=== PATIENT | female | born 1970 | race Caucasian/White ===

== ENCOUNTER 2016-09-11 20:07 | Inpatient (IN) | payer BC ==
[~2016-09-11] VITALS: Ht 162.6 cm; Wt 89.8 kg
[~2016-09-11 20:07] MED LIST: HYZAAR 100-251 EACH ORAL; JANUVIA100 MG ORAL; LANTUS SOL100 UNIT/1 SUBQ; SYNTHROID100 MCG ORAL
[2016-09-11 20:20] VITALS: BP 172/94
[2016-09-11] MEDS ORDERED: HYDROmorphone 1mg/ml Carpuject IVP ONE ×2 (20:30→22:45)
[2016-09-11] MEDS ORDERED: Enoxaparin 100mg Inj SUBQ ONE (20:30)
--- NOTE | 2016-09-11 20:33 | Emergency Room Report ---
History of Present Illness General Chief Complaint: Chest Pain Source: Patient (LORNA GARDNER D.O.) Present Illness HPI Patient presents with complaints of chest pain Chest tightness 11/05 patient reports that she had a filter put in to her lower extremity 3 months ago at [facility] [place] where she lives most of the time For the past several days she has not been able to take her Coumadin as she has been vomiting Denies any fevers or chills Denies any diarrhea However she has epigastric abdominal pain as well Denies any fall or trauma (LORNA GARDNER D.O.) Allergies: Coded Allergies: CODEINE (Verified Allergy, Unknown, SWELLING, ITCHING, 12/06/09) IBUPROFEN (Verified Allergy, Unknown, SWELLING, ITCHING, 12/06/09) METOCLOPRAMIDE (Verified Allergy, Unknown, SWELLING, ITCHING, 12/06/09) MORPHINE (Verified Allergy, Unknown, SWELLING, ITCHING, 12/06/09) Patient History Past Medical History: see triage record Pertinent Family History: none Last Menstrual Period: 09/02/16 Now: No Reviewed Nursing Documentation: PMH: Agreed, PSxH: Agreed (LORNA GARDNER D.O.) Nursing Documentation-PMH Hx Hypertension: Yes Hx Diabetes: Yes (LORNA GARDNER D.O.) Review of Systems All Other Systems: negative except mentioned in HPI (LORNA GARDNER D.O.) Physical Exam Vital Signs Date Time Temp Pulse Resp B/P Pulse Ox O2 Delivery O2 Flow Rate FiO2 09/11/16 20:11 98.1 58 17 172/94 99 Room Air Sp02 EP Interpretation: reviewed, normal General Appearance: no apparent distress Head: normocephalic, atraumatic Eyes: bilateral eye EOMI, bilateral eye PERRL ENT: hearing grossly normal, normal pharynx, TMs + canals normal, uvula midline Neck: full range of motion, supple, no meningismus, no bony tend Respiratory: lungs clear, normal breath sounds, no rhonchi, no respiratory distress, no retraction, no accessory muscle use Cardiovascular #1: normal peripheral pulses, regular rate, rhythm, no edema, no gallop, no JVD, no murmur Gastrointestinal: normal bowel sounds, non tender, soft, no mass, no organomegaly, non-distended, no guarding, no hernia, no pulsatile mass, no rebound Genitourinary: no CVA tenderness Musculoskeletal: normal inspection Neurologic: oriented x3, responsive, pruner III-XII nml as tested, motor strength/ tone normal, sensory intact Psychiatric: mood/affect normal Skin: normal color, no rash, warm/dry, palpation normal Lymphatic: normal inspection, no adenopathy (LORNA GARDNER D.O.) Medical Decision Making Diagnostic Impression: Primary Impression: Pulmonary embolism Qualified Codes: I26.99 - Other pulmonary embolism without acute cor pulmonale Additional Impressions: Post IVC filter placement Non compliance w medication regimen ER Course Patient is a fairly complex patient with multiple differential to consideration including but not limited to cardiac cardiopulmonary and vascular emergencies Patient's multiple comorbidities is also on Coumadin however Has not been able taken over the past several days secondary to her nausea and vomiting therefore patient was given Lovenox upon arrival given her symptomatology Patient will require further inpatient care (LORNA GARDNER D.O.) ER Course Signed out to me by Dr. Gardner. Please see his complete note. Radiologist called with + CTA at 0:37 - small burden RLL. Patient treated for pain. VS stable. Anticoagulation ordered by Dr. Gardner. Notified Dr. Alvarado. (Lion Blount M.D.) EKG Diagnostic Results Rate: bradycardiac Rhythm: other ST Segments: no acute changes (LORNA GARDNER D.O.) Rhythm Strip Diag. Results EP Interpretation: yes Rate: 55 Rhythm: no PVC's, no ectopy, other - Sinus bradycardia (LORNA GARDNER D.O.) Rhythm: NSR, no PVC's, no ectopy (Lion Blount M.D.) Last Vital Signs Date Time Temp Pulse Resp B/P Pulse Ox O2 Delivery O2 Flow Rate FiO2 09/11/16 20:11 98.1 58 17 172/94 99 Room Air Status: improved (LORNA GARDNER D.O.) Last Vital Signs Date Time Temp Pulse Resp B/P Pulse Ox O2 Delivery O2 Flow Rate FiO2 09/12/16 11:39 97.9 58 18 146/72 98 Room Air Status: improved (Lion Blount M.D.) Disposition: ADMITTED INPATIENT Condition: Serious LORNA GARDNER D.O. Sep 11, 2016 20:33 Lion Blount M.D. Sep 12, 2016 00:38
[2016-09-11 21:11] LABS: BASOPHILS % (AUTO) 1.4 % (0.0-2.0); EOSINOPHILS % (AUTO) 1.3 % (0.0-3.0); LYMPHOCYTES % (AUTO) 31.1 % (20.0-45.0); MEAN CORPUSCULAR HEMOGLOBIN 24.8 PG (27.0-31.0); MEAN CORPUSCULAR HGB CONC 30.5 G/DL (32.0-36.0); MEAN CORPUSCULAR VOLUME 82 FL (80-99); MEAN PLATELET VOLUME 6.4 FL (6.5-10.1); MONOCYTES % (AUTO) 8.9 % (1.0-10.0); NEUTROPHILS % (AUTO) 57.3 % (45.0-75.0); PLATELET COUNT 263 K/UL (150-450); RED BLOOD COUNT 3.93 M/UL (4.20-5.40); RED CELL DISTRIBUTION WIDTH 15.5 % (11.6-14.8); WHITE BLOOD COUNT 3.6 K/UL (4.8-10.8)
[2016-09-11 21:23] LABS: PROTHROMBIN TIME 10.5 SEC (9.30-11.50)
[2016-09-11 21:29] LABS: TROPONIN I < 0.30 ng/mL (<=0.30)
[2016-09-11 21:30] LABS: ALANINE AMINOTRANSFERASE 14 U/L (3-33); ALBUMIN/GLOBULIN RATIO 1.3 (1.0-2.7); ANION GAP 16 (5-15); ASPARTATE AMINO TRANSFERASE 11 U/L (5-40); CALCIUM 9.1 mg/dL (8.6-10.2); CARBON DIOXIDE 25 mEQ/L (20-30); CHLORIDE 105 mEQ/L (98-107); CREATININE 0.7 mg/dL (0.5-0.9); GLOMERULAR FILTRATION RATE > 60 mL/min (>60); HEMOLYSIS 1; LIPASE 22 U/L (< 60); POTASSIUM 3.3 mEQ/L (3.4-4.9); SODIUM 146 mEQ/L (135-145)
[2016-09-11 21:40] LABS: CKMB < 1.5 ng/mL (< 3.8)
[2016-09-11 22:20] VITALS: BP 151/65
[2016-09-12] VITALS (7 sets, daily range): BP systolic 136–152; BP diastolic 70–88
[2016-09-12] MEDS ORDERED: LORazepam 0.5mg tab ORAL ONE (01:00)
[2016-09-12] MEDS ORDERED: OXYCODONE HCL30 MG PO (01:32)
[2016-09-12] MEDS ORDERED: AMLODIPINE BESY10 MG PO (01:32)
[2016-09-12] MEDS ORDERED: WARFARIN SODIU7.5 MG PO (01:32)
[2016-09-12] MEDS ORDERED: OXYCONTIN40 MG ORAL (01:33)
[2016-09-12] MEDS: HYDROmorphone 1mg/ml Carpuject IVP PRN ×3 (02:09→10:14)
[2016-09-12 04:48] LABS: TROPONIN I < 0.30 ng/mL (<=0.30)
--- NOTE | 2016-09-12 09:02 | Diagnostic Imaging Report ---
ndication: Chest pain Technique: IV administration nonionic contrast. Spiral acquisitions obtained from the lung bases to the lung apices. Multiplanar and 3-D reconstructions were generated. Total dose length product 1007 mGycm. CTDIvol(s) 12, 12, 25, 32 mGy. Dose reduction achieved using automated exposure control Comparison: None Findings: Pulmonary arterial opacification is adequate. A small filling defect is seen in the distal right lower lobe pulmonary artery, extending into the posterior medial and posterior lateral basilar segmental branches. A tiny filling defect is also seen within the left lower lobe lateral basilar segmental branch. Neither these appear to be occlusive. There is no evidence of thoracic aortic aneurysm or dissection. No pulmonary arterial dilatation. No evidence of right ventricular dilatation. The heart size is normal. The lungs demonstrate posterior dependent atelectatic changes, otherwise unremarkable. No infiltrates, effusions, masses, or nodules. The upper abdomen demonstrates evidence of prior gastric bypass surgery and cholecystectomy. Opacities within the bilateral renal kyrie presumably represent contrast excretion into the collecting system. On the cost accounting manager image, an inferior vena cava filter is noted. No pericardial effusion. No mediastinal or hilar mass or adenopathy. No axillary or chest wall mass or adenopathy. Impression: Positive for small bilateral lower lobe segmental pulmonary emboli, as described Patient has an inferior vena cava filter, demonstrated on cost accounting manager image. Dr. Murphy was notified of this at the time of interpretation as it was not described on the preliminary report No acute pulmonary process. There are minimal posterior dependent atelectatic changes Incidental findings as noted, including prior cholecystectomy, prior gastric bypass surgery The CT scanner at [facility] is accredited by the [employer] and the scans are performed using protocols designed to limit radiation exposure to as low as reasonably achievable to attain images of sufficient resolution adequate for diagnostic evaluation.
--- NOTE | 2016-09-12 12:43 | History and Physical ---
History of Present Illness General Reason for Hospitalization: Chest Pain Present Illness HPI 46 yr old female presents with complaints of right sided chest pain and chest tightness 03/07 x 4days, also c/o N/V and diarrhea x 4days, patient reports that she had a filter put in to her lower extremity 3 months ago at [facility] [place] where she lives most of the time. For the past several days she has not been able to take her Coumadin as she has been vomiting. Denies any fevers or chills Denies any fall or trauma Allergies: Coded Allergies: CODEINE (Verified Allergy, Unknown, SWELLING, ITCHING, 12/06/09) IBUPROFEN (Verified Allergy, Unknown, SWELLING, ITCHING, 12/06/09) METOCLOPRAMIDE (Verified Allergy, Unknown, SWELLING, ITCHING, 12/06/09) MORPHINE (Verified Allergy, Unknown, SWELLING, ITCHING, 12/06/09) Medication History Scheduled Amlodipine Besylate* (Amlodipine Besylate*), 10 MG PO DAILY, (Reported) Insulin Glargine (Lantus), 15 UNITS SUBQ BEDTIME, (Reported) Levothyroxine Sodium* (Synthroid*), 100 MCG ORAL DAILY, (Reported) Losartan/Hydrochlorothiazide 100-25 Tablet (Hyzaar 100-25 Tablet), 1 TAB ORAL DAILY, (Reported) Oxycodone Hcl Er* (Oxycontin*), 60 MG ORAL THREE TIMES A DAY, (Reported) Scheduled PRN Oxycodone Hcl (Oxycodone Hcl), 30 MG PO EVERY 3 HOURS PRN for Breakthrough Pain, (Reported) Discontinued Medications Sitagliptin (Januvia), 100 MG ORAL DAILY, (Reported) Discontinued Reason: Pt stopped taking med Warfarin Sod* (Warfarin Sod*), 7.5 MG PO DAILY, (Reported) Discontinued Reason: Medication dose changed Patient History History Provided By: Patient Healthcare decision maker Resuscitation status Full Code Advanced Directive on File Past Medical/Surgical History Past Medical/Surgical History: (1) Hypotension (2) Chronic pain disorder (3) Pulmonary embolism Social History Social History: (1) Does not smoke (2) No illicit drug use (3) No history of alcohol use Review of Systems Constitutional: Reports: weakness Eye: Denies: acuity changes, blurred vision, discharge, double vision, eye pain , no symptoms, nose congestion, nose pain, other, see HPI, tearing ENT: Denies: ear discharge, ear pain, hearing loss, mouth pain, nasal discharge , no symptoms, nose congestion, nose pain, other, see HPI, throat pain, throat swelling Respiratory: Denies: HUERTA, cough, no symptoms, orthopnea, other, see HPI, shortness of breath, sputum, stridor, wheezing Cardiovascular: Reports: chest pain Gastrointestinal: Reports: abdominal pain Genitourinary: Denies: discharge, dysuria, frequency, hematuria, incontinence, no symptoms, other, pain, retention, see HPI, urgency, vag bleed/dc Musculoskeletal: Reports: back pain Skin: Denies: change in color, change in hair/nails, dryness, lesions, no symptoms, other, rash, see HPI Psychiatric: Denies: HI, SI, anxiety, depressed feelings, emotional problems, hallucinations, no symptoms, other, prior hx, see HPI Neurological: Denies: dizziness, focal weakness, headache, no symptoms, numbness, other, paresthesia, see HPI, seizure, syncope, tingling, tremors Endocrine: Denies: excessive sweating, flushing, increased thirst, increased urine, intolerance to temperature, no symptoms, other, see HPI, unexplained weight loss Hematologic/Lymphatic: Denies: anemia, blood clots, diathesis, easy bleeding, easy bruising, no symptoms, other, see HPI, swollen glands Physical Exam General Appearance: no apparent distress, alert Lines, tubes and drains: peripheral HEENT: normocephalic, atraumatic Neck: normal alignment Respiratory/Chest: normal breath sounds, no respiratory distress Cardiovascular/Chest: normal rate, regular rhythm, no JVD Abdomen: non tender, soft, no organomegaly Extremities: non-tender, normal inspection, no calf tenderness Neurologic: alert, oriented x 3, responsive Last 24 Hour Vital Signs Date Time Temp Pulse Resp B/P Pulse Ox O2 Delivery O2 Flow Rate FiO2 09/12/16 11:39 97.9 58 18 146/72 98 Room Air 09/12/16 08:00 50 09/12/16 07:51 97.0 48 18 152/78 97 Room Air 09/12/16 04:00 97.7 49 20 146/81 97 Room Air 09/12/16 04:00 54 09/12/16 01:38 98.1 52 20 152/88 97 Room Air 09/12/16 00:57 98.1 57 18 149/76 99 Room Air 09/12/16 00:20 98.1 57 17 149/76 99 Room Air 09/11/16 22:20 98.1 56 17 151/65 99 Room Air 09/11/16 21:31 98.1 09/11/16 21:31 98.1 09/11/16 20:20 58 17 Room Air 09/11/16 20:20 98.1 58 17 172/94 99 Room Air 09/11/16 20:11 98.1 58 17 172/94 99 Room Air Intake and Output 09/11/16 09/12/16 19:00 07:00 Intake Total 100 ml Balance 100 ml Intake Other 100 ml # Voids 1 Laboratory Tests Test 09/11/16 20:50 09/12/16 04:05 White Blood Count 3.6 K/UL (4.8-10.8) L Red Blood Count 3.93 M/UL (4.20-5.40) L Hemoglobin 9.8 G/DL (12.0-16.0) L Hematocrit 32.0 % (37.0-47.0) L Mean Corpuscular Volume 82 FL (80-99) Mean Corpuscular Hemoglobin 24.8 PG (27.0-31.0) L Mean Corpuscular Hemoglobin Concent 30.5 G/DL (32.0-36.0) L Red Cell Distribution Width 15.5 % (11.6-14.8) H Platelet Count 263 K/UL (150-450) Mean Platelet Volume 6.4 FL (6.5-10.1) L Neutrophils (%) (Auto) 57.3 % (45.0-75.0) Lymphocytes (%) (Auto) 31.1 % (20.0-45.0) Monocytes (%) (Auto) 8.9 % (1.0-10.0) Eosinophils (%) (Auto) 1.3 % (0.0-3.0) Basophils (%) (Auto) 1.4 % (0.0-2.0) Prothrombin Time 10.5 SEC (9.30-11.50) Prothromb Time International Ratio 1.0 (0.9-1.1) Activated Partial Thromboplast Time 23 SEC (23-33) Sodium Level 146 mEQ/L (135-145) H Potassium Level 3.3 mEQ/L (3.4-4.9) L Chloride Level 105 mEQ/L (98-107) Carbon Dioxide Level 25 mEQ/L (20-30) Anion Gap 16 (5-15) H Blood Urea Nitrogen 7 mg/dL (7-23) Creatinine 0.7 mg/dL (0.5-0.9) Estimat Glomerular Filtration Rate > 60 mL/min (>60) Glucose Level 159 mg/dL (74-106) H Calcium Level 9.1 mg/dL (8.6-10.2) Total Bilirubin 0.5 mg/dL (0.0-1.2) Aspartate Amino Transf (AST/SGOT) 11 U/L (5-40) Alanine Aminotransferase (ALT/SGPT) 14 U/L (3-33) Alkaline Phosphatase 108 U/L (35-104) H Total Creatine Kinase 72 U/L (26-140) Creatine Kinase MB < 1.5 ng/mL (< 3.8) Creatine Kinase MB Relative Index Troponin I < 0.30 ng/mL (<=0.30) < 0.30 ng/mL (<=0.30) Pro-B-Type Natriuretic Peptide 258 pg/mL (0-125) H Total Protein 7.0 g/dL (6.6-8.7) Albumin 4.0 g/dL (3.5-5.2) Globulin 3.0 g/dL Albumin/Globulin Ratio 1.3 (1.0-2.7) Lipase 22 U/L (< 60) Height (Feet): 5 Height (Inches): 4.00 Weight (Pounds): 198 Medications Current Medications Medications (Trade) Dose Ordered Sig/Joey Route PRN Reason Start Time Stop Time Status Last Admin Dose Admin Dextrose (Dextrose 50%) STAT PRN IV Hypoglycemia 09/12/16 00:45 10/12/16 00:44 Enoxaparin Sodium (Lovenox) 100 mg EVERY 12 HOURS SUBQ 09/12/16 12:30 10/12/16 12:29 UNV Hydromorphone HCl (Dilaudid) 1 mg Q4H PRN IVP For Pain 09/12/16 01:30 09/19/16 01:29 09/12/16 10:14 Warfarin Sodium (Coumadin per pharmacy) 1 ea DAILY PRN MISC Per rx protocol 09/12/16 12:30 10/12/16 12:29 UNV Objective Narrative Impression: Positive for small bilateral lower lobe segmental pulmonary emboli, as described Patient has an inferior vena cava filter, demonstrated on content engineer image. Dr. Murphy was notified of this at the time of interpretation as it was not described on the preliminary report No acute pulmonary process. There are minimal posterior dependent atelectatic changes Incidental findings as noted, including prior cholecystectomy, prior gastric bypass surgery Assessment/Plan Problem List: (1) Non compliance w medication regimen ICD Codes: Z91.14 - Patient's other noncompliance with medication regimen SNOMED: 804063258 (2) Pulmonary embolism ICD Codes: I26.99 - Other pulmonary embolism without acute cor pulmonale SNOMED: 67416453, [id number] Qualifiers: Qualified Codes: I26.99 - Other pulmonary embolism without acute cor pulmonale (3) Chest pain ICD Codes: R07.9 - Chest pain, unspecified SNOMED: 36564332 (4) Vomiting ICD Codes: R11.10 - Vomiting, unspecified SNOMED: 733757197 (5) Diarrhea ICD Codes: R19.7 - Diarrhea, unspecified SNOMED: 10458922 Assessment/Plan Start lovenox and coumadin, f/u with hematology Daily INR Cardio consult Pulmo consult Monitor lytes BP control Pain management Lillian Dexter N.P. Sep 12, 2016 12:43
[2016-09-12 13:09] LABS: PROTHROMBIN TIME 10.5 SEC (9.30-11.50)
[2016-09-12 13:13] LABS: TROPONIN I < 0.30 ng/mL (<=0.30)
[2016-09-12] MEDS: LORazepam Inj 2mg/ml 1ml IV PRN ×3 (13:18→21:46)
--- NOTE | 2016-09-12 13:42 | Cardiology Report ---
APPROVED REPORT EKG Measurement Heart [id number] Sinus bradycardia Otherwise normal ECG
--- NOTE | 2016-09-12 13:49 | Infectious Diseases Prog Note ---
Assessment/Plan Problems: (1) Diarrhea Assessment & Plan: rule out infectious etiology , will send stool for culture , and C diff toxin, and start ceftriaxon with flagyl (2) Pulmonary embolism Assessment & Plan: needs full anticoagulation, since she was not taking her Coumadin at home due to vomiting. (3) Chest pain Assessment & Plan: suspect due to pulmonary embolisms, recommend immediate full anticoagulation, and HEM/ONC consult, needs to rule out ACS, monitor troponin , consult cards (4) Vomiting Assessment & Plan: continue supportive care, check lipase (5) S/P IVC filter Assessment & Plan: due to previous DVT Subjective Allergies: Coded Allergies: CODEINE (Verified Allergy, Unknown, SWELLING, ITCHING, 12/06/09) IBUPROFEN (Verified Allergy, Unknown, SWELLING, ITCHING, 12/06/09) METOCLOPRAMIDE (Verified Allergy, Unknown, SWELLING, ITCHING, 12/06/09) MORPHINE (Verified Allergy, Unknown, SWELLING, ITCHING, 12/06/09) Objective Vital Signs Last 24 Hour Vital Signs Date Time Temp Pulse Resp B/P Pulse Ox O2 Delivery O2 Flow Rate FiO2 09/12/16 11:39 97.9 58 18 146/72 98 Room Air 09/12/16 08:00 50 09/12/16 07:51 97.0 48 18 152/78 97 Room Air 09/12/16 04:00 97.7 49 20 146/81 97 Room Air 09/12/16 04:00 54 09/12/16 01:38 98.1 52 20 152/88 97 Room Air 09/12/16 00:57 98.1 57 18 149/76 99 Room Air 09/12/16 00:20 98.1 57 17 149/76 99 Room Air 09/11/16 22:20 98.1 56 17 151/65 99 Room Air 09/11/16 21:31 98.1 09/11/16 21:31 98.1 09/11/16 20:20 58 17 Room Air 09/11/16 20:20 98.1 58 17 172/94 99 Room Air 09/11/16 20:11 98.1 58 17 172/94 99 Room Air Height (Feet): 5 Height (Inches): 4.00 Weight (Pounds): 198 Laboratory Tests Test 09/11/16 20:50 09/12/16 04:05 09/12/16 12:15 White Blood Count 3.6 K/UL (4.8-10.8) L Red Blood Count 3.93 M/UL (4.20-5.40) L Hemoglobin 9.8 G/DL (12.0-16.0) L Hematocrit 32.0 % (37.0-47.0) L Mean Corpuscular Volume 82 FL (80-99) Mean Corpuscular Hemoglobin 24.8 PG (27.0-31.0) L Mean Corpuscular Hemoglobin Concent 30.5 G/DL (32.0-36.0) L Red Cell Distribution Width 15.5 % (11.6-14.8) H Platelet Count 263 K/UL (150-450) Mean Platelet Volume 6.4 FL (6.5-10.1) L Neutrophils (%) (Auto) 57.3 % (45.0-75.0) Lymphocytes (%) (Auto) 31.1 % (20.0-45.0) Monocytes (%) (Auto) 8.9 % (1.0-10.0) Eosinophils (%) (Auto) 1.3 % (0.0-3.0) Basophils (%) (Auto) 1.4 % (0.0-2.0) Prothrombin Time 10.5 SEC (9.30-11.50) 10.5 SEC (9.30-11.50) Prothromb Time International Ratio 1.0 (0.9-1.1) 1.0 (0.9-1.1) Activated Partial Thromboplast Time 23 SEC (23-33) 25 SEC (23-33) Sodium Level 146 mEQ/L (135-145) H Potassium Level 3.3 mEQ/L (3.4-4.9) L Chloride Level 105 mEQ/L (98-107) Carbon Dioxide Level 25 mEQ/L (20-30) Anion Gap 16 (5-15) H Blood Urea Nitrogen 7 mg/dL (7-23) Creatinine 0.7 mg/dL (0.5-0.9) Estimat Glomerular Filtration Rate > 60 mL/min (>60) Glucose Level 159 mg/dL (74-106) H Calcium Level 9.1 mg/dL (8.6-10.2) Total Bilirubin 0.5 mg/dL (0.0-1.2) Aspartate Amino Transf (AST/SGOT) 11 U/L (5-40) Alanine Aminotransferase (ALT/SGPT) 14 U/L (3-33) Alkaline Phosphatase 108 U/L (35-104) H Total Creatine Kinase 72 U/L (26-140) Creatine Kinase MB < 1.5 ng/mL (< 3.8) Creatine Kinase MB Relative Index Troponin I < 0.30 ng/mL (<=0.30) < 0.30 ng/mL (<=0.30) < 0.30 ng/mL (<=0.30) Pro-B-Type Natriuretic Peptide 258 pg/mL (0-125) H Total Protein 7.0 g/dL (6.6-8.7) Albumin 4.0 g/dL (3.5-5.2) Globulin 3.0 g/dL Albumin/Globulin Ratio 1.3 (1.0-2.7) Lipase 22 U/L (< 60) Current Medications Medications (Trade) Dose Ordered Sig/Joey Route PRN Reason Start Time Stop Time Status Last Admin Dose Admin Dextrose (Dextrose 50%) STAT PRN IV Hypoglycemia 09/12/16 00:45 10/12/16 00:44 Enoxaparin Sodium (Lovenox) 90 mg Q12HR SUBQ 09/12/16 14:00 10/12/16 13:59 Hydromorphone HCl (Dilaudid) 1 mg Q4H PRN IVP For Pain 09/12/16 01:30 09/19/16 01:29 09/12/16 10:14 Lorazepam (Ativan 2mg/ml 1ml) 1 mg Q4H PRN IV For Anxiety 09/12/16 13:00 09/19/16 12:59 09/12/16 13:18 Warfarin Sodium (Coumadin per pharmacy) 1 ea DAILY PRN MISC Per rx protocol 09/12/16 12:30 10/12/16 12:29 Mateus Parra M.D. Sep 12, 2016 13:49
--- NOTE | 2016-09-12 14:48 | Diagnostic Imaging Report ---
Indication: Chest pain Technique: One view of the chest Comparison: 02/15/2010 Findings: Lungs and pleural spaces are clear. Heart size is normal. The top of an inferior vena cava filter is incidentally noted No significant change Impression: No acute process
[2016-09-12] MEDS: Enoxaparin Sodium 300mg/3ml vial SUBQ SCH ×2 (14:59→22:00)
[2016-09-12] MEDS: metroNIDAZOLE 500mg tab ORAL SCH ×2 (16:57→21:47)
[2016-09-12] MEDS: cefTRIAXone 1 GM in D5W 55 ML IVPB SCH (16:58)
[2016-09-12] MEDS ORDERED: Warfarin Sodium 7.5mg ORAL ONE (17:00)
--- NOTE | 2016-09-12 23:38 | Consultation ---
DATE OF CONSULTATION: INFECTIOUS DISEASES CONSULTATION CONSULTING PHYSICIAN: Mateus Betancourt M.D. REQUESTING PHYSICIAN: Francisco Gee M.D. REASON FOR CONSULTATION: Diarrhea, rule out infectious etiology. HISTORY OF PRESENT ILLNESS: The patient is a 46-year-old female with past medical history of hypertension, diabetes, and DVT, status post IVC filter placement, presented to [facility] with chest pain, abdominal pain, nausea, vomiting, and diarrhea. Her symptoms started a couple of days before presentation. The patient developed abdominal pain, mainly in the right side, was associated with vomiting and she vomited a couple of times. She also developed diarrhea, watery. She had five bowel movements since yesterday. No blood in the stool or mucus. Denied any recent hospitalization or antibiotics intake over the last couple of months. In ED, the patient had a CT angiogram of the chest that showed multiple small PEs, so she was admitted to the hospital and I was asked by the primary provider for antibiotics recommendation and workup of diarrhea to rule out infectious etiology. PAST MEDICAL HISTORY: Significant for hypertension, diabetes, and DVT, status post IVC filter placement. PAST SURGICAL HISTORY: Negative. MEDICATIONS: She is on warfarin, hydrochlorothiazide, Lovenox, lorazepam, and hydromorphone. ALLERGIES: She is allergic to codeine, ibuprofen, metoclopramide, and morphine. FAMILY HISTORY: Not contributory. REVIEW OF SYSTEMS: A 12-point of system reviewed were all negative apart from the one I mentioned above in my History and Physical. PHYSICAL EXAMINATION: VITAL SIGNS: Temperature 97.9 degrees, pulse 58, respirations 18, blood pressure 146/72, and saturation 98% on room air. GENERAL: This is an obese female, lying in bed, awake, alert, comfortable, not in distress. HEENT: Normocephalic and atraumatic. Pupils are reactive to light equally. Moist oral mucosa. No exudate. NECK: Supple. No lymphadenopathy. CARDIOVASCULAR: Regular rate and rhythm. No murmur or gallop. LUNGS: Clear bilaterally. No wheezing or rhonchi. ABDOMEN: Soft, obese, tender in the right lower aspect. No rebound. No organomegaly. EXTREMITIES: No edema or cyanosis. LABORATORY AND DIAGNOSTIC DATA: Labs showed white count of 3.6, hemoglobin of 9.8, and platelet count of 263,000. BUN 7 and creatinine 0.7. AST of 11, ALT of 14, and alkaline phosphatase of 108. INR of 1. Imaging, CT angiogram of the chest showed small bilateral lower lobe segmental pulmonary emboli. No acute pulmonary process. ASSESSMENT AND PLAN: 1. Diarrhea with nausea, vomiting, and abdominal pain, rule out infectious etiology. We will send stool for culture and Clostridium difficile toxin. We will start ceftriaxone and Flagyl empiric treatment. May need colonoscopy in the future if she had not done one soon. 2. Pulmonary embolism, needs full anticoagulation. The patient was not taking her Coumadin as supposed to. Recommend hematology consultation. 3. Chest pain. Suspect due to pulmonary embolus. Recommend continuous full anticoagulation and consultation. She may need cardiology consult to rule out acute coronary syndrome. Monitor troponin. Consult Cardiology. 4. Vomiting. Continue supportive care and check lipase level. 5. Status post inferior vena cava filter due to previous deep vein thrombosis, stable on CT scan. Mateus Betancourt M.D. DR: Dae JOB#: [id number] CC:
--- NOTE | 2016-09-12 23:38 | Consultation ---
DATE OF CONSULTATION: 09/12/2016 CARDIOLOGY CONSULTATION CONSULTING PHYSICIAN: Zack Ley M.D. REFERRING PHYSICIAN: Eamon Alvarado M.D. REASON FOR CONSULTATION: For management of bradycardia and chest pain. HISTORY OF PRESENT ILLNESS: The patient is a 46-year-old lady with history of hypertension and pulmonary embolus, who had undergone IVC filter placement about two months ago at [facility] where she lives most of the time. The patient has recurrent admissions to [facility] including last month. The patient is originally on a very high dose of Coumadin. The patient came to the emergency room complaining of chest pain and said that she has not been able to take care of her Coumadin as she has been vomiting for the last several days. The patient also complained of some epigastric pain and abdominal pain. Her EKG showed bradycardia at a rate of 54 and a Cardiology consultation was obtained for further evaluation. At the time of my evaluation, the patient denies any chest pain. No palpitations or shortness of breath. She underwent a chest CT in the emergency room that was positive for a small pulmonary embolism in the right lower lobe. PAST MEDICAL HISTORY: 1. History of deep venous thrombosis. 2. History of atypical chest pain. 3. History of pulmonary embolism. 4. Status post IVC filter. 5. Hypertension. 6. Anxiety disorder. FAMILY HISTORY: Noncontributory. SOCIAL HISTORY: She lives at home. She does not smoke or drink alcohol. REVIEW OF SYSTEMS: Review of systems was performed and was negative other than what was mentioned in the history of present illness. PHYSICAL EXAMINATION: VITAL SIGNS: Blood pressure is 146/72, pulse respirations 18, and she is afebrile. HEAD AND NECK: Showed no JVD or carotid bruits. LUNGS: Clear. CARDIOVASCULAR: Shows regular S1 and S2 with no gallop or murmur. ABDOMEN: Soft and nontender. EXTREMITIES: No pitting edema. LABORATORY AND DIAGNOSTIC DATA: EKG showed sinus bradycardia at a rate of 54. Her labs show white count of 3.6, hemoglobin 9.8, hematocrit of 37, and platelet count 263,000. Sodium 143, potassium 3.3, BUN of 7, creatinine 0.7, and glucose of 159. Troponin negative x3. BNP is 258. ASSESSMENT AND PLAN: 1. Chest pain. The pain is atypical. We will rule out for myocardial infarction. It could be secondary to a small right lower lobe pulmonary embolism. The patient's INR is only 1. The patient has a history of pulmonary embolism. We will resume on her Coumadin per pharmacy. In the meantime, we will start the patient on Lovenox 90 mg subcutaneous b.i.d. 2. Hypertension. We will start the patient on losartan hydrochlorothiazide 100/25 mg daily as well as an outpatient. 3. Hypothyroidism, on Synthroid. 4. Diabetes, on insulin. 5. Bradycardic. The patient is off beta-rush or Cardizem, . Case was discussed with the nurse at the bedside. Thank you very much, Dr. Alvarado, for allowing me to participate in the care of this patient. Please do not hesitate to contact me for any questions regarding my evaluation. Zack Ley M.D. DR: TREVOR JOB#: [id number] CC:
[2016-09-13] VITALS: BP 147/81
[2016-09-13] MEDS: LORazepam Inj 2mg/ml 1ml IV PRN ×5 (03:51→22:00)
[2016-09-13 04:00] VITALS: BP 155/87
[2016-09-13] MEDS: metroNIDAZOLE 500mg tab ORAL SCH ×3 (05:57→21:05)
[2016-09-13 07:58] VITALS: BP 163/90
[2016-09-13] MEDS: Hyzaar 12.5mg/50mg tab ORAL SCH (08:07)
[2016-09-13 08:10] LABS: MEAN CORPUSCULAR HGB CONC 30.4 G/DL (32.0-36.0); MEAN CORPUSCULAR VOLUME 79 FL (80-99); MEAN PLATELET VOLUME 7.5 FL (6.5-10.1); PLATELET COUNT 262 K/UL (150-450); RED BLOOD COUNT 3.92 M/UL (4.20-5.40); RED CELL DISTRIBUTION WIDTH 15.6 % (11.6-14.8); WHITE BLOOD COUNT 5.3 K/UL (4.8-10.8)
[2016-09-13 08:12] LABS: INR 1.1 (0.9-1.1); PROTHROMBIN TIME 10.7 SEC (9.30-11.50)
[2016-09-13 08:19] LABS: FERRITIN 8 ng/mL (13-150)
[2016-09-13] MEDS: Enoxaparin Sodium 300mg/3ml vial SUBQ SCH ×2 (08:40→21:04)
--- NOTE | 2016-09-13 09:18 | Consultation ---
DATE OF CONSULTATION: 09/12/2016 HEMATOLOGY/ONCOLOGY CONSULTATION CONSULTING PHYSICIAN: Matthew Mesa M.D. REQUESTING PHYSICIAN: Eamon Alvarado M.D. REASON FOR CONSULTATION: Evaluation of pulmonary emboli and DVT. IDENTIFYING DATA: Dear Dr. Eamon Alvarado, The patient is a pleasant 46-year-old female with a history of chronic DVT and pulmonary embolism sustained in December 2015, was placed on Coumadin, was refractory to Coumadin then had an IVC filter placed. Concurrently, she had pulmonary embolism, she contracted the same time and has otherwise had a reaction to Eliquis and Xarelto and now currently back on the Coumadin. IVC filter was placed approximately three months ago and she at this time presents with chest pain, chest tightness for the past four days. has been having nausea and vomiting, otherwise asymptomatic. PAST MEDICAL HISTORY: Pulmonary emboli as well as DVT . MEDICATIONS: Insulin, amlodipine, . ALLERGIES: . SOCIAL HISTORY: No alcohol, tobacco, or illicit drug use. CODE STATUS: Full Code. REVIEW OF SYSTEMS: Constitutional: No fever, chills, or night sweats. Skin: No rashes, lumps, or itching. HEENT: No headache, hearing, or vision changes. Breasts: No lumps, pain, or discharge. Pulmonary: No cough, sputum, or shortness of breath. Cardiovascular: No chest pain, tightness, or palpitations. Gastrointestinal: No nausea, vomiting, or diarrhea. Genitourinary: No dysuria, frequency, or urgency. Musculoskeletal:: No joint swelling, muscle pain, or trauma. Neurologic: No dizziness, fainting, or seizures. PHYSICAL EXAMINATION: GENERAL: The patient is in no acute distress. VITAL SIGNS: Temperature is 97.9 degrees Fahrenheit, pulse 58, respiratory rate 12, blood pressure , and pulse oximetry 98% on room air. PULMONARY: Clear to auscultation. CARDIOVASCULAR: Regular rhythm and rate. LABORATORY DATA: Labs have been reviewed. Calcium is 9.1. Platelet count is 263,000, hemoglobin 9.8, WBC 3.6, and . Pulmonary emboli, IVC filter. Continue Coumadin. DVT history, status post IVC filter placement. Currently pulmonary emboli. . Continue Coumadin. Continue Lovenox. . Blood pressure control. Per the patient, she has received hypocoagulable workup in the past. medications have been reviewed. We will obtain a peripheral smear. Imaging has been reviewed. From 09/11/2016, CTA reviewed, small bilateral lower lobes subsegmental emboli noted, status post IVC filter. Thank you, Dr. Eamon Alvarado for this kind referral. Please do not hesitate to contact me if you have any further questions. Matthew Mesa M.D. DR: Solomon JOB#: [id number] CC:
[2016-09-13 09:28] LABS: TROPONIN I < 0.30 ng/mL (<=0.30)
[2016-09-13 10:09] LABS: ANISOCYTOSIS 1+; BAND NEUTROPHILS % (MANUAL) 0 % (0-8); BASOPHILS % (MANUAL) 0 % (0-2); EOSINOPHILS % (MANUAL) 5 % (0-3); HYPOCHROMASIA 1+; LYMPHOCYTES % (MANUAL) 40 % (20-45); NEUTROPHILS % (MANUAL) 49 % (45-75); PLATELET ESTIMATE ADEQUATE; PLATELET MORPHOLOGY NORMAL; TOTAL CELLS COUNTED 100
[2016-09-13] MEDS ORDERED: D5W 275ml ONE (10:22)
[2016-09-13 10:26] LABS: PATH BLOOD SMEAR/OMC SENT TO PATHOLOGIST
[2016-09-13 12:14] VITALS: BP 157/78
--- NOTE | 2016-09-13 14:56 | Infectious Diseases Prog Note ---
Assessment/Plan Problems: (1) Diarrhea Assessment & Plan: rule out infectious etiology , await stool for culture , and C diff toxin, continue ceftriaxon with flagyl (2) Pulmonary embolism Assessment & Plan: on full anticoagulation, since she was not taking her Coumadin at home due to vomiting.continue coumadin, monitor INR Hematology is following (3) Chest pain Assessment & Plan: suspect due to pulmonary embolisms, on full anticoagulation , HEM/ONC is following , needs to rule out ACS, monitor troponin , cards is following (4) Vomiting Assessment & Plan: continue supportive care, check lipase (5) S/P IVC filter Assessment & Plan: due to previous DVT Subjective Constitutional: Reports: no symptoms HEENT: Reports: no symptoms Respiratory: Reports: no symptoms Cardiovascular: Reports: chest pain Gastrointestinal/Abdominal: Reports: bloating, diarrhea Genitourinary: Reports: no symptoms Neurologic: Reports: no symptoms Psychiatric: Reports: no symptoms Skin: Reports: no symptoms Endocrine: Reports: no symptoms Allergies: Coded Allergies: CODEINE (Verified Allergy, Unknown, SWELLING, ITCHING, 12/06/09) IBUPROFEN (Verified Allergy, Unknown, SWELLING, ITCHING, 12/06/09) METOCLOPRAMIDE (Verified Allergy, Unknown, SWELLING, ITCHING, 12/06/09) MORPHINE (Verified Allergy, Unknown, SWELLING, ITCHING, 12/06/09) Objective Vital Signs Last 24 Hour Vital Signs Date Time Temp Pulse Resp B/P Pulse Ox O2 Delivery O2 Flow Rate FiO2 09/13/16 12:14 98.1 63 14 157/78 99 Room Air 09/13/16 08:07 163/90 09/13/16 07:58 98.1 62 14 163/90 98 Room Air 09/13/16 04:00 54 09/13/16 04:00 97.7 55 21 155/87 99 Room Air 09/13/16 00:00 63 09/13/16 00:00 97.9 78 21 147/81 99 Room Air 09/12/16 20:00 98.6 66 20 136/70 96 Room Air 09/12/16 20:00 69 09/12/16 16:00 83 09/12/16 15:37 98.1 57 18 148/88 97 Room Air Height (Feet): 5 Height (Inches): 4.00 Weight (Pounds): 198 General Appearance: WD/WN, no acute distress HEENT: normocephalic, atraumatic, anicteric, mucous membranes moist Respiratory/Chest: chest wall non-tender, lungs clear, normal breath sounds, no respiratory distress, no accessory muscle use Cardiovascular: normal peripheral pulses, normal rate, regular rhythm, no gallop/murmur, no JVD Abdomen: normal bowel sounds, soft, non tender, no organomegaly, non distended , no mass, no scars Extremities: no cyanosis, no clubbing Skin: no rash, no lesions, no ulcers Laboratory Tests Test 09/13/16 07:20 White Blood Count 5.3 K/UL (4.8-10.8) Red Blood Count 3.92 M/UL (4.20-5.40) L Hemoglobin 9.4 G/DL (12.0-16.0) L Hematocrit 31.0 % (37.0-47.0) L Mean Corpuscular Volume 79 FL (80-99) L Mean Corpuscular Hemoglobin 24.0 PG (27.0-31.0) L Mean Corpuscular Hemoglobin Concent 30.4 G/DL (32.0-36.0) L Red Cell Distribution Width 15.6 % (11.6-14.8) H Platelet Count 262 K/UL (150-450) Mean Platelet Volume 7.5 FL (6.5-10.1) Neutrophils (%) (Auto) % (45.0-75.0) Lymphocytes (%) (Auto) % (20.0-45.0) Monocytes (%) (Auto) % (1.0-10.0) Eosinophils (%) (Auto) % (0.0-3.0) Basophils (%) (Auto) % (0.0-2.0) Differential Total Cells Counted 100 Neutrophils % (Manual) 49 % (45-75) Lymphocytes % (Manual) 40 % (20-45) Monocytes % (Manual) 6 % (1-10) Eosinophils % (Manual) 5 % (0-3) H Basophils % (Manual) 0 % (0-2) Band Neutrophils 0 % (0-8) Platelet Estimate Adequate Platelet Morphology Normal Hypochromasia 1+ Anisocytosis 1+ Hemoglobin A Pending Hemoglobin A2 Pending Hemoglobin C Pending Hemoglobin F () Pending Hemoglobin S Pending Variant Hemoglobin Pending Hemoglobin Electrophoresis Interp Pending Hemoglobin Interpretation Pending Hemoglobin Solubility Pending Haptoglobin 146 mg/dL (30-200) Prothrombin Time 10.7 SEC (9.30-11.50) Prothromb Time International Ratio 1.1 (0.9-1.1) D-Dimer 1184 ng/mL (<500) H Ferritin 8 ng/mL (13-150) L Troponin I < 0.30 ng/mL (<=0.30) Pro-B-Type Natriuretic Peptide 141 pg/mL (0-125) H Vitamin B12 Level 558 pg/mL (211-946) HIV (1&2) Antibody Rapid Negative (NEGATIVE) Current Medications Medications (Trade) Dose Ordered Sig/Joey Route PRN Reason Start Time Stop Time Status Last Admin Dose Admin Ceftriaxone Sodium/Dextrose (Rocephin/D5W) 55 ml @ 110 mls/hr Q24H IVPB 09/12/16 16:00 09/19/16 15:59 09/12/16 16:58 Dextrose (Dextrose 50%) STAT PRN IV Hypoglycemia 09/12/16 00:45 10/12/16 00:44 Enoxaparin Sodium (Lovenox) 90 mg Q12HR SUBQ 09/12/16 14:00 10/12/16 13:59 09/13/16 08:40 HCTZ/Losartan Potassium 1 tab 1 tab DAILY ORAL 09/13/16 09:00 10/13/16 08:59 09/13/16 08:07 Hydromorphone HCl (Dilaudid) 2 mg Q4H PRN IVP Abdominal cramps/Sev Pain 09/12/16 14:30 09/19/16 14:29 09/13/16 12:36 Lorazepam (Ativan 2mg/ml 1ml) 1 mg Q4H PRN IV For Anxiety 09/12/16 13:00 09/19/16 12:59 09/13/16 12:36 Metronidazole (Flagyl) 500 mg Q8HR ORAL 09/12/16 14:30 09/19/16 14:29 09/13/16 05:57 Warfarin Sodium (Coumadin per pharmacy) 1 ea DAILY PRN MISC Per rx protocol 09/12/16 12:30 10/12/16 12:29 Warfarin Sodium (Coumadin) 7.5 mg COUMADIN ONCE ORAL 09/13/16 17:00 09/13/16 17:01 Mateus Betancourt M.D. Sep 13, 2016 14:56
[2016-09-13 15:49] VITALS: BP 140/84
--- NOTE | 2016-09-13 16:20 | Cardiac Electrophysiology PN ---
Assessment/Plan Assessment/Plan 1. Chest pain. The pain is atypical. Ruled out for myocardial infarction. It could be secondary to a small right lower lobe pulmonary embolism.Continue Coumadin per pharmacy and Lovenox 90 mg subcutaneous b.i.d. 2. Hypertension. Continue losartan hydrochlorothiazide 500/25 mg daily 3. Hypothyroidism, on Synthroid. 4. Diabetes, on insulin. 5. Bradycardia.Better. Keep off beta-rush or Cardizem 6. Diarrhea. On Flagyl DW RN Subjective Subjective No chest pain or SOB. No arrhythmias on tele.Complains of generalized body ache. Got Dilaudid. Objective Last 24 Hour Vital Signs Date Time Temp Pulse Resp B/P Pulse Ox O2 Delivery O2 Flow Rate FiO2 09/13/16 15:49 98.1 104 20 140/84 97 Room Air 09/13/16 12:14 98.1 63 14 157/78 99 Room Air 09/13/16 08:07 163/90 09/13/16 07:58 98.1 62 14 163/90 98 Room Air 09/13/16 04:00 54 09/13/16 04:00 97.7 55 21 155/87 99 Room Air 09/13/16 00:00 63 09/13/16 00:00 97.9 78 21 147/81 99 Room Air 09/12/16 20:00 98.6 66 20 136/70 96 Room Air 09/12/16 20:00 69 Intake and Output 09/12/16 09/13/16 19:00 07:00 Intake Total 360 ml 300 ml Balance 360 ml 300 ml Intake Oral 360 ml 300 ml # Voids 1 # Bowel Movements 1 Laboratory Tests Test 09/13/16 07:20 White Blood Count 5.3 K/UL (4.8-10.8) Red Blood Count 3.92 M/UL (4.20-5.40) L Hemoglobin 9.4 G/DL (12.0-16.0) L Hematocrit 31.0 % (37.0-47.0) L Mean Corpuscular Volume 79 FL (80-99) L Mean Corpuscular Hemoglobin 24.0 PG (27.0-31.0) L Mean Corpuscular Hemoglobin Concent 30.4 G/DL (32.0-36.0) L Red Cell Distribution Width 15.6 % (11.6-14.8) H Platelet Count 262 K/UL (150-450) Mean Platelet Volume 7.5 FL (6.5-10.1) Neutrophils (%) (Auto) % (45.0-75.0) Lymphocytes (%) (Auto) % (20.0-45.0) Monocytes (%) (Auto) % (1.0-10.0) Eosinophils (%) (Auto) % (0.0-3.0) Basophils (%) (Auto) % (0.0-2.0) Differential Total Cells Counted 100 Neutrophils % (Manual) 49 % (45-75) Lymphocytes % (Manual) 40 % (20-45) Monocytes % (Manual) 6 % (1-10) Eosinophils % (Manual) 5 % (0-3) H Basophils % (Manual) 0 % (0-2) Band Neutrophils 0 % (0-8) Platelet Estimate Adequate Platelet Morphology Normal Hypochromasia 1+ Anisocytosis 1+ Hemoglobin A Pending Hemoglobin A2 Pending Hemoglobin C Pending Hemoglobin F () Pending Hemoglobin S Pending Variant Hemoglobin Pending Hemoglobin Electrophoresis Interp Pending Hemoglobin Interpretation Pending Hemoglobin Solubility Pending Haptoglobin 146 mg/dL (30-200) Prothrombin Time 10.7 SEC (9.30-11.50) Prothromb Time International Ratio 1.1 (0.9-1.1) D-Dimer 1184 ng/mL (<500) H Ferritin 8 ng/mL (13-150) L Troponin I < 0.30 ng/mL (<=0.30) Pro-B-Type Natriuretic Peptide 141 pg/mL (0-125) H Vitamin B12 Level 558 pg/mL (211-946) HIV (1&2) Antibody Rapid Negative (NEGATIVE) Objective HEAD AND NECK: Showed no JVD or carotid bruits. LUNGS: Clear. CARDIOVASCULAR: Carlos S1 and S2 with no gallop or murmur. ABDOMEN: Soft and nontender. EXTREMITIES: No pitting edema. ERIN MARTE Sep 13, 2016 16:20
[2016-09-13] MEDS: cefTRIAXone 1 GM in D5W 55 ML IVPB SCH ×2 (16:56→18:19)
[2016-09-13] MEDS ORDERED: Warfarin Sodium 7.5mg ORAL ONE (17:00)
--- NOTE | 2016-09-13 17:07 | Consultation ---
DATE OF CONSULTATION: PULMONARY CONSULTATION HISTORY OF PRESENT ILLNESS: This is a 46-year-old female with a previous history of obesity status post gastric bypass. She also has a history of hypertension, diabetes mellitus, and history of DVT and PE with apparent intolerance to normal oral anticoagulating agents and other medications. She has been on Coumadin, however, typically is admitted with noncompliance and has a subtherapeutic INR. She was again admitted to this hospital with a low PT/INR. She underwent a repeat CT angio, which again showed that she has a small pulmonary embolism. The patient recently undergone a IVC filter placed as well. PAST MEDICAL HISTORY: The patient's past history is notable for DVT, atypical chest pain, pulmonary embolism, IVC filter, hypertension, anxiety, medical noncompliance, previous gastric bypass, chronic abdominal pain, anemia, and depression. MEDICATIONS: Her list of home medications is summarized in the chart. ALLERGIES: None reported. REVIEW OF SYSTEMS: Denies any headaches, hematemesis, melena, or hematochezia. PHYSICAL EXAMINATION: GENERAL: Reveals a 46-year-old female. HEENT: Unremarkable. CHEST: Clear breath sounds bilaterally. ABDOMEN: Soft. EXTREMITIES: There is no edema. NEUROLOGIC: Nonfocal. IMPRESSION: 1. Recurrent pulmonary embolism. 2. Atypical chest pain. 3. Inferior vena cava filter. 4. History of chronic anticoagulation with medical compliance. 5. Hypertension. 6. Diabetes, in suppression. 7. Anemia. DISCUSSION: At this point, the patient has been seen by multiple specialties including Hematology and Cardiology. Concur with assessment that the patient needs to be on anticoagulation. She has been resumed back on the Coumadin per pharmacy. We will continue to follow and no further recommendations. Keyshawn Lantigua M.D. DR: LA JOB#: [id number] CC:
--- NOTE | 2016-09-13 17:56 | General Progress Note ---
Assessment/Plan Assessment/Plan Assessment/Recs: # Pulmonary emboli, is s/p IVC filter. Continue Coumadin for now, INR 2-3. Per the patient, she has received hypocoagulable workup in the past. # DVT history, status post IVC filter placement. On coumadin, tolerating high doses # Coagulopathy - continue Coumadin. Continue Lovenox. # Hypertension -is on blood pressure control. # S/P IVC filter # Requires outpatient followup for management of anticoagulation, has not tolerating eliquis or xarelto in the past # Appreciate consultation!! Subjective Constitutional: Reports: no symptoms HEENT: Reports: no symptoms Cardiovascular: Reports: no symptoms Respiratory: Reports: no symptoms Gastrointestinal/Abdominal: Reports: no symptoms Genitourinary: Reports: no symptoms Neurologic/Psychiatric: Reports: no symptoms Endocrine: Reports: no symptoms Hematologic/Lymphatic: Reports: anemia Allergies: Coded Allergies: CODEINE (Verified Allergy, Unknown, SWELLING, ITCHING, 12/06/09) IBUPROFEN (Verified Allergy, Unknown, SWELLING, ITCHING, 12/06/09) METOCLOPRAMIDE (Verified Allergy, Unknown, SWELLING, ITCHING, 12/06/09) MORPHINE (Verified Allergy, Unknown, SWELLING, ITCHING, 12/06/09) Subjective stable, no fevers or chills or night sweats are noted Objective Last 24 Hour Vital Signs Date Time Temp Pulse Resp B/P Pulse Ox O2 Delivery O2 Flow Rate FiO2 09/13/16 15:49 98.1 104 20 140/84 97 Room Air 09/13/16 12:14 98.1 63 14 157/78 99 Room Air 09/13/16 08:07 163/90 09/13/16 07:58 98.1 62 14 163/90 98 Room Air 09/13/16 04:00 54 09/13/16 04:00 97.7 55 21 155/87 99 Room Air 09/13/16 00:00 63 09/13/16 00:00 97.9 78 21 147/81 99 Room Air 09/12/16 20:00 98.6 66 20 136/70 96 Room Air 09/12/16 20:00 69 Intake and Output 09/12/16 09/13/16 19:00 07:00 Intake Total 360 ml 300 ml Balance 360 ml 300 ml Intake Oral 360 ml 300 ml # Voids 1 # Bowel Movements 1 Laboratory Tests 09/13/16 07:20: White Blood Count 5.3, Red Blood Count 3.92L, Hemoglobin 9.4L, Hematocrit 31.0L , Mean Corpuscular Volume 79L, Mean Corpuscular Hemoglobin 24.0L, Mean Corpuscular Hemoglobin Concent 30.4L, Red Cell Distribution Width 15.6H, Platelet Count 262, Mean Platelet Volume 7.5, Neutrophils (%) (Auto) , Lymphocytes (%) (Auto) , Monocytes (%) (Auto) , Eosinophils (%) (Auto) , Basophils (%) (Auto) , Differential Total Cells Counted 100, Neutrophils % ( Manual) 49, Lymphocytes % (Manual) 40, Monocytes % (Manual) 6, Eosinophils % ( Manual) 5H, Basophils % (Manual) 0, Band Neutrophils 0, Platelet Estimate Adequate, Platelet Morphology Normal, Hypochromasia 1+, Anisocytosis 1+, Hemoglobin A [Pending], Hemoglobin A2 [Pending], Hemoglobin C [Pending], Hemoglobin F () [Pending], Hemoglobin S [Pending], Variant Hemoglobin [ Pending], Hemoglobin Electrophoresis Interp [Pending], Hemoglobin Interpretation [Pending], Hemoglobin Solubility [Pending], Haptoglobin 146, Prothrombin Time 10.7, Prothromb Time International Ratio 1.1, D-Dimer 1184H, Ferritin 8L, Troponin I < 0.30, Pro-B-Type Natriuretic Peptide 141H, Vitamin B12 Level 558, HIV (1&2) Antibody Rapid Negative Height (Feet): 5 Height (Inches): 4.00 Weight (Pounds): 198 General Appearance: alert EENT: TMs normal Neck: supple Cardiovascular: regular rhythm Respiratory/Chest: normal breath sounds Abdomen: soft Extremities: non-tender Edema: 1+ Leg (L), 1+ Leg (R) Edema: mild edema Neurologic: alert Skin: warm/dry Matthew Mesa Sep 13, 2016 17:56
--- NOTE | 2016-09-13 19:01 | Nephrology Progress Note ---
Objective Objective Last 24 Hour Vital Signs Date Time Temp Pulse Resp B/P Pulse Ox O2 Delivery O2 Flow Rate FiO2 09/13/16 16:00 86 09/13/16 15:49 98.1 104 20 140/84 97 Room Air 09/13/16 12:14 98.1 63 14 157/78 99 Room Air 09/13/16 12:00 55 09/13/16 08:07 163/90 09/13/16 08:00 69 09/13/16 07:58 98.1 62 14 163/90 98 Room Air 09/13/16 04:00 54 09/13/16 04:00 97.7 55 21 155/87 99 Room Air 09/13/16 00:00 63 09/13/16 00:00 97.9 78 21 147/81 99 Room Air 09/12/16 20:00 98.6 66 20 136/70 96 Room Air 09/12/16 20:00 69 Intake and Output 09/12/16 09/13/16 19:00 07:00 Intake Total 360 ml 300 ml Balance 360 ml 300 ml Intake Oral 360 ml 300 ml # Voids 1 # Bowel Movements 1 Laboratory Tests 09/13/16 07:20: White Blood Count 5.3, Red Blood Count 3.92L, Hemoglobin 9.4L, Hematocrit 31.0L , Mean Corpuscular Volume 79L, Mean Corpuscular Hemoglobin 24.0L, Mean Corpuscular Hemoglobin Concent 30.4L, Red Cell Distribution Width 15.6H, Platelet Count 262, Mean Platelet Volume 7.5, Neutrophils (%) (Auto) , Lymphocytes (%) (Auto) , Monocytes (%) (Auto) , Eosinophils (%) (Auto) , Basophils (%) (Auto) , Differential Total Cells Counted 100, Neutrophils % ( Manual) 49, Lymphocytes % (Manual) 40, Monocytes % (Manual) 6, Eosinophils % ( Manual) 5H, Basophils % (Manual) 0, Band Neutrophils 0, Platelet Estimate Adequate, Platelet Morphology Normal, Hypochromasia 1+, Anisocytosis 1+, Hemoglobin A [Pending], Hemoglobin A2 [Pending], Hemoglobin C [Pending], Hemoglobin F () [Pending], Hemoglobin S [Pending], Variant Hemoglobin [ Pending], Hemoglobin Electrophoresis Interp [Pending], Hemoglobin Interpretation [Pending], Hemoglobin Solubility [Pending], Haptoglobin 146, Prothrombin Time 10.7, Prothromb Time International Ratio 1.1, D-Dimer 1184H, Ferritin 8L, Troponin I < 0.30, Pro-B-Type Natriuretic Peptide 141H, Vitamin B12 Level 558, HIV (1&2) Antibody Rapid Negative Height (Feet): 5 Height (Inches): 4.00 Weight (Pounds): 198 LAUREN FELIX Sep 13, 2016 19:01
[2016-09-13 20:00] VITALS: BP 157/91
[2016-09-13] MEDS ORDERED: oxyCODONE 15mg IR tab ORAL PRN (23:15)
[2016-09-14] VITALS: BP 123/67
[2016-09-14] MEDS: LORazepam Inj 2mg/ml 1ml IV PRN ×3 (02:54→11:41)
[2016-09-14 04:00] VITALS: BP 146/104
[2016-09-14] MEDS: cefTRIAXone 1 GM in D5W 55 ML IVPB SCH ×2 (05:23→17:05)
[2016-09-14] MEDS: metroNIDAZOLE 500mg tab ORAL SCH ×3 (06:00→22:04)
[2016-09-14 07:02] LABS: PROTHROMBIN TIME 10.4 SEC (9.30-11.50)
[2016-09-14 07:48] VITALS: BP 139/80
[2016-09-14] MEDS: Hyzaar 12.5mg/50mg tab ORAL SCH (08:40)
[2016-09-14] MEDS: oxyCODONE 15mg IR tab ORAL PRN ×4 (08:42→22:30)
[2016-09-14] MEDS: Enoxaparin Sodium 300mg/3ml vial SUBQ SCH ×2 (09:00→21:36)
--- NOTE | 2016-09-14 11:01 | Nephrology Progress Note ---
Assessment/Plan Problem List: (1) Non compliance w medication regimen (2) Pulmonary embolism (3) Chest pain (4) Vomiting (5) Diarrhea Plan Continue pain management Monitor lytes Monitor counts Monitor PT/INR- goal of 2 Pain management as tolerated Subjective Subjective Continue coumadin Continue lovenox Pain management Monitor H&H Monitor INR Objective Objective Last 24 Hour Vital Signs Date Time Temp Pulse Resp B/P Pulse Ox O2 Delivery O2 Flow Rate FiO2 09/14/16 08:40 139/80 09/14/16 07:48 98.1 76 18 139/80 99 Room Air 09/14/16 04:00 97.7 64 19 146/104 98 Room Air 09/14/16 04:00 77 09/14/16 00:00 96 09/14/16 00:00 97.8 71 21 123/67 96 Room Air 09/13/16 20:00 73 09/13/16 20:00 97.4 70 19 157/91 98 Room Air 09/13/16 16:00 86 09/13/16 15:49 98.1 104 20 140/84 97 Room Air 09/13/16 12:14 98.1 63 14 157/78 99 Room Air 09/13/16 12:00 55 Intake and Output 09/13/16 09/14/16 19:00 07:00 Intake Total 2500 ml 300 ml Balance 2500 ml 300 ml Intake Oral 2500 ml 300 ml # Voids 2 # Bowel Movements 2 Laboratory Tests 09/14/16 05:05: Prothrombin Time 10.4, Prothromb Time International Ratio 1.0 Height (Feet): 5 Height (Inches): 4.00 Weight (Pounds): 198 General Appearance: no apparent distress, alert EENT: normal ENT inspection Neck: normal alignment, supple Cardiovascular: normal rate, regular rhythm Respiratory/Chest: normal breath sounds, no respiratory distress Abdomen: non tender, soft, no organomegaly Extremities: non-tender, normal inspection Neurologic: alert, oriented x 3, responsive, normal mood/affect Lillian Dexter N.P. Sep 14, 2016 11:01
[2016-09-14 11:38] VITALS: BP 129/82
--- NOTE | 2016-09-14 12:26 | Infectious Diseases Prog Note ---
Assessment/Plan Problems: (1) Diarrhea Assessment & Plan: rule out infectious etiology , await stool for culture , and C diff toxin, continue ceftriaxon with flagyl (2) Pulmonary embolism Assessment & Plan: on full anticoagulation, since she was not taking her Coumadin at home due to vomiting.continue coumadin, monitor INR Hematology is following (3) Chest pain Assessment & Plan: suspect due to pulmonary embolisms, on full anticoagulation , HEM/ONC is following , needs to rule out ACS, monitor troponin , cards is following (4) Vomiting Assessment & Plan: continue supportive care, check lipase (5) S/P IVC filter Assessment & Plan: due to previous DVT Subjective Constitutional: Reports: no symptoms HEENT: Reports: no symptoms Respiratory: Reports: no symptoms Cardiovascular: Reports: no symptoms Gastrointestinal/Abdominal: Reports: bloating, diarrhea Genitourinary: Reports: no symptoms Neurologic: Reports: no symptoms Psychiatric: Reports: no symptoms Skin: Reports: no symptoms Allergies: Coded Allergies: CODEINE (Verified Allergy, Unknown, SWELLING, ITCHING, 12/06/09) IBUPROFEN (Verified Allergy, Unknown, SWELLING, ITCHING, 12/06/09) METOCLOPRAMIDE (Verified Allergy, Unknown, SWELLING, ITCHING, 12/06/09) MORPHINE (Verified Allergy, Unknown, SWELLING, ITCHING, 12/06/09) Objective Vital Signs Last 24 Hour Vital Signs Date Time Temp Pulse Resp B/P Pulse Ox O2 Delivery O2 Flow Rate FiO2 09/14/16 11:38 98.2 62 18 129/82 96 Room Air 09/14/16 08:40 139/80 09/14/16 07:48 98.1 76 18 139/80 99 Room Air 09/14/16 04:00 97.7 64 19 146/104 98 Room Air 09/14/16 04:00 77 09/14/16 00:00 96 09/14/16 00:00 97.8 71 21 123/67 96 Room Air 09/13/16 20:00 73 09/13/16 20:00 97.4 70 19 157/91 98 Room Air 09/13/16 16:00 86 09/13/16 15:49 98.1 104 20 140/84 97 Room Air Height (Feet): 5 Height (Inches): 4.00 Weight (Pounds): 198 General Appearance: WD/WN, no acute distress HEENT: normocephalic, atraumatic, anicteric, mucous membranes moist Respiratory/Chest: chest wall non-tender, lungs clear, normal breath sounds, no respiratory distress, no accessory muscle use Cardiovascular: normal peripheral pulses, normal rate, regular rhythm, no gallop/murmur, no JVD Abdomen: normal bowel sounds, soft, non tender, no organomegaly, non distended , no mass Extremities: no cyanosis Skin: no rash, no lesions Laboratory Tests Test 09/14/16 05:05 Prothrombin Time 10.4 SEC (9.30-11.50) Prothromb Time International Ratio 1.0 (0.9-1.1) Current Medications Medications (Trade) Dose Ordered Sig/Joey Route PRN Reason Start Time Stop Time Status Last Admin Dose Admin Ceftriaxone Sodium/Dextrose (Rocephin/D5W) 55 ml @ 110 mls/hr Q24H IVPB 09/12/16 16:00 09/19/16 15:59 09/13/16 18:19 Dextrose (Dextrose 50%) STAT PRN IV Hypoglycemia 09/12/16 00:45 10/12/16 00:44 Enoxaparin Sodium (Lovenox) 90 mg Q12HR SUBQ 09/12/16 14:00 10/12/16 13:59 09/13/16 21:04 HCTZ/Losartan Potassium 1 tab 1 tab DAILY ORAL 09/13/16 09:00 10/13/16 08:59 09/14/16 08:40 Hydromorphone HCl (Dilaudid) 2 mg Q4H PRN IVP Abdominal cramps/Sev Pain 09/12/16 14:30 09/19/16 14:29 09/14/16 10:44 Lorazepam (Ativan 2mg/ml 1ml) 1 mg Q4H PRN IV For Anxiety 09/12/16 13:00 09/19/16 12:59 09/14/16 11:41 Metronidazole (Flagyl) 500 mg Q8HR ORAL 09/12/16 14:30 09/19/16 14:29 09/14/16 06:00 Oxycodone HCl (Roxicodone) 30 mg Q4H PRN ORAL Moderate Pain (Pain Scale 4-6) 09/14/16 07:15 09/21/16 07:14 09/14/16 08:42 Warfarin Sodium (Coumadin per pharmacy) 1 ea DAILY PRN MISC Per rx protocol 09/12/16 12:30 10/12/16 12:29 Warfarin Sodium (Coumadin) 10 mg COUMADIN ONCE ORAL 09/14/16 17:00 09/14/16 17:01 Mateus Betancourt M.D. Sep 14, 2016 12:26
--- NOTE | 2016-09-14 12:40 | Pulmonology Progress Note ---
Assessment/Plan Assessment/Plan # Pulmonary emboli, is s/p IVC filter. Continue Coumadin for now, INR 2-3. Per the patient, she has received hypocoagulable workup in the past. # DVT history, status post IVC filter placement. On coumadin, tolerating high doses # Coagulopathy - continue Coumadin. Continue Lovenox. # Hypertension # S/P IVC filter Subjective Interval Events: Feeling better Constitutional: Reports: no symptoms HEENT: Repors: no symptoms Respiratory: Reports: no symptoms Cardiovascular: Reports: no symptoms Allergies: Coded Allergies: CODEINE (Verified Allergy, Unknown, SWELLING, ITCHING, 12/06/09) IBUPROFEN (Verified Allergy, Unknown, SWELLING, ITCHING, 12/06/09) METOCLOPRAMIDE (Verified Allergy, Unknown, SWELLING, ITCHING, 12/06/09) MORPHINE (Verified Allergy, Unknown, SWELLING, ITCHING, 12/06/09) Objective Last 24 Hour Vital Signs Date Time Temp Pulse Resp B/P Pulse Ox O2 Delivery O2 Flow Rate FiO2 09/14/16 11:38 98.2 62 18 129/82 96 Room Air 09/14/16 08:40 139/80 09/14/16 07:48 98.1 76 18 139/80 99 Room Air 09/14/16 04:00 97.7 64 19 146/104 98 Room Air 09/14/16 04:00 77 09/14/16 00:00 96 09/14/16 00:00 97.8 71 21 123/67 96 Room Air 09/13/16 20:00 73 09/13/16 20:00 97.4 70 19 157/91 98 Room Air 09/13/16 16:00 86 09/13/16 15:49 98.1 104 20 140/84 97 Room Air Intake and Output 09/13/16 09/14/16 19:00 07:00 Intake Total 2500 ml 300 ml Balance 2500 ml 300 ml Intake Oral 2500 ml 300 ml # Voids 2 # Bowel Movements 2 General Appearance: WD/WN HEENT: normocephalic Respiratory/Chest: chest wall non-tender Cardiovascular: normal peripheral pulses Laboratory Tests 09/14/16 05:05: Prothrombin Time 10.4, Prothromb Time International Ratio 1.0 Current Medications Medications (Trade) Dose Ordered Sig/Joey Route PRN Reason Start Time Stop Time Status Last Admin Dose Admin Ceftriaxone Sodium/Dextrose (Rocephin/D5W) 55 ml @ 110 mls/hr Q24H IVPB 09/12/16 16:00 09/19/16 15:59 09/13/16 18:19 Dextrose (Dextrose 50%) STAT PRN IV Hypoglycemia 09/12/16 00:45 10/12/16 00:44 Enoxaparin Sodium (Lovenox) 90 mg Q12HR SUBQ 09/12/16 14:00 10/12/16 13:59 09/13/16 21:04 HCTZ/Losartan Potassium 1 tab 1 tab DAILY ORAL 09/13/16 09:00 10/13/16 08:59 09/14/16 08:40 Hydromorphone HCl (Dilaudid) 2 mg Q4H PRN IVP Abdominal cramps/Sev Pain 09/12/16 14:30 09/19/16 14:29 09/14/16 10:44 Lorazepam (Ativan 2mg/ml 1ml) 1 mg Q4H PRN IV For Anxiety 09/12/16 13:00 09/19/16 12:59 09/14/16 11:41 Metronidazole (Flagyl) 500 mg Q8HR ORAL 09/12/16 14:30 09/19/16 14:29 09/14/16 06:00 Oxycodone HCl (Roxicodone) 30 mg Q4H PRN ORAL Moderate Pain (Pain Scale 4-6) 09/14/16 07:15 09/21/16 07:14 09/14/16 08:42 Warfarin Sodium (Coumadin per pharmacy) 1 ea DAILY PRN MISC Per rx protocol 09/12/16 12:30 10/12/16 12:29 Warfarin Sodium (Coumadin) 10 mg COUMADIN ONCE ORAL 09/14/16 17:00 09/14/16 17:01 Keyshawn Lantigua MD Sep 14, 2016 12:40
--- NOTE | 2016-09-14 15:07 | Cardiac Electrophysiology PN ---
Assessment/Plan Assessment/Plan 1. Chest pain. Atypical. Ruled out for myocardial infarction.Could be secondary to a small right lower lobe pulmonary embolism.Continue Coumadin per pharmacy and Lovenox 90 mg subcutaneous b.i.d. 2. Hypertension. Continue losartan/ hydrochlorothiazide 50/12.5 mg daily 3. Hypothyroidism, on Synthroid. 4. Diabetes, on insulin. 5. Bradycardia. Off any TAYLOR or AVN rush. ? etiology 6. Diarrhea. On Flagyl DW RN Subjective Subjective Carlos down to 45 at 9 am while awake on tele. Objective Last 24 Hour Vital Signs Date Time Temp Pulse Resp B/P Pulse Ox O2 Delivery O2 Flow Rate FiO2 09/14/16 11:38 98.2 62 18 129/82 96 Room Air 09/14/16 08:40 139/80 09/14/16 07:48 98.1 76 18 139/80 99 Room Air 09/14/16 04:00 97.7 64 19 146/104 98 Room Air 09/14/16 04:00 77 09/14/16 00:00 96 09/14/16 00:00 97.8 71 21 123/67 96 Room Air 09/13/16 20:00 73 09/13/16 20:00 97.4 70 19 157/91 98 Room Air 09/13/16 16:00 86 09/13/16 15:49 98.1 104 20 140/84 97 Room Air Intake and Output 09/13/16 09/14/16 19:00 07:00 Intake Total 2500 ml 300 ml Balance 2500 ml 300 ml Intake Oral 2500 ml 300 ml # Voids 2 # Bowel Movements 2 Laboratory Tests Test 09/14/16 05:05 Prothrombin Time 10.4 SEC (9.30-11.50) Prothromb Time International Ratio 1.0 (0.9-1.1) Objective HEAD AND NECK: No JVD or carotid bruits. LUNGS: Clear. CARDIOVASCULAR: Nl S1 and S2 with no gallop or murmur. ABDOMEN: Soft and nontender. EXTREMITIES: No pitting edema. ERIN MARTE Sep 14, 2016 15:07
[2016-09-14 16:19] VITALS: BP 142/92
[2016-09-14] MEDS ORDERED: Warfarin Sodium 10mg ORAL ONE (17:00)
[2016-09-14 20:00] VITALS: BP 135/83
--- NOTE | 2016-09-14 20:00 | Consultation ---
History of Present Illness General Date patient seen: Sep 14, 2016 Chief Complaint: Chest Pain Present Illness Allergies: Coded Allergies: CODEINE (Verified Allergy, Unknown, SWELLING, ITCHING, 12/06/09) IBUPROFEN (Verified Allergy, Unknown, SWELLING, ITCHING, 12/06/09) METOCLOPRAMIDE (Verified Allergy, Unknown, SWELLING, ITCHING, 12/06/09) MORPHINE (Verified Allergy, Unknown, SWELLING, ITCHING, 12/06/09) Medication History Scheduled Amlodipine Besylate* (Amlodipine Besylate*), 10 MG PO DAILY, (Reported) Insulin Glargine (Lantus), 15 UNITS SUBQ BEDTIME, (Reported) Levothyroxine Sodium* (Synthroid*), 100 MCG ORAL DAILY, (Reported) Losartan/Hydrochlorothiazide 100-25 Tablet (Hyzaar 100-25 Tablet), 1 TAB ORAL DAILY, (Reported) Oxycodone Hcl Er* (Oxycontin*), 60 MG ORAL THREE TIMES A DAY, (Reported) Warfarin Sod* (Warfarin Sod*), 7.5 MG PO DAILY, (Reported) Scheduled PRN Oxycodone Hcl (Oxycodone Hcl), 30 MG PO EVERY 3 HOURS PRN for Breakthrough Pain, (Reported) Discontinued Medications Sitagliptin (Januvia), 100 MG ORAL DAILY, (Reported) Discontinued Reason: Pt stopped taking med Patient History Healthcare decision maker pt alert and oriented x4 Resuscitation status Full Code Advanced Directive on File Physical Exam Last 24 Hour Vital Signs Date Time Temp Pulse Resp B/P Pulse Ox O2 Delivery O2 Flow Rate FiO2 09/14/16 16:19 97.3 70 18 142/92 97 Room Air 09/14/16 11:38 98.2 62 18 129/82 96 Room Air 09/14/16 08:40 139/80 09/14/16 07:48 98.1 76 18 139/80 99 Room Air 09/14/16 04:00 97.7 64 19 146/104 98 Room Air 09/14/16 04:00 77 09/14/16 00:00 96 09/14/16 00:00 97.8 71 21 123/67 96 Room Air 09/13/16 20:00 73 09/13/16 20:00 97.4 70 19 157/91 98 Room Air Intake and Output 09/13/16 09/14/16 19:00 07:00 Intake Total 2500 ml 300 ml Balance 2500 ml 300 ml Intake Oral 2500 ml 300 ml # Voids 2 # Bowel Movements 2 Laboratory Tests Test 09/14/16 05:05 Prothrombin Time 10.4 SEC (9.30-11.50) Prothromb Time International Ratio 1.0 (0.9-1.1) Height (Feet): 5 Height (Inches): 4.00 Weight (Pounds): 198 Medications Current Medications Medications (Trade) Dose Ordered Sig/Joey Route PRN Reason Start Time Stop Time Status Last Admin Dose Admin Ceftriaxone Sodium/Dextrose (Rocephin/D5W) 55 ml @ 110 mls/hr Q24H IVPB 09/12/16 16:00 09/19/16 15:59 09/14/16 17:05 Dextrose (Dextrose 50%) STAT PRN IV Hypoglycemia 09/12/16 00:45 10/12/16 00:44 Enoxaparin Sodium (Lovenox) 90 mg Q12HR SUBQ 09/12/16 14:00 10/12/16 13:59 09/13/16 21:04 HCTZ/Losartan Potassium 1 tab 1 tab DAILY ORAL 09/13/16 09:00 10/13/16 08:59 09/14/16 08:40 Hydromorphone HCl (Dilaudid) 2 mg Q4H PRN IVP Abdominal cramps/Sev Pain 09/12/16 14:30 09/19/16 14:29 09/14/16 15:06 Lorazepam (Ativan 2mg/ml 1ml) 1 mg Q4H PRN IV For Anxiety 09/12/16 13:00 09/19/16 12:59 09/14/16 11:41 Metronidazole (Flagyl) 500 mg Q8HR ORAL 09/12/16 14:30 09/19/16 14:29 09/14/16 13:54 Oxycodone HCl (Roxicodone) 30 mg Q4H PRN ORAL Moderate Pain (Pain Scale 4-6) 09/14/16 07:15 09/21/16 07:14 09/14/16 18:19 Warfarin Sodium (Coumadin per pharmacy) 1 ea DAILY PRN MISC Per rx protocol 09/12/16 12:30 10/12/16 12:29 Assessment/Plan Assessment/Plan (1) Chest pain (2) Pulmonary Embolism (3) Chronic Abdominal pain (4) Lumbago (5) Narcotic Dependency Seen dictated TYRESE BEDOYA Sep 14, 2016 20:00
[2016-09-14] MEDS: HYDROmorphone 2 MG in NS 55ml IVPB PRN (21:20)
[2016-09-14] MEDS: MS Contin 30mg tab ORAL SCH (22:03)
--- NOTE | 2016-09-14 22:29 | Consultation ---
DATE OF CONSULTATION: 09/14/2016 PAIN MANAGEMENT CONSULTATION CONSULTING PHYSICIAN: Lucy Andrews M.D. REFERRING PHYSICIAN: Eamon Alvarado M.D. PHYSICIAN REGISTERED VASCULAR TECHNOLOGIST (RVT): Efrem Phillips CHIEF COMPLAINT: Abdominal pain, chest pain, and low back pain. HISTORY OF PRESENT ILLNESS: This is a 46-year-old female, who is being seen on the telemetry floor of [facility] for a comprehensive pain management consultation. The patient has been admitted under the care of Dr. Alvarado complaining of right-sided chest pain, tightness with nausea, vomiting, and diarrhea, and complains of chronic abdominal pain due to history of gastric bypass. Since that time, she has been on high doses of narcotic medication as an outpatient being seen under the care of Dr. Tom Davis, who is prescribing the patient morphine extended release tablets 100 mg twice a day with oxycodone 30 mg tablets three to four tablets a day as needed for breakthrough pain. Upon admission here to the hospital, the patient was started on a Dilaudid 2 mg IV every 4 hours as needed for severe pain and oxycodone 30 mg tablet every 4 hours as needed for moderate pain. At this time, we were consulted so that the patient would have adequate pain control while here in the hospital. PAST MEDICAL HISTORY: Pulmonary emboli, DVT, hypertension, diabetes, and IVC placement. SOCIAL HISTORY: Denies smoking, tobacco, drinking alcohol, or IV drug abuse. ALLERGIES: Ibuprofen and metoclopramide. REVIEW OF SYSTEMS: Denies rash, fever, chills, sweating, dizziness, drowsiness, blurred vision, sore throat, or change in hearing or weight. No bowel or bladder incontinence. No dysuria. She is complaining of chest pain, abdominal pain, and low back pain. PHYSICAL EXAMINATION: GENERAL: Alert, awake, and oriented x3. VITAL SIGNS: Blood pressure 142/92, heart rate is 70, oxygen saturation is 95%, respiratory rate is 18, temperature is 97.3 degrees Fahrenheit. Height height 5 feet 4 inches and weight 198 pounds. HEENT: PERRLA. NECK: Range of motion is decreased in all directions. No tenderness. No adenopathy. LUNGS: Decreased breath sounds bilaterally. ABDOMEN: Obese with tenderness to palpation. BACK: Range of motion is decreased in flexion and extension with tenderness to paraspinal muscles. No tenderness to trapezius or rhomboid muscles. EXTREMITIES: Upper extremity range of motion is full in all directions. Motor is intact. No cyanosis. No clubbing. No edema. Sensory is intact. Reflexes are not obtainable. No adenopathy. Lower extremity range of motion is decreased due to the patient's clinical condition. Motor is intact. No cyanosis. No clubbing. No edema. Sensory is intact. Reflexes are not obtainable. No adenopathy. ASSESSMENT AND PLAN: This is a 46-year-old female with pulmonary embolism, chest pain, lumbago, chronic abdominal pain, and narcotic dependency. The patient will be started on morphine extended release 60 mg tablet every 12 hours round the clock and hold for sedation, oxycodone will be continued, 30 mg tablet every 4 hours as needed for moderate pain, and the Dilaudid will be changed to 2 mg IV piggyback every 4 hours as needed for severe pain. The patient was discussed with Dr. Andrews and Dr. Andrews concurred. We will follow the patient. Thank you very much for the courtesy of this consultation. Lucy Andrews M.D. LORRI Phillips DR: BENNETT JOB#: [id number] CC:
[2016-09-15] VITALS: BP 127/78
[2016-09-15] MEDS: LORazepam Inj 2mg/ml 1ml IV PRN ×3 (00:14→20:38)
[2016-09-15 04:00] VITALS: BP 139/93
[2016-09-15] MEDS: oxyCODONE 15mg IR tab ORAL PRN ×5 (04:05→23:48)
[2016-09-15] MEDS: metroNIDAZOLE 500mg tab ORAL SCH ×3 (06:09→21:40)
[2016-09-15 08:00] VITALS: BP 135/90
[2016-09-15 08:03] LABS: MEAN CORPUSCULAR HEMOGLOBIN 23.5 PG (27.0-31.0); MEAN CORPUSCULAR HGB CONC 29.6 G/DL (32.0-36.0); MEAN CORPUSCULAR VOLUME 79 FL (80-99); MEAN PLATELET VOLUME 6.7 FL (6.5-10.1); PLATELET COUNT 259 K/UL (150-450); RED CELL DISTRIBUTION WIDTH 15.4 % (11.6-14.8); WHITE BLOOD COUNT 3.4 K/UL (4.8-10.8)
[2016-09-15 08:27] LABS: ANION GAP 16 (5-15); CALCIUM 9.5 mg/dL (8.6-10.2); CARBON DIOXIDE 23 mEQ/L (20-30); CHLORIDE 99 mEQ/L (98-107); CREATININE 0.7 mg/dL (0.5-0.9); GLOMERULAR FILTRATION RATE > 60 mL/min (>60); HEMOLYSIS 2; POTASSIUM 3.9 mEQ/L (3.4-4.9); PROTHROMBIN TIME 10.1 SEC (9.30-11.50); SODIUM 138 mEQ/L (135-145)
[2016-09-15] MEDS: Hyzaar 12.5mg/50mg tab ORAL SCH (08:41)
[2016-09-15] MEDS: Enoxaparin Sodium 300mg/3ml vial SUBQ SCH ×2 (08:46→21:43)
--- NOTE | 2016-09-15 08:58 | Pulmonology Progress Note ---
Assessment/Plan Assessment/Plan # Pulmonary emboli, is s/p IVC filter. Continue Coumadin for now, INR 2-3. Per the patient, she has received hypocoagulable workup in the past. # DVT history, status post IVC filter placement. On coumadin, tolerating high doses # Coagulopathy - continue Coumadin. Continue Lovenox. # Hypertension # S/P IVC filter Subjective Interval Events: Still c/o chest pain Constitutional: Reports: no symptoms HEENT: Repors: no symptoms Respiratory: Reports: pleuritic pain Cardiovascular: Reports: no symptoms Gastrointestinal/Abdominal: Reports: no symptoms Allergies: Coded Allergies: CODEINE (Verified Allergy, Unknown, SWELLING, ITCHING, 12/06/09) IBUPROFEN (Verified Allergy, Unknown, SWELLING, ITCHING, 12/06/09) METOCLOPRAMIDE (Verified Allergy, Unknown, SWELLING, ITCHING, 12/06/09) MORPHINE (Verified Allergy, Unknown, SWELLING, ITCHING, 12/06/09) Objective Last 24 Hour Vital Signs Date Time Temp Pulse Resp B/P Pulse Ox O2 Delivery O2 Flow Rate FiO2 09/15/16 08:41 135/90 09/15/16 04:00 64 09/15/16 04:00 97.2 71 16 139/93 98 Room Air 09/15/16 00:38 67 09/15/16 00:00 97.9 78 16 127/78 98 Room Air 09/14/16 20:00 97.9 74 16 135/83 98 Room Air 09/14/16 16:19 97.3 70 18 142/92 97 Room Air 09/14/16 11:38 98.2 62 18 129/82 96 Room Air Intake and Output 09/14/16 09/15/16 19:00 07:00 Intake Total 240 ml 240 ml Balance 240 ml 240 ml Intake Oral 240 ml 240 ml # Voids 1 # Bowel Movements 1 General Appearance: WD/WN HEENT: normocephalic Respiratory/Chest: chest wall non-tender, lungs clear Cardiovascular: normal peripheral pulses, normal rate Abdomen: normal bowel sounds Microbiology Date/Time Source Procedure Growth Status 09/13/16 07:20 Blood Blood Culture - Preliminary NO GROWTH AFTER 24 HOURS Resulted 09/13/16 07:10 Blood Blood Culture - Preliminary NO GROWTH AFTER 24 HOURS Resulted Laboratory Tests 09/15/16 07:45: White Blood Count 3.4L, Red Blood Count 4.30, Hemoglobin 10.1L, Hematocrit 34.1L , Mean Corpuscular Volume 79L, Mean Corpuscular Hemoglobin 23.5L, Mean Corpuscular Hemoglobin Concent 29.6L, Red Cell Distribution Width 15.4H, Platelet Count 259, Mean Platelet Volume 6.7, Neutrophils (%) (Auto) , Lymphocytes (%) (Auto) , Monocytes (%) (Auto) , Eosinophils (%) (Auto) , Basophils (%) (Auto) , Neutrophils % (Manual) [Pending], Lymphocytes % (Manual) [Pending], Platelet Estimate [Pending], Platelet Morphology [Pending], Prothrombin Time 10.1, Prothromb Time International Ratio 1.0, Sodium Level 138 , Potassium Level 3.9, Chloride Level 99, Carbon Dioxide Level 23, Anion Gap 16H , Blood Urea Nitrogen 12, Creatinine 0.7, Estimat Glomerular Filtration Rate > 60, Glucose Level 203H, Calcium Level 9.5 Current Medications Medications (Trade) Dose Ordered Sig/Joey Route PRN Reason Start Time Stop Time Status Last Admin Dose Admin Ceftriaxone Sodium/Dextrose (Rocephin/D5W) 55 ml @ 110 mls/hr Q24H IVPB 09/12/16 16:00 09/19/16 15:59 09/14/16 17:05 Dextrose (Dextrose 50%) STAT PRN IV Hypoglycemia 09/12/16 00:45 10/12/16 00:44 Enoxaparin Sodium (Lovenox) 90 mg Q12HR SUBQ 09/12/16 14:00 10/12/16 13:59 09/15/16 08:46 HCTZ/Losartan Potassium 1 tab 1 tab DAILY ORAL 09/13/16 09:00 10/13/16 08:59 09/15/16 08:41 Hydromorphone HCl/ Sodium Chloride (Dilaudid/Sodium Chloride) 56 ml @ 224 mls/hr Q4H PRN IVPB Severe Pain (Pain Scale 7-10) 09/14/16 20:15 09/21/16 20:14 09/14/16 21:20 Lorazepam (Ativan 2mg/ml 1ml) 1 mg Q4H PRN IV For Anxiety 09/12/16 13:00 09/19/16 12:59 09/15/16 00:14 Metronidazole (Flagyl) 500 mg Q8HR ORAL 09/12/16 14:30 09/19/16 14:29 09/15/16 06:09 Morphine Sulfate 60 mg 60 mg EVERY 12 HOURS ORAL 09/14/16 21:00 09/21/16 20:59 09/14/16 22:03 Oxycodone HCl (Roxicodone) 30 mg Q4H PRN ORAL Moderate Pain (Pain Scale 4-6) 09/14/16 07:15 09/21/16 07:14 09/15/16 08:42 Warfarin Sodium (Coumadin per pharmacy) 1 ea DAILY PRN MISC Per rx protocol 09/12/16 12:30 10/12/16 12:29 Keyshawn Lantigua MD Sep 15, 2016 08:58
[2016-09-15] MEDS: MS Contin 30mg tab ORAL SCH ×2 (09:38→20:38)
--- NOTE | 2016-09-15 09:44 | Cardiology Report ---
APPROVED REPORT EXAM: Two-dimensional and M-mode echocardiogram with Doppler and color Doppler. INDICATION Chest Pain M-Mode DIMENSIONS IVSd0.7 (0.7-1.1cm)Left Atrium (MM)3.3 (1.6-4.0cm) LVDd5.4 (3.5-5.6cm)Aortic Root2.7 (2.0-3.7cm) PWd0.9 (0.7-1.1cm)Aortic Cusp Exc.2.0 (1.5-2.0cm) LVDs3.7 (2.5-4.0cm) PWs0.9 cm Technically difficult study due to poor acoustic windows. Normal left ventricular chamber size, systolic function and wall motion. Left ventricular ejection fraction estimated to be 55-60 %. No evidence of left ventricular hypertrophy. No evidence of pericardial fat or effusion. Moderate left atrial enlargement by 2D. Mild right atrial enlargement by 2D. Focal aortic valve sclerosis with adequate cusp excursion Thickened mitral valve leaflets with normal excursion. Mitral annulus and aortic root calcification. Pulmonic valve not well visualized. Normal tricuspid valve structure. IVC dilated at 2.4cm with minimal physiologic collapse. RA pressure of 20mmHg. A color flow and spectral Doppler study was performed and revealed: Trace aortic regurgitation. No mitral regurgitation. Normal left ventricular diastolic function. Moderate tricuspid regurgitation. Tricuspid systolic velocities suggests peak right ventricular systolic pressure of 38 mmHg Consistent with mild pulmonary hypertension.
[2016-09-15] MEDS ORDERED: 1/2 NS 1000ml IV ONE (09:50)
[2016-09-15] MEDS ORDERED: NS 275ml ONE (09:50)
[2016-09-15] MEDS ORDERED: Tubing IV Secondary IV ONE (09:50)
[2016-09-15 10:25] LABS: ANISOCYTOSIS 1+; BAND NEUTROPHILS % (MANUAL) 0 % (0-8); BASOPHILS % (MANUAL) 0 % (0-2); EOSINOPHILS % (MANUAL) 3 % (0-3); HYPOCHROMASIA 1+; LYMPHOCYTES % (MANUAL) 46 % (20-45); MICROCYTES 1+; NEUTROPHILS % (MANUAL) 43 % (45-75); PLATELET ESTIMATE ADEQUATE; PLATELET MORPHOLOGY NORMAL; TOTAL CELLS COUNTED 100
[2016-09-15 12:30] VITALS: BP 140/96
[2016-09-15] MEDS: HYDROmorphone 2 MG in NS 55ml IVPB PRN (12:32)
--- NOTE | 2016-09-15 12:35 | General Progress Note ---
Assessment/Plan Assessment/Plan Assessment/Recs: # Pulmonary emboli, is s/p IVC filter. Continue Coumadin for now, INR 2-3. Per the patient, she has received hypocoagulable workup in the past. # DVT history, status post IVC filter placement. On coumadin, tolerating high doses # Coagulopathy - continue Coumadin. Continue Lovenox. # Hypertension -is on blood pressure control. # S/P IVC filter # Chronic pain- continue pain management. # Requires outpatient followup for management of anticoagulation, has not tolerating eliquis or xarelto in the past # Appreciate consultation!! Subjective Constitutional: Reports: no symptoms HEENT: Reports: no symptoms Cardiovascular: Reports: no symptoms Respiratory: Reports: no symptoms Gastrointestinal/Abdominal: Reports: no symptoms Genitourinary: Reports: no symptoms Neurologic/Psychiatric: Reports: no symptoms Endocrine: Reports: no symptoms Hematologic/Lymphatic: Reports: anemia Allergies: Coded Allergies: CODEINE (Verified Allergy, Unknown, SWELLING, ITCHING, 12/06/09) IBUPROFEN (Verified Allergy, Unknown, SWELLING, ITCHING, 12/06/09) METOCLOPRAMIDE (Verified Allergy, Unknown, SWELLING, ITCHING, 12/06/09) MORPHINE (Verified Allergy, Unknown, SWELLING, ITCHING, 12/06/09) Subjective no fevers or chills or night sweats are noted, pt continues to c/o chest pain Objective Last 24 Hour Vital Signs Date Time Temp Pulse Resp B/P Pulse Ox O2 Delivery O2 Flow Rate FiO2 09/15/16 08:41 135/90 09/15/16 08:00 98.1 75 18 135/90 97 Room Air 09/15/16 04:00 64 09/15/16 04:00 97.2 71 16 139/93 98 Room Air 09/15/16 00:38 67 09/15/16 00:00 97.9 78 16 127/78 98 Room Air 09/14/16 20:00 97.9 74 16 135/83 98 Room Air 09/14/16 16:19 97.3 70 18 142/92 97 Room Air Intake and Output 09/14/16 09/15/16 19:00 07:00 Intake Total 240 ml 240 ml Balance 240 ml 240 ml Intake Oral 240 ml 240 ml # Voids 1 # Bowel Movements 1 Laboratory Tests 09/15/16 07:45: White Blood Count 3.4L, Red Blood Count 4.30, Hemoglobin 10.1L, Hematocrit 34.1L , Mean Corpuscular Volume 79L, Mean Corpuscular Hemoglobin 23.5L, Mean Corpuscular Hemoglobin Concent 29.6L, Red Cell Distribution Width 15.4H, Platelet Count 259, Mean Platelet Volume 6.7, Neutrophils (%) (Auto) , Lymphocytes (%) (Auto) , Monocytes (%) (Auto) , Eosinophils (%) (Auto) , Basophils (%) (Auto) , Differential Total Cells Counted 100, Neutrophils % ( Manual) 43L, Lymphocytes % (Manual) 46H, Monocytes % (Manual) 8, Eosinophils % ( Manual) 3, Basophils % (Manual) 0, Band Neutrophils 0, Platelet Estimate Adequate, Platelet Morphology Normal, Hypochromasia 1+, Anisocytosis 1+, Microcytosis 1+, Prothrombin Time 10.1, Prothromb Time International Ratio 1.0, Sodium Level 138, Potassium Level 3.9, Chloride Level 99, Carbon Dioxide Level 23, Anion Gap 16H, Blood Urea Nitrogen 12, Creatinine 0.7, Estimat Glomerular Filtration Rate > 60, Glucose Level 203H, Calcium Level 9.5 Height (Feet): 5 Height (Inches): 4.00 Weight (Pounds): 198 General Appearance: no apparent distress EENT: PERRL/EOMI Neck: non-tender Cardiovascular: normal peripheral pulses Respiratory/Chest: chest wall non-tender Abdomen: normal bowel sounds Extremities: normal range of motion Edema: no edema noted Leg (L), no edema noted Leg (R), no edema noted Pedal (L) , no edema noted Pedal (R) Neurologic: oriented x 3 Skin: warm/dry Matthew Mesa Sep 15, 2016 12:35
--- NOTE | 2016-09-15 12:50 | General Progress Note ---
Assessment/Plan Assessment/Plan (1) Chest pain (2) Pulmonary Embolism (3) Chronic Abdominal pain (4) Lumbago (5) Narcotic Dependency The patient will be continued on morphine extended release, oxycodone and the Dilaudid. The patient was discussed with Dr. Andrews and Dr. Andrews concurred. Subjective Date patient seen: Sep 15, 2016 Time patient seen: 12:00 - pm Allergies: Coded Allergies: CODEINE (Verified Allergy, Unknown, SWELLING, ITCHING, 12/06/09) IBUPROFEN (Verified Allergy, Unknown, SWELLING, ITCHING, 12/06/09) METOCLOPRAMIDE (Verified Allergy, Unknown, SWELLING, ITCHING, 12/06/09) MORPHINE (Verified Allergy, Unknown, SWELLING, ITCHING, 12/06/09) Subjective REVIEW OF SYSTEMS: Denies rash, fever, chills, sweating, dizziness, drowsiness, blurred vision, sore throat, or change in hearing or weight. No bowel or bladder incontinence. No dysuria. She is complaining of chest pain, abdominal pain, and low back pain. SUBJECTIVE: Pt is in bed in no acute distress pain is better tolerated reduced from a 7 to a 3/10. Objective Last 24 Hour Vital Signs Date Time Temp Pulse Resp B/P Pulse Ox O2 Delivery O2 Flow Rate FiO2 09/15/16 08:41 135/90 09/15/16 08:00 98.1 75 18 135/90 97 Room Air 09/15/16 04:00 64 09/15/16 04:00 97.2 71 16 139/93 98 Room Air 09/15/16 00:38 67 09/15/16 00:00 97.9 78 16 127/78 98 Room Air 09/14/16 20:00 97.9 74 16 135/83 98 Room Air 09/14/16 16:19 97.3 70 18 142/92 97 Room Air Intake and Output 09/14/16 09/15/16 19:00 07:00 Intake Total 240 ml 240 ml Balance 240 ml 240 ml Intake Oral 240 ml 240 ml # Voids 1 # Bowel Movements 1 Laboratory Tests 09/15/16 07:45: White Blood Count 3.4L, Red Blood Count 4.30, Hemoglobin 10.1L, Hematocrit 34.1L , Mean Corpuscular Volume 79L, Mean Corpuscular Hemoglobin 23.5L, Mean Corpuscular Hemoglobin Concent 29.6L, Red Cell Distribution Width 15.4H, Platelet Count 259, Mean Platelet Volume 6.7, Neutrophils (%) (Auto) , Lymphocytes (%) (Auto) , Monocytes (%) (Auto) , Eosinophils (%) (Auto) , Basophils (%) (Auto) , Differential Total Cells Counted 100, Neutrophils % ( Manual) 43L, Lymphocytes % (Manual) 46H, Monocytes % (Manual) 8, Eosinophils % ( Manual) 3, Basophils % (Manual) 0, Band Neutrophils 0, Platelet Estimate Adequate, Platelet Morphology Normal, Hypochromasia 1+, Anisocytosis 1+, Microcytosis 1+, Prothrombin Time 10.1, Prothromb Time International Ratio 1.0, Sodium Level 138, Potassium Level 3.9, Chloride Level 99, Carbon Dioxide Level 23, Anion Gap 16H, Blood Urea Nitrogen 12, Creatinine 0.7, Estimat Glomerular Filtration Rate > 60, Glucose Level 203H, Calcium Level 9.5 Height (Feet): 5 Height (Inches): 4.00 Weight (Pounds): 198 Objective HEENT: PERRLA. NECK: Range of motion is decreased in all directions. No tenderness. No adenopathy. LUNGS: Decreased breath sounds bilaterally. ABDOMEN: Obese with tenderness to palpation. BACK: Range of motion is decreased in flexion and extension with tenderness to paraspinal muscles. No tenderness to trapezius or rhomboid muscles. EXTREMITIES: No cyanosis. No clubbing. No edema. NEURO: No changes. TYRESE BEDOYA Sep 15, 2016 12:50
--- NOTE | 2016-09-15 14:31 | Infectious Diseases Prog Note ---
Assessment/Plan Problems: (1) Diarrhea Assessment & Plan: no stool was sent for culture , and C diff toxin, continue ceftriaxon with flagyl for now (2) Pulmonary embolism Assessment & Plan: on full anticoagulation, since she was not taking her Coumadin at home due to vomiting.continue coumadin, monitor INR Hematology is following (3) Chest pain Assessment & Plan: suspect due to pulmonary embolisms, on full anticoagulation , HEM/ONC is following , needs to rule out ACS, monitor troponin , cards is following (4) Vomiting Assessment & Plan: suspect diabetic gastroparesis , continue supportive care, consider GI consult, for EGD (5) S/P IVC filter Assessment & Plan: due to previous DVT Subjective Constitutional: Reports: no symptoms HEENT: Reports: no symptoms Respiratory: Reports: no symptoms Cardiovascular: Reports: no symptoms Gastrointestinal/Abdominal: Reports: bloating, nausea Genitourinary: Reports: no symptoms Neurologic: Reports: no symptoms Psychiatric: Reports: no symptoms Skin: Reports: no symptoms Allergies: Coded Allergies: CODEINE (Verified Allergy, Unknown, SWELLING, ITCHING, 12/06/09) IBUPROFEN (Verified Allergy, Unknown, SWELLING, ITCHING, 12/06/09) METOCLOPRAMIDE (Verified Allergy, Unknown, SWELLING, ITCHING, 12/06/09) MORPHINE (Verified Allergy, Unknown, SWELLING, ITCHING, 12/06/09) Objective Vital Signs Last 24 Hour Vital Signs Date Time Temp Pulse Resp B/P Pulse Ox O2 Delivery O2 Flow Rate FiO2 09/15/16 12:30 98.1 94 18 140/96 97 Room Air 09/15/16 08:41 135/90 09/15/16 08:00 98.1 75 18 135/90 97 Room Air 09/15/16 04:00 64 09/15/16 04:00 97.2 71 16 139/93 98 Room Air 09/15/16 00:38 67 09/15/16 00:00 97.9 78 16 127/78 98 Room Air 09/14/16 20:00 97.9 74 16 135/83 98 Room Air 09/14/16 16:19 97.3 70 18 142/92 97 Room Air Height (Feet): 5 Height (Inches): 4.00 Weight (Pounds): 198 General Appearance: WD/WN, no acute distress HEENT: normocephalic, atraumatic, anicteric, mucous membranes moist Respiratory/Chest: chest wall non-tender, lungs clear, normal breath sounds, no respiratory distress, no accessory muscle use Cardiovascular: normal peripheral pulses, normal rate, regular rhythm, no gallop/murmur Abdomen: normal bowel sounds, soft, non tender, no organomegaly, non distended , no mass Extremities: no cyanosis Skin: no rash, no lesions, no ulcers Microbiology Date/Time Source Procedure Growth Status 09/13/16 07:20 Blood Blood Culture - Preliminary NO GROWTH AFTER 24 HOURS Resulted 09/13/16 07:10 Blood Blood Culture - Preliminary NO GROWTH AFTER 24 HOURS Resulted Laboratory Tests Test 09/15/16 07:45 White Blood Count 3.4 K/UL (4.8-10.8) L Red Blood Count 4.30 M/UL (4.20-5.40) Hemoglobin 10.1 G/DL (12.0-16.0) L Hematocrit 34.1 % (37.0-47.0) L Mean Corpuscular Volume 79 FL (80-99) L Mean Corpuscular Hemoglobin 23.5 PG (27.0-31.0) L Mean Corpuscular Hemoglobin Concent 29.6 G/DL (32.0-36.0) L Red Cell Distribution Width 15.4 % (11.6-14.8) H Platelet Count 259 K/UL (150-450) Mean Platelet Volume 6.7 FL (6.5-10.1) Neutrophils (%) (Auto) % (45.0-75.0) Lymphocytes (%) (Auto) % (20.0-45.0) Monocytes (%) (Auto) % (1.0-10.0) Eosinophils (%) (Auto) % (0.0-3.0) Basophils (%) (Auto) % (0.0-2.0) Differential Total Cells Counted 100 Neutrophils % (Manual) 43 % (45-75) L Lymphocytes % (Manual) 46 % (20-45) H Monocytes % (Manual) 8 % (1-10) Eosinophils % (Manual) 3 % (0-3) Basophils % (Manual) 0 % (0-2) Band Neutrophils 0 % (0-8) Platelet Estimate Adequate Platelet Morphology Normal Hypochromasia 1+ Anisocytosis 1+ Microcytosis 1+ Prothrombin Time 10.1 SEC (9.30-11.50) Prothromb Time International Ratio 1.0 (0.9-1.1) Sodium Level 138 mEQ/L (135-145) Potassium Level 3.9 mEQ/L (3.4-4.9) Chloride Level 99 mEQ/L (98-107) Carbon Dioxide Level 23 mEQ/L (20-30) Anion Gap 16 (5-15) H Blood Urea Nitrogen 12 mg/dL (7-23) Creatinine 0.7 mg/dL (0.5-0.9) Estimat Glomerular Filtration Rate > 60 mL/min (>60) Glucose Level 203 mg/dL (74-106) H Calcium Level 9.5 mg/dL (8.6-10.2) Current Medications Medications (Trade) Dose Ordered Sig/Joey Route PRN Reason Start Time Stop Time Status Last Admin Dose Admin Ceftriaxone Sodium/Dextrose (Rocephin/D5W) 55 ml @ 110 mls/hr Q24H IVPB 09/12/16 16:00 09/19/16 15:59 09/14/16 17:05 Dextrose (Dextrose 50%) STAT PRN IV Hypoglycemia 09/12/16 00:45 10/12/16 00:44 Enoxaparin Sodium (Lovenox) 90 mg Q12HR SUBQ 09/12/16 14:00 10/12/16 13:59 09/15/16 08:46 HCTZ/Losartan Potassium 1 tab 1 tab DAILY ORAL 09/13/16 09:00 10/13/16 08:59 09/15/16 08:41 Hydromorphone HCl/ Sodium Chloride (Dilaudid/Sodium Chloride) 56 ml @ 224 mls/hr Q4H PRN IVPB Severe Pain (Pain Scale 7-10) 09/14/16 20:15 09/21/16 20:14 09/15/16 12:32 Lorazepam (Ativan 2mg/ml 1ml) 1 mg Q4H PRN IV For Anxiety 09/12/16 13:00 09/19/16 12:59 09/15/16 09:38 Metronidazole (Flagyl) 500 mg Q8HR ORAL 09/12/16 14:30 09/19/16 14:29 09/15/16 06:09 Morphine Sulfate 60 mg 60 mg EVERY 12 HOURS ORAL 09/14/16 21:00 09/21/16 20:59 09/15/16 09:38 Oxycodone HCl (Roxicodone) 30 mg Q4H PRN ORAL Moderate Pain (Pain Scale 4-6) 09/14/16 07:15 09/21/16 07:14 09/15/16 08:42 Warfarin Sodium (Coumadin per pharmacy) 1 ea DAILY PRN MISC Per rx protocol 09/12/16 12:30 10/12/16 12:29 Warfarin Sodium (Coumadin) 10 mg COUMADIN ONCE ORAL 09/15/16 17:00 09/15/16 17:01 Mateus Betancourt M.D. Sep 15, 2016 14:31
--- NOTE | 2016-09-15 14:48 | Cardiac Electrophysiology PN ---
Assessment/Plan Assessment/Plan 1. Chest pain. Atypical. Ruled out for myocardial infarction.? due to small right lower lobe pulmonary embolism.Continue Coumadin per pharmacy and Lovenox 90 mg subcutaneous b.i.d. 2. Hypertension. Continue losartan/ hydrochlorothiazide 50/12.5 mg daily 3. Hypothyroidism, on Synthroid. 4. Diabetes, on insulin. 5. Bradycardia. Off any TAYLOR or AVN rush. Resolving. 6. Diarrhea. On Flagyl DW RN Subjective Subjective Feeling better on Lovenox and Coumadin per pharmacy. Remained in SR/ Sinus ayesha 50-50s. Objective Last 24 Hour Vital Signs Date Time Temp Pulse Resp B/P Pulse Ox O2 Delivery O2 Flow Rate FiO2 09/15/16 12:30 98.1 94 18 140/96 97 Room Air 09/15/16 08:41 135/90 09/15/16 08:00 98.1 75 18 135/90 97 Room Air 09/15/16 04:00 64 09/15/16 04:00 97.2 71 16 139/93 98 Room Air 09/15/16 00:38 67 09/15/16 00:00 97.9 78 16 127/78 98 Room Air 09/14/16 20:00 97.9 74 16 135/83 98 Room Air 09/14/16 16:19 97.3 70 18 142/92 97 Room Air Intake and Output 09/14/16 09/15/16 19:00 07:00 Intake Total 240 ml 240 ml Balance 240 ml 240 ml Intake Oral 240 ml 240 ml # Voids 1 # Bowel Movements 1 Laboratory Tests Test 09/15/16 07:45 White Blood Count 3.4 K/UL (4.8-10.8) L Red Blood Count 4.30 M/UL (4.20-5.40) Hemoglobin 10.1 G/DL (12.0-16.0) L Hematocrit 34.1 % (37.0-47.0) L Mean Corpuscular Volume 79 FL (80-99) L Mean Corpuscular Hemoglobin 23.5 PG (27.0-31.0) L Mean Corpuscular Hemoglobin Concent 29.6 G/DL (32.0-36.0) L Red Cell Distribution Width 15.4 % (11.6-14.8) H Platelet Count 259 K/UL (150-450) Mean Platelet Volume 6.7 FL (6.5-10.1) Neutrophils (%) (Auto) % (45.0-75.0) Lymphocytes (%) (Auto) % (20.0-45.0) Monocytes (%) (Auto) % (1.0-10.0) Eosinophils (%) (Auto) % (0.0-3.0) Basophils (%) (Auto) % (0.0-2.0) Differential Total Cells Counted 100 Neutrophils % (Manual) 43 % (45-75) L Lymphocytes % (Manual) 46 % (20-45) H Monocytes % (Manual) 8 % (1-10) Eosinophils % (Manual) 3 % (0-3) Basophils % (Manual) 0 % (0-2) Band Neutrophils 0 % (0-8) Platelet Estimate Adequate Platelet Morphology Normal Hypochromasia 1+ Anisocytosis 1+ Microcytosis 1+ Prothrombin Time 10.1 SEC (9.30-11.50) Prothromb Time International Ratio 1.0 (0.9-1.1) Sodium Level 138 mEQ/L (135-145) Potassium Level 3.9 mEQ/L (3.4-4.9) Chloride Level 99 mEQ/L (98-107) Carbon Dioxide Level 23 mEQ/L (20-30) Anion Gap 16 (5-15) H Blood Urea Nitrogen 12 mg/dL (7-23) Creatinine 0.7 mg/dL (0.5-0.9) Estimat Glomerular Filtration Rate > 60 mL/min (>60) Glucose Level 203 mg/dL (74-106) H Calcium Level 9.5 mg/dL (8.6-10.2) Microbiology Date/Time Source Procedure Growth Status 09/13/16 07:20 Blood Blood Culture - Preliminary NO GROWTH AFTER 24 HOURS Resulted 09/13/16 07:10 Blood Blood Culture - Preliminary NO GROWTH AFTER 24 HOURS Resulted Objective HEAD AND NECK: No JVD LUNGS: Clear. CARDIOVASCULAR: Nl S1 and S2 with no gallop or murmur. ABDOMEN: Soft and nontender. EXTREMITIES: No pitting edema. ERIN MARTE Sep 15, 2016 14:48
--- NOTE | 2016-09-15 14:48 | Diagnostic Imaging Report ---
Indications: Low back pain. Technique: 5 views of the lumbar spine Findings: Comparison: CT thorax 09/11/16; CT abdomen pelvis 05/10/11 2 mm anterior subluxation of L4 on L5. No associated pars intra-articular is defect detected. Alignment is intact. No fracture, lytic destruction, or other acute changes are demonstrated. 12th ribs are absent. Intervertebral disc spaces are normal in height. Small osteophytes at the margins of L2-3 and L3-4 disc spaces. Facet joints diffusely sclerotic and hypertrophied. Interval placement of filter in the infrarenal inferior vena cava. Intrauterine device remains in place within the pelvis. Upper abdominal surgical clips again noted. IMPRESSION: No evidence of acute abnormality of the lumbar spine Degenerative spondylosis manifesting primarily as facet arthropathy. Minimal degenerative disc disease. L4-5 grade 1 anterior spondylolisthesis, likely chronic degenerative in nature. Interval IVC filter placement Other stable chronic changes as described
[2016-09-15 15:49] VITALS: BP 130/87
[2016-09-15] MEDS: cefTRIAXone 1 GM in D5W 55 ML IVPB SCH (16:01)
[2016-09-15] MEDS ORDERED: Warfarin Sodium 10mg ORAL ONE (17:00)
[2016-09-15 20:00] VITALS: BP 149/98
--- NOTE | 2016-09-15 23:48 | Nephrology Progress Note ---
Objective Objective Last 24 Hour Vital Signs Date Time Temp Pulse Resp B/P Pulse Ox O2 Delivery O2 Flow Rate FiO2 09/15/16 20:00 95 09/15/16 20:00 98.2 67 18 149/98 100 Room Air 09/15/16 15:49 97.2 79 20 130/87 92 Room Air 09/15/16 12:30 98.1 94 18 140/96 97 Room Air 09/15/16 08:41 135/90 09/15/16 08:00 98.1 75 18 135/90 97 Room Air 09/15/16 04:00 64 09/15/16 04:00 97.2 71 16 139/93 98 Room Air 09/15/16 00:38 67 09/15/16 00:00 97.9 78 16 127/78 98 Room Air Intake and Output 09/14/16 09/15/16 19:00 07:00 Intake Total 240 ml 240 ml Balance 240 ml 240 ml Intake Oral 240 ml 240 ml # Voids 1 # Bowel Movements 1 Laboratory Tests 09/15/16 07:45: White Blood Count 3.4L, Red Blood Count 4.30, Hemoglobin 10.1L, Hematocrit 34.1L , Mean Corpuscular Volume 79L, Mean Corpuscular Hemoglobin 23.5L, Mean Corpuscular Hemoglobin Concent 29.6L, Red Cell Distribution Width 15.4H, Platelet Count 259, Mean Platelet Volume 6.7, Neutrophils (%) (Auto) , Lymphocytes (%) (Auto) , Monocytes (%) (Auto) , Eosinophils (%) (Auto) , Basophils (%) (Auto) , Differential Total Cells Counted 100, Neutrophils % ( Manual) 43L, Lymphocytes % (Manual) 46H, Monocytes % (Manual) 8, Eosinophils % ( Manual) 3, Basophils % (Manual) 0, Band Neutrophils 0, Platelet Estimate Adequate, Platelet Morphology Normal, Hypochromasia 1+, Anisocytosis 1+, Microcytosis 1+, Prothrombin Time 10.1, Prothromb Time International Ratio 1.0, Sodium Level 138, Potassium Level 3.9, Chloride Level 99, Carbon Dioxide Level 23, Anion Gap 16H, Blood Urea Nitrogen 12, Creatinine 0.7, Estimat Glomerular Filtration Rate > 60, Glucose Level 203H, Calcium Level 9.5 Height (Feet): 5 Height (Inches): 4.00 Weight (Pounds): 198 LAUREN FELIX Sep 15, 2016 23:48
[2016-09-16] VITALS (7 sets, daily range): BP systolic 102–139; BP diastolic 65–87
[2016-09-16] MEDS: oxyCODONE 15mg IR tab ORAL PRN ×4 (03:50→20:40)
[2016-09-16] MEDS: metroNIDAZOLE 500mg tab ORAL SCH ×2 (05:24→13:38)
[2016-09-16 08:24] LABS: PROTHROMBIN TIME 10.4 SEC (9.30-11.50)
[2016-09-16] MEDS: Hyzaar 12.5mg/50mg tab ORAL SCH (08:53)
[2016-09-16] MEDS: Enoxaparin Sodium 300mg/3ml vial SUBQ SCH ×2 (08:53→20:52)
[2016-09-16] MEDS: MS Contin 30mg tab ORAL SCH ×2 (08:54→20:40)
[2016-09-16] MEDS: LORazepam Inj 2mg/ml 1ml IV PRN (08:55)
--- NOTE | 2016-09-16 09:20 | General Progress Note ---
Assessment/Plan Assessment/Plan (1) Chest pain (2) Pulmonary Embolism (3) Chronic Abdominal pain (4) Lumbago (5) Narcotic Dependency (6) Lumbar DDD (7) Lumbar Spondylosis The patient will be continued on morphine extended release, oxycodone and the Dilaudid. Pt will f/u with Dr. Davis for opioid RX as outpt. The patient was discussed with Dr. Andrews and Dr. Andrews concurred. Subjective Date patient seen: Sep 16, 2016 Time patient seen: 08:30 - am Allergies: Coded Allergies: CODEINE (Verified Allergy, Unknown, SWELLING, ITCHING, 12/06/09) IBUPROFEN (Verified Allergy, Unknown, SWELLING, ITCHING, 12/06/09) METOCLOPRAMIDE (Verified Allergy, Unknown, SWELLING, ITCHING, 12/06/09) MORPHINE (Verified Allergy, Unknown, SWELLING, ITCHING, 12/06/09) Subjective REVIEW OF SYSTEMS: Denies rash, fever, chills, sweating, dizziness, drowsiness, blurred vision, sore throat, or change in hearing or weight. No bowel or bladder incontinence. No dysuria. She is complaining of chest pain, abdominal pain, and low back pain. SUBJECTIVE: Pain has been stable and tolerated well on the medication regimen. She is receiving the Morphine ER, Dilaudid and Oxycodone. Xray was reviewed with pt. Objective Last 24 Hour Vital Signs Date Time Temp Pulse Resp B/P Pulse Ox O2 Delivery O2 Flow Rate FiO2 09/16/16 08:53 113/65 09/16/16 08:10 97.7 82 18 113/65 98 Room Air 09/16/16 04:03 97.8 80 18 127/73 98 Room Air 09/16/16 04:00 61 09/16/16 00:16 98.6 66 19 139/87 95 Room Air 09/16/16 00:00 94 09/15/16 20:00 95 09/15/16 20:00 98.2 67 18 149/98 100 Room Air 09/15/16 15:49 97.2 79 20 130/87 92 Room Air 09/15/16 12:30 98.1 94 18 140/96 97 Room Air Intake and Output 09/15/16 09/16/16 19:00 07:00 Intake Total 350 ml Balance 350 ml Intake Oral 250 ml Other 100 ml # Voids 4 2 Laboratory Tests 09/16/16 06:15: Prothrombin Time 10.4, Prothromb Time International Ratio 1.0 Height (Feet): 5 Height (Inches): 4.00 Weight (Pounds): 198 Objective HEENT: PERRLA. NECK: Range of motion is decreased in all directions. No tenderness. No adenopathy. LUNGS: Decreased breath sounds bilaterally. ABDOMEN: Obese with tenderness to palpation. BACK: Range of motion is decreased in flexion and extension with tenderness to paraspinal muscles. No tenderness to trapezius or rhomboid muscles. EXTREMITIES: No cyanosis. No clubbing. No edema. NEURO: No changes. Procedure: XRAY L Spine Min 4v Findings: 2 mm anterior subluxation of L4 on L5. No associated pars intra-articular is defect detected. Alignment is intact. No fracture, lytic destruction, or other acute changes are demonstrated. 12th ribs are absent. Intervertebral disc spaces are normal in height. Small osteophytes at the margins of L2-3 and L3-4 disc spaces. Facet joints diffusely sclerotic and hypertrophied. Interval placement of filter in the infrarenal inferior vena cava. Intrauterine device remains in place within the pelvis. Upper abdominal surgical clips again noted. IMPRESSION: No evidence of acute abnormality of the lumbar spine Degenerative spondylosis manifesting primarily as facet arthropathy. Minimal degenerative disc disease. L4-5 grade 1 anterior spondylolisthesis, likely chronic degenerative in nature. Interval IVC filter placement Other stable chronic changes as described TYRESE BEDOYA Sep 16, 2016 09:20
--- NOTE | 2016-09-16 14:21 | Cardiac Electrophysiology PN ---
Assessment/Plan Assessment/Plan 1. Atypical Chest pain. Ruled out for myocardial infarction.? due to small right lower lobe pulmonary embolism.Continue Coumadin per pharmacy and Lovenox 90 mg subcutaneous b.i.d. 2. Hypertension. Continue losartan/ hydrochlorothiazide 50/12.5 mg daily 3. Hypothyroidism, on Synthroid. 4. Diabetes, on insulin. 5. Bradycardia. Off any TAYLOR or AVN rush. Resolved. 6. Diarrhea. On Flagyl ABIMAEL RN DC tele Subjective Subjective No events overnight. On Lovenox and Coumadin per pharmacy. Remained in SR. Objective Last 24 Hour Vital Signs Date Time Temp Pulse Resp B/P Pulse Ox O2 Delivery O2 Flow Rate FiO2 09/16/16 12:11 98.1 81 18 139/86 99 Room Air 09/16/16 12:00 76 09/16/16 08:53 113/65 09/16/16 08:10 97.7 82 18 113/65 98 Room Air 09/16/16 08:00 62 09/16/16 04:03 97.8 80 18 127/73 98 Room Air 09/16/16 04:00 61 09/16/16 00:16 98.6 66 19 139/87 95 Room Air 09/16/16 00:00 94 09/15/16 20:00 95 09/15/16 20:00 98.2 67 18 149/98 100 Room Air 09/15/16 15:49 97.2 79 20 130/87 92 Room Air Intake and Output 09/15/16 09/16/16 19:00 07:00 Intake Total 350 ml Balance 350 ml Intake Oral 250 ml Other 100 ml # Voids 4 2 Laboratory Tests Test 09/16/16 06:15 Prothrombin Time 10.4 SEC (9.30-11.50) Prothromb Time International Ratio 1.0 (0.9-1.1) Objective HEAD AND NECK: No JVD LUNGS: Clear. CARDIOVASCULAR: Nl S1 and S2 with no gallop or murmur. ABDOMEN: Soft and nontender. EXTREMITIES: No pitting edema. ERIN MARTE Sep 16, 2016 14:21
--- NOTE | 2016-09-16 15:26 | Infectious Diseases Prog Note ---
Assessment/Plan Problems: (1) Diarrhea Assessment & Plan: no stool was sent for culture , and C diff toxin, improved, will D/C ceftriaxon and flagyl for now , and monitor off antibiotics (2) Pulmonary embolism Assessment & Plan: on full anticoagulation, since she was not taking her Coumadin at home due to vomiting.continue coumadin, monitor INR Hematology is following (3) Chest pain Assessment & Plan: suspect due to pulmonary embolisms, on full anticoagulation , HEM/ONC is following , needs to rule out ACS, monitor troponin , cards is following (4) Vomiting Assessment & Plan: suspect diabetic gastroparesis , continue supportive care, consider GI consult, for EGD (5) S/P IVC filter Assessment & Plan: due to previous DVT Subjective Constitutional: Reports: no symptoms HEENT: Reports: no symptoms Respiratory: Reports: no symptoms Breasts: Reports: no symptoms Cardiovascular: Reports: no symptoms Gastrointestinal/Abdominal: Reports: bloating, diarrhea, nausea Neurologic: Reports: no symptoms Psychiatric: Reports: no symptoms Skin: Reports: no symptoms Allergies: Coded Allergies: CODEINE (Verified Allergy, Unknown, SWELLING, ITCHING, 12/06/09) IBUPROFEN (Verified Allergy, Unknown, SWELLING, ITCHING, 12/06/09) METOCLOPRAMIDE (Verified Allergy, Unknown, SWELLING, ITCHING, 12/06/09) MORPHINE (Verified Allergy, Unknown, SWELLING, ITCHING, 12/06/09) Objective Vital Signs Last 24 Hour Vital Signs Date Time Temp Pulse Resp B/P Pulse Ox O2 Delivery O2 Flow Rate FiO2 09/16/16 12:11 98.1 81 18 139/86 99 Room Air 09/16/16 12:00 76 09/16/16 08:53 113/65 09/16/16 08:10 97.7 82 18 113/65 98 Room Air 09/16/16 08:00 62 09/16/16 04:03 97.8 80 18 127/73 98 Room Air 09/16/16 04:00 61 09/16/16 00:16 98.6 66 19 139/87 95 Room Air 09/16/16 00:00 94 09/15/16 20:00 95 09/15/16 20:00 98.2 67 18 149/98 100 Room Air 09/15/16 15:49 97.2 79 20 130/87 92 Room Air Height (Feet): 5 Height (Inches): 4.00 Weight (Pounds): 198 General Appearance: WD/WN, no acute distress HEENT: normocephalic, atraumatic, anicteric, mucous membranes moist Respiratory/Chest: chest wall non-tender, lungs clear, normal breath sounds, no respiratory distress, no accessory muscle use Cardiovascular: normal peripheral pulses, normal rate, regular rhythm, no gallop/murmur, no JVD Abdomen: normal bowel sounds, soft, non tender, no organomegaly, non distended , no mass Extremities: no cyanosis, no clubbing Skin: no rash, no lesions Laboratory Tests Test 09/16/16 06:15 Prothrombin Time 10.4 SEC (9.30-11.50) Prothromb Time International Ratio 1.0 (0.9-1.1) Current Medications Medications (Trade) Dose Ordered Sig/Joey Route PRN Reason Start Time Stop Time Status Last Admin Dose Admin Ceftriaxone Sodium/Dextrose (Rocephin/D5W) 55 ml @ 110 mls/hr Q24H IVPB 09/12/16 16:00 09/19/16 15:59 09/15/16 16:01 Dextrose (Dextrose 50%) STAT PRN IV Hypoglycemia 09/12/16 00:45 10/12/16 00:44 Enoxaparin Sodium (Lovenox) 90 mg Q12HR SUBQ 09/12/16 14:00 10/12/16 13:59 09/16/16 08:53 HCTZ/Losartan Potassium 1 tab 1 tab DAILY ORAL 09/13/16 09:00 10/13/16 08:59 09/16/16 08:53 Hydromorphone HCl/ Sodium Chloride (Dilaudid/Sodium Chloride) 56 ml @ 224 mls/hr Q4H PRN IVPB Severe Pain (Pain Scale 7-10) 09/14/16 20:15 09/21/16 20:14 09/15/16 12:32 Lorazepam (Ativan 2mg/ml 1ml) 1 mg Q4H PRN IV For Anxiety 09/12/16 13:00 09/19/16 12:59 09/16/16 08:55 Metronidazole (Flagyl) 500 mg Q8HR ORAL 09/12/16 14:30 09/19/16 14:29 09/16/16 13:38 Morphine Sulfate 60 mg 60 mg EVERY 12 HOURS ORAL 09/14/16 21:00 09/21/16 20:59 09/16/16 08:54 Oxycodone HCl (Roxicodone) 30 mg Q4H PRN ORAL Moderate Pain (Pain Scale 4-6) 09/14/16 07:15 09/21/16 07:14 09/16/16 14:23 Warfarin Sodium (Coumadin per pharmacy) 1 ea DAILY PRN MISC Per rx protocol 09/12/16 12:30 10/12/16 12:29 Warfarin Sodium/ Warfarin Sodium (Coumadin/ Coumadin) 12.5 mg COUMADIN ONCE ORAL 09/16/16 17:00 09/16/16 17:01 Mateus Betancourt M.D. Sep 16, 2016 15:26
--- NOTE | 2016-09-16 15:45 | General Progress Note ---
Assessment/Plan Assessment/Plan Assessment/Recs: # Pulmonary emboli, is s/p IVC filter. Continue Coumadin for now, INR goal 2-3. Per the patient, she has received hypocoagulable workup in the past. # DVT history, status post IVC filter placement. On coumadin, tolerating high doses. # Coagulopathy - continue Coumadin. Continue Lovenox. # Hypertension -is on blood pressure control. # S/P IVC filter # Chronic pain- continue pain management. # Requires outpatient followup for management of anticoagulation, has not tolerated eliquis or xarelto in the past # Appreciate consultation!! Subjective Constitutional: Reports: no symptoms HEENT: Reports: no symptoms Cardiovascular: Reports: no symptoms Respiratory: Reports: no symptoms Genitourinary: Reports: no symptoms Neurologic/Psychiatric: Reports: no symptoms Endocrine: Reports: no symptoms Hematologic/Lymphatic: Reports: anemia Allergies: Coded Allergies: CODEINE (Verified Allergy, Unknown, SWELLING, ITCHING, 12/06/09) IBUPROFEN (Verified Allergy, Unknown, SWELLING, ITCHING, 12/06/09) METOCLOPRAMIDE (Verified Allergy, Unknown, SWELLING, ITCHING, 12/06/09) MORPHINE (Verified Allergy, Unknown, SWELLING, ITCHING, 12/06/09) Subjective afebrile, not bleeding, pt continues to c/o chest pain, abd pain, lower back pain better controlled with pain meds Objective Last 24 Hour Vital Signs Date Time Temp Pulse Resp B/P Pulse Ox O2 Delivery O2 Flow Rate FiO2 09/16/16 12:11 98.1 81 18 139/86 99 Room Air 09/16/16 12:00 76 09/16/16 08:53 113/65 09/16/16 08:10 97.7 82 18 113/65 98 Room Air 09/16/16 08:00 62 09/16/16 04:03 97.8 80 18 127/73 98 Room Air 09/16/16 04:00 61 09/16/16 00:16 98.6 66 19 139/87 95 Room Air 09/16/16 00:00 94 09/15/16 20:00 95 09/15/16 20:00 98.2 67 18 149/98 100 Room Air 09/15/16 15:49 97.2 79 20 130/87 92 Room Air Intake and Output 09/15/16 09/16/16 19:00 07:00 Intake Total 350 ml Balance 350 ml Intake Oral 250 ml Other 100 ml # Voids 4 2 Laboratory Tests 09/16/16 06:15: Prothrombin Time 10.4, Prothromb Time International Ratio 1.0 Height (Feet): 5 Height (Inches): 4.00 Weight (Pounds): 198 General Appearance: WD/WN EENT: normal ENT inspection Cardiovascular: normal peripheral pulses Respiratory/Chest: chest wall non-tender Extremities: normal range of motion Edema: no edema noted Leg (L), no edema noted Leg (R), no edema noted Pedal (L) , no edema noted Pedal (R), no edema noted Generalized Neurologic: oriented x 3 Skin: warm/dry Matthew Mesa Sep 16, 2016 15:45
[2016-09-16] MEDS ORDERED: Warfarin Sod 10 MG, Warfarin Sod 2.5 MG ORAL ONE ×2 (17:00)
[2016-09-16] MEDS ORDERED: HYDROmorphone 2 MG in NS 55 ML IVPB PRN (20:15)
[2016-09-16] MEDS ORDERED: LORazepam Inj 2mg/ml 1ml IV PRN (21:00)
--- NOTE | 2016-09-16 22:10 | Nephrology Progress Note ---
Assessment/Plan Problem List: (1) Pulmonary embolism (2) Chest pain (3) Vomiting (4) Diarrhea (5) Chronic pain disorder (6) S/P IVC filter Plan Continue coumadin INR goal 2-3 Continue lovenox Continue pain management Monitor H&H Monitor INR Subjective Constitutional: Reports: weakness HEENT: Denies: blurred vision, double vision, ear discharge, ear pain, eye pain , mouth pain, mouth swelling, no symptoms, nose congestion, nose pain, other, tearing, throat pain, throat swelling Genitourinary: Denies: burning, discharge, flank pain, frequency, hematuria, incontinence, no symptoms, other, pain, urgency Neurologic/Psychiatric: Denies: anxiety, depressed, emotional problems, headache, no symptoms, numbness, other, paresthesia, pre-existing deficit, seizure, tingling, tremors, weakness Objective Objective Last 24 Hour Vital Signs Date Time Temp Pulse Resp B/P Pulse Ox O2 Delivery O2 Flow Rate FiO2 09/16/16 20:00 98.1 75 20 120/78 94 Room Air 09/16/16 18:00 98.7 77 18 129/75 97 Room Air 09/16/16 16:15 98.4 83 18 102/67 99 Room Air 09/16/16 16:00 83 09/16/16 12:11 98.1 81 18 139/86 99 Room Air 09/16/16 12:00 76 09/16/16 08:53 113/65 09/16/16 08:10 97.7 82 18 113/65 98 Room Air 09/16/16 08:00 62 09/16/16 04:03 97.8 80 18 127/73 98 Room Air 09/16/16 04:00 61 09/16/16 00:16 98.6 66 19 139/87 95 Room Air 09/16/16 00:00 94 Intake and Output 09/15/16 09/16/16 19:00 07:00 Intake Total 350 ml Balance 350 ml Intake Oral 250 ml Other 100 ml # Voids 4 2 Laboratory Tests 09/16/16 06:15: Prothrombin Time 10.4, Prothromb Time International Ratio 1.0 Height (Feet): 5 Height (Inches): 4.00 Weight (Pounds): 198 General Appearance: no apparent distress EENT: normal ENT inspection Neck: non-tender, normal alignment, supple Cardiovascular: normal peripheral pulses, normal rate, regular rhythm, no JVD Respiratory/Chest: normal breath sounds, no respiratory distress Abdomen: normal bowel sounds, non tender, soft, no organomegaly Extremities: normal range of motion, non-tender, normal inspection, no calf tenderness Neurologic: alert, oriented x 3, responsive, normal mood/affect LAUREN FELIX Sep 16, 2016 22:10
[2016-09-17] VITALS: BP 115/66
[2016-09-17] MEDS: oxyCODONE 15mg IR tab ORAL PRN ×4 (03:44→22:36)
[2016-09-17 04:13] VITALS: BP 128/66
[2016-09-17 06:58] LABS: EOSINOPHILS % (AUTO) 4.2 % (0.0-3.0); LYMPHOCYTES % (AUTO) 38.9 % (20.0-45.0); MEAN CORPUSCULAR HEMOGLOBIN 24.3 PG (27.0-31.0); MEAN CORPUSCULAR HGB CONC 30.6 G/DL (32.0-36.0); MEAN CORPUSCULAR VOLUME 79 FL (80-99); MEAN PLATELET VOLUME 7.2 FL (6.5-10.1); MONOCYTES % (AUTO) 7.3 % (1.0-10.0); NEUTROPHILS % (AUTO) 47.6 % (45.0-75.0); PLATELET COUNT 274 K/UL (150-450); RED BLOOD COUNT 4.15 M/UL (4.20-5.40); RED CELL DISTRIBUTION WIDTH 15.7 % (11.6-14.8)
[2016-09-17 07:07] LABS: PROTHROMBIN TIME 10.4 SEC (9.30-11.50)
[2016-09-17 07:23] LABS: ANION GAP 14 (5-15); CALCIUM 9.2 mg/dL (8.6-10.2); CARBON DIOXIDE 26 mEQ/L (20-30); CHLORIDE 94 mEQ/L (98-107); CREATININE 0.8 mg/dL (0.5-0.9); GLOMERULAR FILTRATION RATE > 60 mL/min (>60); HEMOLYSIS 3; POTASSIUM 4.1 mEQ/L (3.4-4.9); SODIUM 134 mEQ/L (135-145)
[2016-09-17 08:00] VITALS: BP 104/59
[2016-09-17] MEDS: Hyzaar 12.5mg/50mg tab ORAL SCH (08:58)
[2016-09-17] MEDS: MS Contin 30mg tab ORAL SCH ×2 (08:59→21:13)
[2016-09-17] MEDS: Enoxaparin Sodium 300mg/3ml vial SUBQ SCH ×2 (09:03→21:17)
[2016-09-17 12:00] VITALS: BP 104/71
--- NOTE | 2016-09-17 13:38 | Consultation ---
DATE OF CONSULTATION: 09/17/2016 Time Of Evaluation: 10:00 a.m. CONSULTING PHYSICIAN: Juan Luis Lamas D.O. CHIEF COMPLAINT: ACS, chest pain and shortness of breath. BRIEF HISTORY: This is a 46-year-old female from home presents to [facility] with above-mentioned diagnosis, admitted for treatment. Currently, calm in bed, no complaints. No chest pain or short of breath. No nausea or vomiting. PAST MEDICAL HISTORY: ACS, diabetes and hypertension. PAST SURGICAL HISTORY: , gastric bypass, gallbladder, and IVC filter. MEDICATIONS: Include Coumadin, Hyzaar, Lovenox, Ativan, MS Contin, hydromorphone, and oxycodone. ALLERGIES: Reglan. SOCIAL HISTORY: No smoking. No alcohol. No intravenous drug use. FAMILY HISTORY: Noncontributory. PHYSICAL EXAMINATION: GENERAL: Calm in bed. Oriented x3. No acute distress. VITAL SIGNS: Show temperature is 97.0 degrees, pulse 59, respirations 17, and blood pressure 104/59. CARDIOVASCULAR: No murmur. LUNGS: Distant and clear. ABDOMEN: Bowel sounds positive. Nontender and nondistended. EXTREMITIES: No cyanosis, clubbing, or edema. NEUROLOGIC: Cranial nerves II through XII are grossly intact. Deep tendon reflexes 2+. Muscle strength 5/5. LABORATORY AND DIAGNOSTIC DATA: Hemoglobin 10.1, otherwise CBC is normal. BMP shows sodium 134, chloride 94, and glucose 214. INR is 1.0. ASSESSMENT: 1. Acute coronary syndrome. 2. Diabetes. 3. Hypertension. 4. Anemia. PLAN: 1. Continue premeds. 2. Cardiology evaluation. 3. Blood pressure. 4. Blood sugar. 5. Pain control. 6. Dietary follow up. 7. CBC and BMP in the morning. 8. OT, PT, and dietary evaluation. Juan Luis Lamas D.O. DR: Jasmin JOB#: [id number] CC:
[2016-09-17 16:00] VITALS: BP 113/42
[2016-09-17] MEDS ORDERED: Warfarin Sodium 5mg ORAL SCH (17:00)
--- NOTE | 2016-09-17 17:09 | Cardiac Electrophysiology PN ---
Assessment/Plan Assessment/Plan 1. Atypical Chest pain. Ruled out for myocardial infarction.? due to small right lower lobe pulmonary embolism. 2. PE. Continue Coumadin per pharmacy and Lovenox 90 mg subcutaneous b.i.d. INR still 1.0 ! 3. Hypertension. Continue losartan/ hydrochlorothiazide 50/12.5 mg daily 4. Hypothyroidism, on Synthroid. 5. Diabetes, on insulin. 6. Bradycardia. Off any TAYLOR or AVN rush. Resolved. 7. Diarrhea. On Flagyl DW RN Subjective Subjective No events overnight. On Lovenox and Coumadin per pharmacy. Transferred to nonmonitored bed. Objective Last 24 Hour Vital Signs Date Time Temp Pulse Resp B/P Pulse Ox O2 Delivery O2 Flow Rate FiO2 09/17/16 16:00 94.9 68 16 113/42 95 Room Air 09/17/16 12:00 97.9 80 18 104/71 96 Room Air 09/17/16 09:58 97.7 09/17/16 08:58 104/59 09/17/16 08:00 97.7 59 17 104/59 99 Room Air 09/17/16 04:13 97.5 74 20 128/66 94 Room Air 09/17/16 00:00 98.1 64 19 115/66 99 Room Air 09/16/16 20:00 98.1 75 20 120/78 94 Room Air 09/16/16 18:00 98.7 77 18 129/75 97 Room Air Intake and Output 09/16/16 09/17/16 19:00 07:00 Intake Total 990 ml 720 ml Balance 990 ml 720 ml Intake Oral 990 ml 720 ml # Voids 4 2 Laboratory Tests Test 09/17/16 05:25 White Blood Count 5.0 K/UL (4.8-10.8) Red Blood Count 4.15 M/UL (4.20-5.40) L Hemoglobin 10.1 G/DL (12.0-16.0) L Hematocrit 32.9 % (37.0-47.0) L Mean Corpuscular Volume 79 FL (80-99) L Mean Corpuscular Hemoglobin 24.3 PG (27.0-31.0) L Mean Corpuscular Hemoglobin Concent 30.6 G/DL (32.0-36.0) L Red Cell Distribution Width 15.7 % (11.6-14.8) H Platelet Count 274 K/UL (150-450) Mean Platelet Volume 7.2 FL (6.5-10.1) Neutrophils (%) (Auto) 47.6 % (45.0-75.0) Lymphocytes (%) (Auto) 38.9 % (20.0-45.0) Monocytes (%) (Auto) 7.3 % (1.0-10.0) Eosinophils (%) (Auto) 4.2 % (0.0-3.0) H Basophils (%) (Auto) 2.0 % (0.0-2.0) Prothrombin Time 10.4 SEC (9.30-11.50) Prothromb Time International Ratio 1.0 (0.9-1.1) Sodium Level 134 mEQ/L (135-145) L Potassium Level 4.1 mEQ/L (3.4-4.9) Chloride Level 94 mEQ/L (98-107) L Carbon Dioxide Level 26 mEQ/L (20-30) Anion Gap 14 (5-15) Blood Urea Nitrogen 10 mg/dL (7-23) Creatinine 0.8 mg/dL (0.5-0.9) Estimat Glomerular Filtration Rate > 60 mL/min (>60) Glucose Level 214 mg/dL (74-106) H Calcium Level 9.2 mg/dL (8.6-10.2) Objective HEAD AND NECK: No JVD LUNGS: Clear. CARDIOVASCULAR: Nl S1 and S2 with no gallop or murmur. ABDOMEN: Soft and nontender. EXTREMITIES: No pitting edema. ERIN MARTE Sep 17, 2016 17:09
[2016-09-17] MEDS: Warfarin Sodium 10mg ORAL SCH (17:34)
--- NOTE | 2016-09-17 18:13 | General Progress Note ---
Assessment/Plan Assessment/Plan Assessment/Recs: # Pulmonary emboli, is s/p IVC filter. Continue Coumadin for now, INR goal 2-3. Per the patient, she has received hypocoagulable workup in the past. # DVT history, status post IVC filter placement. On coumadin, tolerating high doses. # Coagulopathy - continue Coumadin. Continue Lovenox. # Hypertension -is on blood pressure control. # S/P IVC filter # Chronic pain- continue pain management. # Requires outpatient followup for management of anticoagulation, has not tolerated eliquis or xarelto in the past # Appreciate consultation!! Subjective Constitutional: Reports: no symptoms HEENT: Reports: no symptoms Cardiovascular: Reports: no symptoms Respiratory: Reports: no symptoms Gastrointestinal/Abdominal: Reports: no symptoms Genitourinary: Reports: no symptoms Neurologic/Psychiatric: Reports: no symptoms Endocrine: Reports: no symptoms Hematologic/Lymphatic: Reports: anemia Allergies: Coded Allergies: CODEINE (Verified Allergy, Unknown, SWELLING, ITCHING, 12/06/09) IBUPROFEN (Verified Allergy, Unknown, SWELLING, ITCHING, 12/06/09) METOCLOPRAMIDE (Verified Allergy, Unknown, SWELLING, ITCHING, 12/06/09) MORPHINE (Verified Allergy, Unknown, SWELLING, ITCHING, 12/06/09) Subjective pt calm, pain better controlled with pain meds Objective Last 24 Hour Vital Signs Date Time Temp Pulse Resp B/P Pulse Ox O2 Delivery O2 Flow Rate FiO2 09/17/16 16:00 94.9 68 16 113/42 95 Room Air 09/17/16 12:00 97.9 80 18 104/71 96 Room Air 09/17/16 09:58 97.7 09/17/16 08:58 104/59 09/17/16 08:00 97.7 59 17 104/59 99 Room Air 09/17/16 04:13 97.5 74 20 128/66 94 Room Air 09/17/16 00:00 98.1 64 19 115/66 99 Room Air 09/16/16 20:00 98.1 75 20 120/78 94 Room Air Intake and Output 09/16/16 09/17/16 19:00 07:00 Intake Total 990 ml 720 ml Balance 990 ml 720 ml Intake Oral 990 ml 720 ml # Voids 4 2 Laboratory Tests 09/17/16 05:25: White Blood Count 5.0, Red Blood Count 4.15L, Hemoglobin 10.1L, Hematocrit 32.9L , Mean Corpuscular Volume 79L, Mean Corpuscular Hemoglobin 24.3L, Mean Corpuscular Hemoglobin Concent 30.6L, Red Cell Distribution Width 15.7H, Platelet Count 274, Mean Platelet Volume 7.2, Neutrophils (%) (Auto) 47.6, Lymphocytes (%) (Auto) 38.9, Monocytes (%) (Auto) 7.3, Eosinophils (%) (Auto) 4.2H, Basophils (%) (Auto) 2.0, Prothrombin Time 10.4, Prothromb Time International Ratio 1.0, Sodium Level 134L, Potassium Level 4.1, Chloride Level 94L, Carbon Dioxide Level 26, Anion Gap 14, Blood Urea Nitrogen 10, Creatinine 0.8, Estimat Glomerular Filtration Rate > 60, Glucose Level 214H, Calcium Level 9.2 Height (Feet): 5 Height (Inches): 4.00 Weight (Pounds): 198 General Appearance: WD/WN EENT: PERRL/EOMI Neck: non-tender Cardiovascular: normal peripheral pulses Respiratory/Chest: chest wall non-tender Abdomen: normal bowel sounds Extremities: normal range of motion Edema: no edema noted Leg (L), 1+ Leg (R), 1+ Pedal (R), no edema noted 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
[2016-09-17 20:00] VITALS: BP 119/69
--- NOTE | 2016-09-17 22:07 | Nephrology Progress Note ---
Assessment/Plan Problem List: (1) Pulmonary embolism (2) Chest pain (3) Vomiting (4) Diarrhea (5) Chronic pain disorder (6) S/P IVC filter Plan Continue coumadin INR goal 2-3 Continue lovenox Continue pain management Monitor H&H Monitor INR Objective Objective Last 24 Hour Vital Signs Date Time Temp Pulse Resp B/P Pulse Ox O2 Delivery O2 Flow Rate FiO2 09/17/16 20:00 97.5 60 16 119/69 97 Room Air 09/17/16 16:00 94.9 68 16 113/42 95 Room Air 09/17/16 12:00 97.9 80 18 104/71 96 Room Air 09/17/16 09:58 97.7 09/17/16 08:58 104/59 09/17/16 08:00 97.7 59 17 104/59 99 Room Air 09/17/16 04:13 97.5 74 20 128/66 94 Room Air 09/17/16 00:00 98.1 64 19 115/66 99 Room Air Intake and Output 09/16/16 09/17/16 19:00 07:00 Intake Total 990 ml 720 ml Balance 990 ml 720 ml Intake Oral 990 ml 720 ml # Voids 4 2 Laboratory Tests 09/17/16 05:25: White Blood Count 5.0, Red Blood Count 4.15L, Hemoglobin 10.1L, Hematocrit 32.9L , Mean Corpuscular Volume 79L, Mean Corpuscular Hemoglobin 24.3L, Mean Corpuscular Hemoglobin Concent 30.6L, Red Cell Distribution Width 15.7H, Platelet Count 274, Mean Platelet Volume 7.2, Neutrophils (%) (Auto) 47.6, Lymphocytes (%) (Auto) 38.9, Monocytes (%) (Auto) 7.3, Eosinophils (%) (Auto) 4.2H, Basophils (%) (Auto) 2.0, Prothrombin Time 10.4, Prothromb Time International Ratio 1.0, Sodium Level 134L, Potassium Level 4.1, Chloride Level 94L, Carbon Dioxide Level 26, Anion Gap 14, Blood Urea Nitrogen 10, Creatinine 0.8, Estimat Glomerular Filtration Rate > 60, Glucose Level 214H, Calcium Level 9.2 Height (Feet): 5 Height (Inches): 4.00 Weight (Pounds): 198 MIRAHMADI,LAUREN Sep 17, 2016 22:07
--- NOTE | 2016-09-17 23:03 | Infectious Diseases Prog Note ---
Assessment/Plan Problems: (1) Diarrhea Assessment & Plan: Resolved. Monitor off antibiotics. (2) Pulmonary embolism Assessment & Plan: On anticoagulation. (3) Chronic pain disorder (4) S/P IVC filter (5) DVT (deep venous thrombosis) Subjective Allergies: Coded Allergies: CODEINE (Verified Allergy, Unknown, SWELLING, ITCHING, 12/06/09) IBUPROFEN (Verified Allergy, Unknown, SWELLING, ITCHING, 12/06/09) METOCLOPRAMIDE (Verified Allergy, Unknown, SWELLING, ITCHING, 12/06/09) MORPHINE (Verified Allergy, Unknown, SWELLING, ITCHING, 12/06/09) Objective Vital Signs Last 24 Hour Vital Signs Date Time Temp Pulse Resp B/P Pulse Ox O2 Delivery O2 Flow Rate FiO2 09/17/16 20:00 97.5 60 16 119/69 97 Room Air 09/17/16 16:00 94.9 68 16 113/42 95 Room Air 09/17/16 12:00 97.9 80 18 104/71 96 Room Air 09/17/16 09:58 97.7 09/17/16 08:58 104/59 09/17/16 08:00 97.7 59 17 104/59 99 Room Air 09/17/16 04:13 97.5 74 20 128/66 94 Room Air 09/17/16 00:00 98.1 64 19 115/66 99 Room Air Height (Feet): 5 Height (Inches): 4.00 Weight (Pounds): 198 Laboratory Tests Test 09/17/16 05:25 White Blood Count 5.0 K/UL (4.8-10.8) Red Blood Count 4.15 M/UL (4.20-5.40) L Hemoglobin 10.1 G/DL (12.0-16.0) L Hematocrit 32.9 % (37.0-47.0) L Mean Corpuscular Volume 79 FL (80-99) L Mean Corpuscular Hemoglobin 24.3 PG (27.0-31.0) L Mean Corpuscular Hemoglobin Concent 30.6 G/DL (32.0-36.0) L Red Cell Distribution Width 15.7 % (11.6-14.8) H Platelet Count 274 K/UL (150-450) Mean Platelet Volume 7.2 FL (6.5-10.1) Neutrophils (%) (Auto) 47.6 % (45.0-75.0) Lymphocytes (%) (Auto) 38.9 % (20.0-45.0) Monocytes (%) (Auto) 7.3 % (1.0-10.0) Eosinophils (%) (Auto) 4.2 % (0.0-3.0) H Basophils (%) (Auto) 2.0 % (0.0-2.0) Prothrombin Time 10.4 SEC (9.30-11.50) Prothromb Time International Ratio 1.0 (0.9-1.1) Sodium Level 134 mEQ/L (135-145) L Potassium Level 4.1 mEQ/L (3.4-4.9) Chloride Level 94 mEQ/L (98-107) L Carbon Dioxide Level 26 mEQ/L (20-30) Anion Gap 14 (5-15) Blood Urea Nitrogen 10 mg/dL (7-23) Creatinine 0.8 mg/dL (0.5-0.9) Estimat Glomerular Filtration Rate > 60 mL/min (>60) Glucose Level 214 mg/dL (74-106) H Calcium Level 9.2 mg/dL (8.6-10.2) Current Medications Medications (Trade) Dose Ordered Sig/Joey Route PRN Reason Start Time Stop Time Status Last Admin Dose Admin Dextrose (Dextrose 50%) STAT PRN IV Hypoglycemia 09/17/16 00:45 10/17/16 00:44 Enoxaparin Sodium (Lovenox) 90 mg Q12HR SUBQ 09/16/16 21:00 10/16/16 20:59 09/17/16 21:17 HCTZ/Losartan Potassium (Hyzaar 50-12.5) 1 tab DAILY ORAL 09/17/16 09:00 10/17/16 08:59 09/17/16 08:58 Hydromorphone HCl/ Sodium Chloride (Dilaudid/Sodium Chloride) 56 ml @ 224 mls/hr Q4H PRN IVPB Severe Pain (Pain Scale 7-10) 09/16/16 20:15 09/23/16 20:14 Lorazepam (Ativan 2mg/ml 1ml) 1 mg Q4H PRN IV For Anxiety 09/16/16 21:00 09/23/16 20:59 Morphine Sulfate (MS Contin) 60 mg EVERY 12 HOURS ORAL 09/16/16 21:00 09/23/16 20:59 09/17/16 21:13 Oxycodone HCl (Roxicodone) 30 mg Q4H PRN ORAL Moderate Pain (Pain Scale 4-6) 09/16/16 19:15 09/23/16 19:14 09/17/16 22:36 Warfarin Sodium (Coumadin) 10 mg DAILY ORAL 09/17/16 17:00 09/22/16 16:59 09/17/16 17:34 LAMBERTO SPARROW Sep 17, 2016 23:03
[2016-09-18 04:00] VITALS: BP 127/85
[2016-09-18] MEDS: oxyCODONE 15mg IR tab ORAL PRN ×5 (04:08→23:19)
[2016-09-18 07:00] LABS: INR 1.1 (0.9-1.1); PROTHROMBIN TIME 11.6 SEC (9.30-11.50)
[2016-09-18 07:11] LABS: BASOPHILS % (AUTO) 1.5 % (0.0-2.0); EOSINOPHILS % (AUTO) 5.9 % (0.0-3.0); LYMPHOCYTES % (AUTO) 42.5 % (20.0-45.0); MEAN CORPUSCULAR HEMOGLOBIN 23.6 PG (27.0-31.0); MEAN CORPUSCULAR HGB CONC 29.6 G/DL (32.0-36.0); MEAN CORPUSCULAR VOLUME 80 FL (80-99); MEAN PLATELET VOLUME 7.2 FL (6.5-10.1); MONOCYTES % (AUTO) 9.1 % (1.0-10.0); PLATELET COUNT 283 K/UL (150-450); RED BLOOD COUNT 4.26 M/UL (4.20-5.40); RED CELL DISTRIBUTION WIDTH 15.6 % (11.6-14.8); WHITE BLOOD COUNT 4.2 K/UL (4.8-10.8)
[2016-09-18 07:30] LABS: ANION GAP 15 (5-15); CALCIUM 9.2 mg/dL (8.6-10.2); CARBON DIOXIDE 24 mEQ/L (20-30); CHLORIDE 95 mEQ/L (98-107); CREATININE 0.6 mg/dL (0.5-0.9); GLOMERULAR FILTRATION RATE > 60 mL/min (>60); HEMOLYSIS 3; POTASSIUM 4.5 mEQ/L (3.4-4.9); SODIUM 134 mEQ/L (135-145)
--- NOTE | 2016-09-18 07:46 | General Progress Note ---
Assessment/Plan Problem List: (1) ACS (acute coronary syndrome) ICD Codes: I24.9 - Acute ischemic heart disease, unspecified SNOMED: 111140651 (2) Diabetes ICD Codes: E11.9 - Type 2 diabetes mellitus without complications SNOMED: 57175375 (3) HTN (hypertension) ICD Codes: I10 - Essential (primary) hypertension SNOMED: 62905640 (4) Anemia ICD Codes: D64.9 - Anemia, unspecified SNOMED: 455276191 (5) Chest pain ICD Codes: R07.9 - Chest pain, unspecified SNOMED: 49094764 (6) Chronic pain disorder ICD Codes: G89.4 - Chronic pain syndrome SNOMED: 614509086 Status: stable, progressing, tolerating diet Assessment/Plan ot pt diet bs bp pain control cbc bmp am Subjective Constitutional: Reports: weakness Allergies: Coded Allergies: CODEINE (Verified Allergy, Unknown, SWELLING, ITCHING, 12/06/09) IBUPROFEN (Verified Allergy, Unknown, SWELLING, ITCHING, 12/06/09) METOCLOPRAMIDE (Verified Allergy, Unknown, SWELLING, ITCHING, 12/06/09) MORPHINE (Verified Allergy, Unknown, SWELLING, ITCHING, 12/06/09) All Systems: reviewed and negative except above Subjective calm in bed Objective Last 24 Hour Vital Signs Date Time Temp Pulse Resp B/P Pulse Ox O2 Delivery O2 Flow Rate FiO2 09/18/16 04:00 97.7 74 18 127/85 95 Room Air 09/17/16 20:00 97.5 60 16 119/69 97 Room Air 09/17/16 16:00 94.9 68 16 113/42 95 Room Air 09/17/16 12:00 97.9 80 18 104/71 96 Room Air 09/17/16 09:58 97.7 09/17/16 08:58 104/59 09/17/16 08:00 97.7 59 17 104/59 99 Room Air Intake and Output 09/17/16 09/18/16 19:00 07:00 Intake Total 840 ml 240 ml Balance 840 ml 240 ml Intake Oral 840 ml 240 ml # Voids 4 2 Laboratory Tests 09/18/16 05:35: White Blood Count [Pending], Red Blood Count [Pending], Hemoglobin [Pending], Hematocrit [Pending], Mean Corpuscular Volume [Pending], Mean Corpuscular Hemoglobin [Pending], Mean Corpuscular Hemoglobin Concent [Pending], Red Cell Distribution Width [Pending], Platelet Count [Pending], Mean Platelet Volume [ Pending], Neutrophils (%) (Auto) [Pending], Lymphocytes (%) (Auto) [Pending], Monocytes (%) (Auto) [Pending], Eosinophils (%) (Auto) [Pending], Basophils (%) (Auto) [Pending], Prothrombin Time 11.6H, Prothromb Time International Ratio 1.1 , Sodium Level 134L, Potassium Level 4.5, Chloride Level 95L, Carbon Dioxide Level 24, Anion Gap 15, Blood Urea Nitrogen 7, Creatinine 0.6, Estimat Glomerular Filtration Rate > 60, Glucose Level 193H, Calcium Level 9.2 Height (Feet): 5 Height (Inches): 4.00 Weight (Pounds): 198 General Appearance: alert EENT: normal ENT inspection Neck: normal alignment Cardiovascular: normal peripheral pulses, normal rate, regular rhythm Respiratory/Chest: chest wall non-tender, lungs clear, normal breath sounds Abdomen: normal bowel sounds, non tender, soft Extremities: normal inspection Edema: no edema noted Arm (L), no edema noted Arm (R), no edema noted Leg (L), no edema noted Leg (R), no edema noted Pedal (L), no edema noted Pedal (R), no edema noted Generalized Neurologic: responsive, motor weakness Skin: normal pigmentation, warm/dry FERNANDA VEGAS Sep 18, 2016 07:45
[2016-09-18 08:06] VITALS: BP 121/86
[2016-09-18] MEDS: Hyzaar 12.5mg/50mg tab ORAL SCH (09:02)
[2016-09-18] MEDS: MS Contin 30mg tab ORAL SCH ×2 (09:06→20:33)
[2016-09-18] MEDS: Enoxaparin Sodium 300mg/3ml vial SUBQ SCH ×2 (09:10→20:35)
[2016-09-18] MEDS: Warfarin Sodium 10mg ORAL SCH (09:29)
--- NOTE | 2016-09-18 09:34 | General Progress Note ---
Assessment/Plan Assessment/Plan (1) Chest pain (2) Pulmonary Embolism (3) Chronic Abdominal pain (4) Lumbago (5) Narcotic Dependency (6) Lumbar DDD (7) Lumbar Spondylosis The patient will be continued on morphine extended release, oxycodone and the Dilaudid. The patient was discussed with Dr. Andrews and Dr. Andrews concurred. Subjective Date patient seen: Sep 18, 2016 Time patient seen: 09:00 - am Allergies: Coded Allergies: CODEINE (Verified Allergy, Unknown, SWELLING, ITCHING, 12/06/09) IBUPROFEN (Verified Allergy, Unknown, SWELLING, ITCHING, 12/06/09) METOCLOPRAMIDE (Verified Allergy, Unknown, SWELLING, ITCHING, 12/06/09) MORPHINE (Verified Allergy, Unknown, SWELLING, ITCHING, 12/06/09) Subjective REVIEW OF SYSTEMS: Denies rash, fever, chills, sweating, dizziness, drowsiness, blurred vision, sore throat, or change in hearing or weight. No bowel or bladder incontinence. No dysuria. She is complaining of chest pain, abdominal pain, and low back pain. SUBJECTIVE: Her pain is at a stable and tolerable level controlled well she has no new complaints. Objective Last 24 Hour Vital Signs Date Time Temp Pulse Resp B/P Pulse Ox O2 Delivery O2 Flow Rate FiO2 09/18/16 09:02 121/86 09/18/16 08:06 97.9 69 20 121/86 100 Room Air 09/18/16 04:00 97.7 74 18 127/85 95 Room Air 09/17/16 20:00 97.5 60 16 119/69 97 Room Air 09/17/16 16:00 94.9 68 16 113/42 95 Room Air 09/17/16 12:00 97.9 80 18 104/71 96 Room Air 09/17/16 09:58 97.7 Intake and Output 09/17/16 09/18/16 19:00 07:00 Intake Total 840 ml 240 ml Balance 840 ml 240 ml Intake Oral 840 ml 240 ml # Voids 4 2 Laboratory Tests 09/18/16 05:35: White Blood Count 4.2L, Red Blood Count 4.26, Hemoglobin 10.1L, Hematocrit 34.0L , Mean Corpuscular Volume 80, Mean Corpuscular Hemoglobin 23.6L, Mean Corpuscular Hemoglobin Concent 29.6L, Red Cell Distribution Width 15.6H, Platelet Count 283, Mean Platelet Volume 7.2, Neutrophils (%) (Auto) 41.0L, Lymphocytes (%) (Auto) 42.5, Monocytes (%) (Auto) 9.1, Eosinophils (%) (Auto) 5.9H, Basophils (%) (Auto) 1.5, Prothrombin Time 11.6H, Prothromb Time International Ratio 1.1, Sodium Level 134L, Potassium Level 4.5, Chloride Level 95L, Carbon Dioxide Level 24, Anion Gap 15, Blood Urea Nitrogen 7, Creatinine 0.6, Estimat Glomerular Filtration Rate > 60, Glucose Level 193H, Calcium Level 9.2 Height (Feet): 5 Height (Inches): 4.00 Weight (Pounds): 198 Objective HEENT: PERRLA. NECK: Range of motion is decreased in all directions. No tenderness. No adenopathy. LUNGS: Decreased breath sounds bilaterally. ABDOMEN: Obese with tenderness to palpation. BACK: Range of motion is decreased in flexion and extension with tenderness to paraspinal muscles. No tenderness to trapezius or rhomboid muscles. EXTREMITIES: No cyanosis. No clubbing. No edema. NEURO: No changes. Procedure: XRAY L Spine Min 4v Findings: 2 mm anterior subluxation of L4 on L5. No associated pars intra-articular is defect detected. Alignment is intact. No fracture, lytic destruction, or other acute changes are demonstrated. 12th ribs are absent. Intervertebral disc spaces are normal in height. Small osteophytes at the margins of L2-3 and L3-4 disc spaces. Facet joints diffusely sclerotic and hypertrophied. Interval placement of filter in the infrarenal inferior vena cava. Intrauterine device remains in place within the pelvis. Upper abdominal surgical clips again noted. IMPRESSION: No evidence of acute abnormality of the lumbar spine Degenerative spondylosis manifesting primarily as facet arthropathy. Minimal degenerative disc disease. L4-5 grade 1 anterior spondylolisthesis, likely chronic degenerative in nature. Interval IVC filter placement Other stable chronic changes as described TYRESE BEDOYA Sep 18, 2016 09:34
--- NOTE | 2016-09-18 09:59 | Pulmonology Progress Note ---
Assessment/Plan Assessment/Plan # Pulmonary emboli, is s/p IVC filter. Continue Coumadin for now, INR 2-3. Per the patient, she has received hypocoagulable workup in the past. # DVT history, status post IVC filter placement. On coumadin, tolerating high doses # Coagulopathy - continue Coumadin. Continue Lovenox. # Hypertension # S/P IVC filter Subjective Interval Events: No change Constitutional: Reports: no symptoms HEENT: Repors: no symptoms Respiratory: Reports: no symptoms Cardiovascular: Reports: no symptoms Gastrointestinal/Abdominal: Reports: no symptoms Allergies: Coded Allergies: CODEINE (Verified Allergy, Unknown, SWELLING, ITCHING, 12/06/09) IBUPROFEN (Verified Allergy, Unknown, SWELLING, ITCHING, 12/06/09) METOCLOPRAMIDE (Verified Allergy, Unknown, SWELLING, ITCHING, 12/06/09) MORPHINE (Verified Allergy, Unknown, SWELLING, ITCHING, 12/06/09) Objective Last 24 Hour Vital Signs Date Time Temp Pulse Resp B/P Pulse Ox O2 Delivery O2 Flow Rate FiO2 09/18/16 09:02 121/86 09/18/16 08:06 97.9 69 20 121/86 100 Room Air 09/18/16 04:00 97.7 74 18 127/85 95 Room Air 09/17/16 20:00 97.5 60 16 119/69 97 Room Air 09/17/16 16:00 94.9 68 16 113/42 95 Room Air 09/17/16 12:00 97.9 80 18 104/71 96 Room Air Intake and Output 09/17/16 09/18/16 19:00 07:00 Intake Total 840 ml 240 ml Balance 840 ml 240 ml Intake Oral 840 ml 240 ml # Voids 4 2 General Appearance: no acute distress HEENT: normocephalic Respiratory/Chest: chest wall non-tender, lungs clear Cardiovascular: normal peripheral pulses, normal rate Abdomen: normal bowel sounds Laboratory Tests 09/18/16 05:35: White Blood Count 4.2L, Red Blood Count 4.26, Hemoglobin 10.1L, Hematocrit 34.0L , Mean Corpuscular Volume 80, Mean Corpuscular Hemoglobin 23.6L, Mean Corpuscular Hemoglobin Concent 29.6L, Red Cell Distribution Width 15.6H, Platelet Count 283, Mean Platelet Volume 7.2, Neutrophils (%) (Auto) 41.0L, Lymphocytes (%) (Auto) 42.5, Monocytes (%) (Auto) 9.1, Eosinophils (%) (Auto) 5.9H, Basophils (%) (Auto) 1.5, Prothrombin Time 11.6H, Prothromb Time International Ratio 1.1, Sodium Level 134L, Potassium Level 4.5, Chloride Level 95L, Carbon Dioxide Level 24, Anion Gap 15, Blood Urea Nitrogen 7, Creatinine 0.6, Estimat Glomerular Filtration Rate > 60, Glucose Level 193H, Calcium Level 9.2 Current Medications Medications (Trade) Dose Ordered Sig/Joey Route PRN Reason Start Time Stop Time Status Last Admin Dose Admin Dextrose (Dextrose 50%) STAT PRN IV Hypoglycemia 09/17/16 00:45 10/17/16 00:44 Enoxaparin Sodium (Lovenox) 90 mg Q12HR SUBQ 09/16/16 21:00 10/16/16 20:59 09/18/16 09:10 HCTZ/Losartan Potassium (Hyzaar 50-12.5) 1 tab DAILY ORAL 09/17/16 09:00 10/17/16 08:59 09/18/16 09:02 Hydromorphone HCl/ Sodium Chloride (Dilaudid/Sodium Chloride) 56 ml @ 224 mls/hr Q4H PRN IVPB Severe Pain (Pain Scale 7-10) 09/16/16 20:15 09/23/16 20:14 Lorazepam (Ativan 2mg/ml 1ml) 1 mg Q4H PRN IV For Anxiety 09/16/16 21:00 09/23/16 20:59 Morphine Sulfate (MS Contin) 60 mg EVERY 12 HOURS ORAL 09/16/16 21:00 09/23/16 20:59 09/18/16 09:06 Oxycodone HCl (Roxicodone) 30 mg Q4H PRN ORAL Moderate Pain (Pain Scale 4-6) 09/16/16 19:15 09/23/16 19:14 09/18/16 08:09 Warfarin Sodium (Coumadin) 10 mg DAILY ORAL 09/17/16 17:00 10/17/16 16:59 09/18/16 09:29 Keyshawn Lantigua MD Sep 18, 2016 09:59
--- NOTE | 2016-09-18 10:49 | Nephrology Progress Note ---
Assessment/Plan Problem List: (1) Pulmonary embolism (2) S/P IVC filter (3) Chest pain (4) Vomiting (5) Chronic pain disorder (6) Anemia (7) Diabetes (8) HTN (hypertension) (9) ACS (acute coronary syndrome) (10) Non compliance w medication regimen Plan patient is usually on coumadin 20-25 mg. cont lovenox. increase coumadin dose. anticipate d/c plan when INR >1.8. likely can d/c home with lovenox and coumadin. d/w patient at length regarding compliance. d/w Dr. Alvarado. Subjective Subjective no sob/cp. feels ok. Objective Objective Last 24 Hour Vital Signs Date Time Temp Pulse Resp B/P Pulse Ox O2 Delivery O2 Flow Rate FiO2 09/18/16 10:05 97.9 09/18/16 09:02 121/86 09/18/16 08:06 97.9 69 20 121/86 100 Room Air 09/18/16 04:00 97.7 74 18 127/85 95 Room Air 09/17/16 20:00 97.5 60 16 119/69 97 Room Air 09/17/16 16:00 94.9 68 16 113/42 95 Room Air 09/17/16 12:00 97.9 80 18 104/71 96 Room Air Intake and Output 09/17/16 09/18/16 19:00 07:00 Intake Total 840 ml 240 ml Balance 840 ml 240 ml Intake Oral 840 ml 240 ml # Voids 4 2 Laboratory Tests 09/18/16 05:35: White Blood Count 4.2L, Red Blood Count 4.26, Hemoglobin 10.1L, Hematocrit 34.0L , Mean Corpuscular Volume 80, Mean Corpuscular Hemoglobin 23.6L, Mean Corpuscular Hemoglobin Concent 29.6L, Red Cell Distribution Width 15.6H, Platelet Count 283, Mean Platelet Volume 7.2, Neutrophils (%) (Auto) 41.0L, Lymphocytes (%) (Auto) 42.5, Monocytes (%) (Auto) 9.1, Eosinophils (%) (Auto) 5.9H, Basophils (%) (Auto) 1.5, Prothrombin Time 11.6H, Prothromb Time International Ratio 1.1, Sodium Level 134L, Potassium Level 4.5, Chloride Level 95L, Carbon Dioxide Level 24, Anion Gap 15, Blood Urea Nitrogen 7, Creatinine 0.6, Estimat Glomerular Filtration Rate > 60, Glucose Level 193H, Calcium Level 9.2 Height (Feet): 5 Height (Inches): 4.00 Weight (Pounds): 198 General Appearance: no apparent distress Cardiovascular: normal rate, regular rhythm Respiratory/Chest: lungs clear Abdomen: non tender Extremities: non-pitting Neurologic: alert, oriented x 3 SOO QUEVEDO Sep 18, 2016 10:49
[2016-09-18 12:00] VITALS: BP 132/77
[2016-09-18] MEDS ORDERED: Warfarin Sodium 10mg ORAL ONE (12:00)
[2016-09-18 16:13] VITALS: BP 147/91
[2016-09-18 20:00] VITALS: BP 140/62
--- NOTE | 2016-09-18 23:05 | Infectious Diseases Prog Note ---
Assessment/Plan Problems: (1) Diarrhea Assessment & Plan: Resolved. Monitor off antibiotics. (2) Pulmonary embolism Assessment & Plan: On anticoagulation. (3) Chronic pain disorder (4) S/P IVC filter (5) DVT (deep venous thrombosis) Subjective Allergies: Coded Allergies: CODEINE (Verified Allergy, Unknown, SWELLING, ITCHING, 12/06/09) IBUPROFEN (Verified Allergy, Unknown, SWELLING, ITCHING, 12/06/09) METOCLOPRAMIDE (Verified Allergy, Unknown, SWELLING, ITCHING, 12/06/09) MORPHINE (Verified Allergy, Unknown, SWELLING, ITCHING, 12/06/09) Objective Vital Signs Last 24 Hour Vital Signs Date Time Temp Pulse Resp B/P Pulse Ox O2 Delivery O2 Flow Rate FiO2 09/18/16 20:00 97.9 62 18 140/62 100 Room Air 09/18/16 16:13 98.2 87 19 147/91 100 Room Air 09/18/16 12:00 97.5 76 17 132/77 98 Room Air 09/18/16 10:05 97.9 09/18/16 09:02 121/86 09/18/16 08:06 97.9 69 20 121/86 100 Room Air 09/18/16 04:00 97.7 74 18 127/85 95 Room Air Height (Feet): 5 Height (Inches): 4.00 Weight (Pounds): 198 Laboratory Tests Test 09/18/16 05:35 White Blood Count 4.2 K/UL (4.8-10.8) L Red Blood Count 4.26 M/UL (4.20-5.40) Hemoglobin 10.1 G/DL (12.0-16.0) L Hematocrit 34.0 % (37.0-47.0) L Mean Corpuscular Volume 80 FL (80-99) Mean Corpuscular Hemoglobin 23.6 PG (27.0-31.0) L Mean Corpuscular Hemoglobin Concent 29.6 G/DL (32.0-36.0) L Red Cell Distribution Width 15.6 % (11.6-14.8) H Platelet Count 283 K/UL (150-450) Mean Platelet Volume 7.2 FL (6.5-10.1) Neutrophils (%) (Auto) 41.0 % (45.0-75.0) L Lymphocytes (%) (Auto) 42.5 % (20.0-45.0) Monocytes (%) (Auto) 9.1 % (1.0-10.0) Eosinophils (%) (Auto) 5.9 % (0.0-3.0) H Basophils (%) (Auto) 1.5 % (0.0-2.0) Prothrombin Time 11.6 SEC (9.30-11.50) H Prothromb Time International Ratio 1.1 (0.9-1.1) Sodium Level 134 mEQ/L (135-145) L Potassium Level 4.5 mEQ/L (3.4-4.9) Chloride Level 95 mEQ/L (98-107) L Carbon Dioxide Level 24 mEQ/L (20-30) Anion Gap 15 (5-15) Blood Urea Nitrogen 7 mg/dL (7-23) Creatinine 0.6 mg/dL (0.5-0.9) Estimat Glomerular Filtration Rate > 60 mL/min (>60) Glucose Level 193 mg/dL (74-106) H Calcium Level 9.2 mg/dL (8.6-10.2) Current Medications Medications (Trade) Dose Ordered Sig/Joey Route PRN Reason Start Time Stop Time Status Last Admin Dose Admin Dextrose (Dextrose 50%) STAT PRN IV Hypoglycemia 09/17/16 00:45 10/17/16 00:44 Enoxaparin Sodium (Lovenox) 90 mg Q12HR SUBQ 09/16/16 21:00 10/16/16 20:59 09/18/16 20:35 HCTZ/Losartan Potassium (Hyzaar 50-12.5) 1 tab DAILY ORAL 09/17/16 09:00 10/17/16 08:59 09/18/16 09:02 Lorazepam (Ativan 2mg/ml 1ml) 1 mg Q4H PRN IV For Anxiety 09/16/16 21:00 09/23/16 20:59 Morphine Sulfate (MS Contin) 60 mg EVERY 12 HOURS ORAL 09/16/16 21:00 09/23/16 20:59 09/18/16 20:33 Oxycodone HCl (Roxicodone) 30 mg Q4H PRN ORAL Moderate Pain (Pain Scale 4-6) 09/16/16 19:15 4/28/17 19:14 09/18/16 18:38 Warfarin Sodium (Coumadin) 20 mg COUMADIN ORAL 09/19/16 17:00 09/24/16 16:59 LAMBERTO SPARROW Sep 18, 2016 23:05
[2016-09-19] MEDS: oxyCODONE 15mg IR tab ORAL PRN ×3 (03:42→14:50)
[2016-09-19 04:00] VITALS: BP 134/81
[2016-09-19 07:30] LABS: BASOPHILS % (AUTO) 2.6 % (0.0-2.0); EOSINOPHILS % (AUTO) 5.3 % (0.0-3.0); MEAN CORPUSCULAR HGB CONC 30.2 G/DL (32.0-36.0); MEAN CORPUSCULAR VOLUME 79 FL (80-99); MEAN PLATELET VOLUME 7.1 FL (6.5-10.1); MONOCYTES % (AUTO) 9.1 % (1.0-10.0); NEUTROPHILS % (AUTO) 40.1 % (45.0-75.0); PLATELET COUNT 259 K/UL (150-450); RED BLOOD COUNT 4.08 M/UL (4.20-5.40); RED CELL DISTRIBUTION WIDTH 15.3 % (11.6-14.8); WHITE BLOOD COUNT 4.2 K/UL (4.8-10.8)
[2016-09-19 07:45] LABS: INR 1.6 (0.9-1.1)
[2016-09-19 07:53] LABS: ANION GAP 16 (5-15); CALCIUM 9.2 mg/dL (8.6-10.2); CARBON DIOXIDE 24 mEQ/L (20-30); CHLORIDE 93 mEQ/L (98-107); CREATININE 0.7 mg/dL (0.5-0.9); GLOMERULAR FILTRATION RATE > 60 mL/min (>60); HEMOLYSIS 28; POTASSIUM 4.7 mEQ/L (3.4-4.9); SODIUM 133 mEQ/L (135-145)
[2016-09-19 08:00] VITALS: BP 134/75
[2016-09-19] MEDS: Hyzaar 12.5mg/50mg tab ORAL SCH (08:35)
--- NOTE | 2016-09-19 08:44 | General Progress Note ---
Assessment/Plan Assessment/Plan (1) Chest pain (2) Pulmonary Embolism (3) Chronic Abdominal pain (4) Lumbago (5) Narcotic Dependency (6) Lumbar DDD (7) Lumbar Spondylosis The patient will be continued on morphine extended release, oxycodone and the Dilaudid. The patient was discussed with Dr. Andrews and Dr. Andrews concurred. Subjective Date patient seen: Sep 19, 2016 Time patient seen: 07:00 - am Allergies: Coded Allergies: CODEINE (Verified Allergy, Unknown, SWELLING, ITCHING, 12/06/09) IBUPROFEN (Verified Allergy, Unknown, SWELLING, ITCHING, 12/06/09) METOCLOPRAMIDE (Verified Allergy, Unknown, SWELLING, ITCHING, 12/06/09) MORPHINE (Verified Allergy, Unknown, SWELLING, ITCHING, 12/06/09) Subjective REVIEW OF SYSTEMS: Denies rash, fever, chills, sweating, dizziness, drowsiness, blurred vision, sore throat, or change in hearing or weight. No bowel or bladder incontinence. No dysuria. She is complaining of chest pain, abdominal pain, and low back pain. SUBJECTIVE: Pain is stable and tolerated on the medications. She has no other pain complaints. Objective Last 24 Hour Vital Signs Date Time Temp Pulse Resp B/P Pulse Ox O2 Delivery O2 Flow Rate FiO2 09/19/16 08:35 134/75 09/19/16 08:00 98.6 83 20 134/75 96 Room Air 09/19/16 04:00 97.8 81 18 134/81 98 Room Air 09/18/16 20:00 97.9 62 18 140/62 100 Room Air 09/18/16 16:13 98.2 87 19 147/91 100 Room Air 09/18/16 12:00 97.5 76 17 132/77 98 Room Air 09/18/16 10:05 97.9 09/18/16 09:02 121/86 Intake and Output 09/18/16 09/19/16 19:00 07:00 Intake Total 1800 ml 750 ml Balance 1800 ml 750 ml Intake Oral 1800 ml 750 ml # Voids 2 3 Laboratory Tests 09/19/16 06:59: White Blood Count 4.2L, Red Blood Count 4.08L, Hemoglobin 9.8L, Hematocrit 32.3L , Mean Corpuscular Volume 79L, Mean Corpuscular Hemoglobin 24.0L, Mean Corpuscular Hemoglobin Concent 30.2L, Red Cell Distribution Width 15.3H, Platelet Count 259, Mean Platelet Volume 7.1, Neutrophils (%) (Auto) 40.1L, Lymphocytes (%) (Auto) 43.0, Monocytes (%) (Auto) 9.1, Eosinophils (%) (Auto) 5.3H, Basophils (%) (Auto) 2.6H, Prothrombin Time 17.0H, Prothromb Time International Ratio 1.6H, Sodium Level 133L, Potassium Level 4.7, Chloride Level 93L, Carbon Dioxide Level 24, Anion Gap 16H, Blood Urea Nitrogen 9, Creatinine 0.7, Estimat Glomerular Filtration Rate > 60, Glucose Level 249H, Calcium Level 9.2 Height (Feet): 5 Height (Inches): 4.00 Weight (Pounds): 198 Objective HEENT: PERRLA. NECK: Range of motion is decreased in all directions. No tenderness. No adenopathy. LUNGS: Decreased breath sounds bilaterally. ABDOMEN: Obese with tenderness to palpation. BACK: Range of motion is decreased in flexion and extension with tenderness to paraspinal muscles. No tenderness to trapezius or rhomboid muscles. EXTREMITIES: No cyanosis. No clubbing. No edema. NEURO: No changes. Procedure: XRAY L Spine Min 4v Findings: 2 mm anterior subluxation of L4 on L5. No associated pars intra-articular is defect detected. Alignment is intact. No fracture, lytic destruction, or other acute changes are demonstrated. 12th ribs are absent. Intervertebral disc spaces are normal in height. Small osteophytes at the margins of L2-3 and L3-4 disc spaces. Facet joints diffusely sclerotic and hypertrophied. Interval placement of filter in the infrarenal inferior vena cava. Intrauterine device remains in place within the pelvis. Upper abdominal surgical clips again noted. IMPRESSION: No evidence of acute abnormality of the lumbar spine Degenerative spondylosis manifesting primarily as facet arthropathy. Minimal degenerative disc disease. L4-5 grade 1 anterior spondylolisthesis, likely chronic degenerative in nature. Interval IVC filter placement Other stable chronic changes as described TYRESE BEDOYA Sep 19, 2016 08:44
[2016-09-19] MEDS: MS Contin 30mg tab ORAL SCH ×2 (09:00→10:46)
--- NOTE | 2016-09-19 09:04 | Pulmonology Progress Note ---
Assessment/Plan Assessment/Plan # Pulmonary emboli, is s/p IVC filter. Continue Coumadin for now, INR 2-3. Per the patient, she has received hypocoagulable workup in the past. # DVT history, status post IVC filter placement. On coumadin, tolerating high doses # Coagulopathy - continue Coumadin. Continue Lovenox. # Hypertension # S/P IVC filter Subjective Interval Events: None Constitutional: Reports: no symptoms HEENT: Repors: no symptoms Respiratory: Reports: shortness of breath Cardiovascular: Reports: no symptoms Gastrointestinal/Abdominal: Reports: no symptoms Genitourinary: Reports: no symptoms Allergies: Coded Allergies: CODEINE (Verified Allergy, Unknown, SWELLING, ITCHING, 12/06/09) IBUPROFEN (Verified Allergy, Unknown, SWELLING, ITCHING, 12/06/09) METOCLOPRAMIDE (Verified Allergy, Unknown, SWELLING, ITCHING, 12/06/09) MORPHINE (Verified Allergy, Unknown, SWELLING, ITCHING, 12/06/09) Objective Last 24 Hour Vital Signs Date Time Temp Pulse Resp B/P Pulse Ox O2 Delivery O2 Flow Rate FiO2 09/19/16 08:35 134/75 09/19/16 08:00 98.6 83 20 134/75 96 Room Air 09/19/16 04:00 97.8 81 18 134/81 98 Room Air 09/18/16 20:00 97.9 62 18 140/62 100 Room Air 09/18/16 16:13 98.2 87 19 147/91 100 Room Air 09/18/16 12:00 97.5 76 17 132/77 98 Room Air 09/18/16 10:05 97.9 Intake and Output 09/18/16 09/19/16 18:59 06:59 Intake Total 1800 ml 750 ml Balance 1800 ml 750 ml Intake Oral 1800 ml 750 ml # Voids 2 3 General Appearance: no acute distress HEENT: normocephalic Respiratory/Chest: chest wall non-tender, lungs clear Abdomen: normal bowel sounds, soft, non tender Laboratory Tests 09/19/16 06:59: White Blood Count 4.2L, Red Blood Count 4.08L, Hemoglobin 9.8L, Hematocrit 32.3L , Mean Corpuscular Volume 79L, Mean Corpuscular Hemoglobin 24.0L, Mean Corpuscular Hemoglobin Concent 30.2L, Red Cell Distribution Width 15.3H, Platelet Count 259, Mean Platelet Volume 7.1, Neutrophils (%) (Auto) 40.1L, Lymphocytes (%) (Auto) 43.0, Monocytes (%) (Auto) 9.1, Eosinophils (%) (Auto) 5.3H, Basophils (%) (Auto) 2.6H, Prothrombin Time 17.0H, Prothromb Time International Ratio 1.6H, Sodium Level 133L, Potassium Level 4.7, Chloride Level 93L, Carbon Dioxide Level 24, Anion Gap 16H, Blood Urea Nitrogen 9, Creatinine 0.7, Estimat Glomerular Filtration Rate > 60, Glucose Level 249H, Calcium Level 9.2 Current Medications Medications (Trade) Dose Ordered Sig/Joey Route PRN Reason Start Time Stop Time Status Last Admin Dose Admin Dextrose (Dextrose 50%) STAT PRN IV Hypoglycemia 09/17/16 00:45 10/17/16 00:44 Enoxaparin Sodium (Lovenox) 90 mg Q12HR SUBQ 09/16/16 21:00 10/16/16 20:59 09/18/16 20:35 HCTZ/Losartan Potassium (Hyzaar 50-12.5) 1 tab DAILY ORAL 09/17/16 09:00 10/17/16 08:59 09/19/16 08:35 Hydromorphone HCl (Dilaudid) 2 mg Q4H PRN IVPB severe pain 09/19/16 08:45 09/26/16 08:44 UNV Lorazepam (Ativan 2mg/ml 1ml) 1 mg Q4H PRN IV For Anxiety 09/16/16 21:00 09/23/16 20:59 Morphine Sulfate (MS Contin) 60 mg EVERY 12 HOURS ORAL 09/16/16 21:00 09/23/16 20:59 09/18/16 20:33 Oxycodone HCl (Roxicodone) 30 mg Q4H PRN ORAL Moderate Pain (Pain Scale 4-6) 09/16/16 19:15 09/23/16 19:14 09/19/16 08:35 Warfarin Sodium (Coumadin) 20 mg COUMADIN ORAL 09/19/16 17:00 09/24/16 16:59 Keyshawn Lantigua MD Sep 19, 2016 09:04
--- NOTE | 2016-09-19 09:33 | General Progress Note ---
Assessment/Plan Assessment/Plan Assessment/Recs: # Pulmonary emboli, is s/p IVC filter. Continue Coumadin for now, INR goal 2-3. Per the patient, she has received hypercoagulable workup in the past. # DVT history, status post IVC filter placement. On coumadin, tolerating high doses. # Coagulopathy - continue Coumadin. Continue Lovenox. # Hypertension -is on blood pressure control. # S/P IVC filter # Chronic pain- continue pain management. # Requires outpatient followup for management of anticoagulation, has not tolerated eliquis or xarelto in the past # Appreciate consultation!! Subjective Date patient seen: Sep 18, 2016 Constitutional: Reports: no symptoms HEENT: Reports: no symptoms Cardiovascular: Reports: no symptoms Respiratory: Reports: no symptoms Gastrointestinal/Abdominal: Reports: poor fluid intake Genitourinary: Reports: no symptoms Neurologic/Psychiatric: Reports: anxiety Endocrine: Reports: no symptoms Hematologic/Lymphatic: Reports: anemia Allergies: Coded Allergies: CODEINE (Verified Allergy, Unknown, SWELLING, ITCHING, 12/06/09) IBUPROFEN (Verified Allergy, Unknown, SWELLING, ITCHING, 12/06/09) METOCLOPRAMIDE (Verified Allergy, Unknown, SWELLING, ITCHING, 12/06/09) MORPHINE (Verified Allergy, Unknown, SWELLING, ITCHING, 12/06/09) Subjective pt calm, coumadin with goal inr 2-3 Objective Last 24 Hour Vital Signs Date Time Temp Pulse Resp B/P Pulse Ox O2 Delivery O2 Flow Rate FiO2 09/19/16 08:35 134/75 09/19/16 08:00 98.6 83 20 134/75 96 Room Air 09/19/16 04:00 97.8 81 18 134/81 98 Room Air 09/18/16 20:00 97.9 62 18 140/62 100 Room Air 09/18/16 16:13 98.2 87 19 147/91 100 Room Air 09/18/16 12:00 97.5 76 17 132/77 98 Room Air 09/18/16 10:05 97.9 Intake and Output 09/18/16 09/19/16 19:00 07:00 Intake Total 1800 ml 750 ml Balance 1800 ml 750 ml Intake Oral 1800 ml 750 ml # Voids 2 3 Laboratory Tests 09/19/16 06:59: White Blood Count 4.2L, Red Blood Count 4.08L, Hemoglobin 9.8L, Hematocrit 32.3L , Mean Corpuscular Volume 79L, Mean Corpuscular Hemoglobin 24.0L, Mean Corpuscular Hemoglobin Concent 30.2L, Red Cell Distribution Width 15.3H, Platelet Count 259, Mean Platelet Volume 7.1, Neutrophils (%) (Auto) 40.1L, Lymphocytes (%) (Auto) 43.0, Monocytes (%) (Auto) 9.1, Eosinophils (%) (Auto) 5.3H, Basophils (%) (Auto) 2.6H, Prothrombin Time 17.0H, Prothromb Time International Ratio 1.6H, Sodium Level 133L, Potassium Level 4.7, Chloride Level 93L, Carbon Dioxide Level 24, Anion Gap 16H, Blood Urea Nitrogen 9, Creatinine 0.7, Estimat Glomerular Filtration Rate > 60, Glucose Level 249H, Calcium Level 9.2 Height (Feet): 5 Height (Inches): 4.00 Weight (Pounds): 198 General Appearance: no apparent distress EENT: TMs normal Neck: supple Cardiovascular: normal rate Respiratory/Chest: normal breath sounds Abdomen: non tender Extremities: normal range of motion Edema: 1+ Leg (L), 1+ Leg (R) Edema: mild edema Neurologic: alert Skin: warm/dry Matthew Mesa Sep 19, 2016 09:33
[2016-09-19] MEDS ORDERED: HYDROmorphone 2 MG in NS 55 ML SUBQ PRN (09:45)
--- NOTE | 2016-09-19 10:12 | Infectious Diseases Prog Note ---
Assessment/Plan Problems: (1) Diarrhea Assessment & Plan: Resolved. Monitor off antibiotics. (2) Pulmonary embolism Assessment & Plan: On anticoagulation. (3) Chronic pain disorder (4) S/P IVC filter (5) DVT (deep venous thrombosis) Subjective Allergies: Coded Allergies: CODEINE (Verified Allergy, Unknown, SWELLING, ITCHING, 12/06/09) IBUPROFEN (Verified Allergy, Unknown, SWELLING, ITCHING, 12/06/09) METOCLOPRAMIDE (Verified Allergy, Unknown, SWELLING, ITCHING, 12/06/09) MORPHINE (Verified Allergy, Unknown, SWELLING, ITCHING, 12/06/09) Objective Vital Signs Last 24 Hour Vital Signs Date Time Temp Pulse Resp B/P Pulse Ox O2 Delivery O2 Flow Rate FiO2 09/19/16 08:35 134/75 09/19/16 08:00 98.6 83 20 134/75 96 Room Air 09/19/16 04:00 97.8 81 18 134/81 98 Room Air 09/18/16 20:00 97.9 62 18 140/62 100 Room Air 09/18/16 16:13 98.2 87 19 147/91 100 Room Air 09/18/16 12:00 97.5 76 17 132/77 98 Room Air Height (Feet): 5 Height (Inches): 4.00 Weight (Pounds): 198 Laboratory Tests Test 09/19/16 06:59 White Blood Count 4.2 K/UL (4.8-10.8) L Red Blood Count 4.08 M/UL (4.20-5.40) L Hemoglobin 9.8 G/DL (12.0-16.0) L Hematocrit 32.3 % (37.0-47.0) L Mean Corpuscular Volume 79 FL (80-99) L Mean Corpuscular Hemoglobin 24.0 PG (27.0-31.0) L Mean Corpuscular Hemoglobin Concent 30.2 G/DL (32.0-36.0) L Red Cell Distribution Width 15.3 % (11.6-14.8) H Platelet Count 259 K/UL (150-450) Mean Platelet Volume 7.1 FL (6.5-10.1) Neutrophils (%) (Auto) 40.1 % (45.0-75.0) L Lymphocytes (%) (Auto) 43.0 % (20.0-45.0) Monocytes (%) (Auto) 9.1 % (1.0-10.0) Eosinophils (%) (Auto) 5.3 % (0.0-3.0) H Basophils (%) (Auto) 2.6 % (0.0-2.0) H Prothrombin Time 17.0 SEC (9.30-11.50) H Prothromb Time International Ratio 1.6 (0.9-1.1) H Sodium Level 133 mEQ/L (135-145) L Potassium Level 4.7 mEQ/L (3.4-4.9) Chloride Level 93 mEQ/L (98-107) L Carbon Dioxide Level 24 mEQ/L (20-30) Anion Gap 16 (5-15) H Blood Urea Nitrogen 9 mg/dL (7-23) Creatinine 0.7 mg/dL (0.5-0.9) Estimat Glomerular Filtration Rate > 60 mL/min (>60) Glucose Level 249 mg/dL (74-106) H Calcium Level 9.2 mg/dL (8.6-10.2) Current Medications Medications (Trade) Dose Ordered Sig/Joey Route PRN Reason Start Time Stop Time Status Last Admin Dose Admin Dextrose (Dextrose 50%) STAT PRN IV Hypoglycemia 09/17/16 00:45 10/17/16 00:44 Enoxaparin Sodium (Lovenox) 90 mg Q12HR SUBQ 09/16/16 21:00 10/16/16 20:59 09/18/16 20:35 HCTZ/Losartan Potassium (Hyzaar 50-12.5) 1 tab DAILY ORAL 09/17/16 09:00 10/17/16 08:59 09/19/16 08:35 Hydromorphone HCl/ Sodium Chloride (Dilaudid/Sodium Chloride) 56 ml @ 224 mls/hr Q4H PRN SUBQ Severe Pain (Pain Scale 7-10) 09/19/16 09:45 09/26/16 09:44 Lorazepam (Ativan 2mg/ml 1ml) 1 mg Q4H PRN IV For Anxiety 09/16/16 21:00 09/23/16 20:59 Morphine Sulfate (MS Contin) 60 mg EVERY 12 HOURS ORAL 09/16/16 21:00 09/23/16 20:59 09/18/16 20:33 Oxycodone HCl (Roxicodone) 30 mg Q4H PRN ORAL Moderate Pain (Pain Scale 4-6) 09/16/16 19:15 09/23/16 19:14 09/19/16 08:35 Warfarin Sodium 20 mg 20 mg COUMADIN ORAL 09/19/16 17:00 09/24/16 16:59 LAMBERTO SPARROW Sep 19, 2016 10:12
[2016-09-19] MEDS: Enoxaparin Sodium 300mg/3ml vial SUBQ SCH (10:42)
[2016-09-19 12:00] VITALS: BP 149/96
--- NOTE | 2016-09-19 12:18 | General Progress Note ---
Assessment/Plan Problem List: (1) ACS (acute coronary syndrome) ICD Codes: I24.9 - Acute ischemic heart disease, unspecified SNOMED: 713296166 (2) Diabetes ICD Codes: E11.9 - Type 2 diabetes mellitus without complications SNOMED: 62826977 (3) HTN (hypertension) ICD Codes: I10 - Essential (primary) hypertension SNOMED: 79403668 (4) Anemia ICD Codes: D64.9 - Anemia, unspecified SNOMED: 567011641 (5) Chest pain ICD Codes: R07.9 - Chest pain, unspecified SNOMED: 39292644 (6) Chronic pain disorder ICD Codes: G89.4 - Chronic pain syndrome SNOMED: 048911519 Status: stable, progressing, tolerating diet Assessment/Plan ot pt diet bs bp pain control dc plan Subjective Constitutional: Reports: weakness Allergies: Coded Allergies: CODEINE (Verified Allergy, Unknown, SWELLING, ITCHING, 12/06/09) IBUPROFEN (Verified Allergy, Unknown, SWELLING, ITCHING, 12/06/09) METOCLOPRAMIDE (Verified Allergy, Unknown, SWELLING, ITCHING, 12/06/09) MORPHINE (Verified Allergy, Unknown, SWELLING, ITCHING, 12/06/09) All Systems: reviewed and negative except above Subjective calm in bed Objective Last 24 Hour Vital Signs Date Time Temp Pulse Resp B/P Pulse Ox O2 Delivery O2 Flow Rate FiO2 09/19/16 08:35 134/75 09/19/16 08:00 98.6 83 20 134/75 96 Room Air 09/19/16 04:00 97.8 81 18 134/81 98 Room Air 09/18/16 20:00 97.9 62 18 140/62 100 Room Air 09/18/16 16:13 98.2 87 19 147/91 100 Room Air Intake and Output 09/18/16 09/19/16 19:00 07:00 Intake Total 1800 ml 750 ml Balance 1800 ml 750 ml Intake Oral 1800 ml 750 ml # Voids 2 3 Laboratory Tests 09/19/16 06:59: White Blood Count 4.2L, Red Blood Count 4.08L, Hemoglobin 9.8L, Hematocrit 32.3L , Mean Corpuscular Volume 79L, Mean Corpuscular Hemoglobin 24.0L, Mean Corpuscular Hemoglobin Concent 30.2L, Red Cell Distribution Width 15.3H, Platelet Count 259, Mean Platelet Volume 7.1, Neutrophils (%) (Auto) 40.1L, Lymphocytes (%) (Auto) 43.0, Monocytes (%) (Auto) 9.1, Eosinophils (%) (Auto) 5.3H, Basophils (%) (Auto) 2.6H, Prothrombin Time 17.0H, Prothromb Time International Ratio 1.6H, Sodium Level 133L, Potassium Level 4.7, Chloride Level 93L, Carbon Dioxide Level 24, Anion Gap 16H, Blood Urea Nitrogen 9, Creatinine 0.7, Estimat Glomerular Filtration Rate > 60, Glucose Level 249H, Calcium Level 9.2 Height (Feet): 5 Height (Inches): 4.00 Weight (Pounds): 198 General Appearance: alert EENT: normal ENT inspection Neck: normal alignment Cardiovascular: normal peripheral pulses, normal rate, regular rhythm Respiratory/Chest: chest wall non-tender, lungs clear, normal breath sounds Abdomen: normal bowel sounds, non tender, soft Extremities: normal inspection Edema: no edema noted Arm (L), no edema noted Arm (R), no edema noted Leg (L), no edema noted Leg (R), no edema noted Pedal (L), no edema noted Pedal (R), no edema noted Generalized Neurologic: responsive, motor weakness Skin: normal pigmentation, warm/dry FERNANDA VEGAS Sep 19, 2016 12:18
[2016-09-19 16:00] VITALS: BP 138/77
--- NOTE | 2016-09-19 16:37 | Cardiac Electrophysiology PN ---
Assessment/Plan Assessment/Plan 1. Atypical Chest pain. Ruled out for myocardial infarction.? due to small right lower lobe pulmonary embolism. 2. PE. On Coumadin 20 mg per pharmacy and Lovenox 90 mg subcutaneous b.i.d. INR still subtherapeutic at 1.6 ! 3. Hypertension. Continue losartan/ hydrochlorothiazide 50/12.5 mg daily 4. Hypothyroidism, on Synthroid. 5. Diabetes, on insulin. 6. Bradycardia. Off any TAYLOR or AVN rush. Resolved. 7. Diarrhea. Resolved. Off Flagyl ABIMAEL RN Subjective Subjective No events overnight. On Lovenox and Coumadin per pharmacy. INR today 1.6 despite high dose of Coumadin per pharmacy. Objective Last 24 Hour Vital Signs Date Time Temp Pulse Resp B/P Pulse Ox O2 Delivery O2 Flow Rate FiO2 09/19/16 12:00 98.4 108 20 149/96 97 Room Air 09/19/16 08:35 134/75 09/19/16 08:00 98.6 83 20 134/75 96 Room Air 09/19/16 04:00 97.8 81 18 134/81 98 Room Air 09/18/16 20:00 97.9 62 18 140/62 100 Room Air Intake and Output 09/18/16 09/19/16 19:00 07:00 Intake Total 1800 ml 750 ml Balance 1800 ml 750 ml Intake Oral 1800 ml 750 ml # Voids 2 3 Laboratory Tests Test 09/19/16 06:59 White Blood Count 4.2 K/UL (4.8-10.8) L Red Blood Count 4.08 M/UL (4.20-5.40) L Hemoglobin 9.8 G/DL (12.0-16.0) L Hematocrit 32.3 % (37.0-47.0) L Mean Corpuscular Volume 79 FL (80-99) L Mean Corpuscular Hemoglobin 24.0 PG (27.0-31.0) L Mean Corpuscular Hemoglobin Concent 30.2 G/DL (32.0-36.0) L Red Cell Distribution Width 15.3 % (11.6-14.8) H Platelet Count 259 K/UL (150-450) Mean Platelet Volume 7.1 FL (6.5-10.1) Neutrophils (%) (Auto) 40.1 % (45.0-75.0) L Lymphocytes (%) (Auto) 43.0 % (20.0-45.0) Monocytes (%) (Auto) 9.1 % (1.0-10.0) Eosinophils (%) (Auto) 5.3 % (0.0-3.0) H Basophils (%) (Auto) 2.6 % (0.0-2.0) H Prothrombin Time 17.0 SEC (9.30-11.50) H Prothromb Time International Ratio 1.6 (0.9-1.1) H Sodium Level 133 mEQ/L (135-145) L Potassium Level 4.7 mEQ/L (3.4-4.9) Chloride Level 93 mEQ/L (98-107) L Carbon Dioxide Level 24 mEQ/L (20-30) Anion Gap 16 (5-15) H Blood Urea Nitrogen 9 mg/dL (7-23) Creatinine 0.7 mg/dL (0.5-0.9) Estimat Glomerular Filtration Rate > 60 mL/min (>60) Glucose Level 249 mg/dL (74-106) H Calcium Level 9.2 mg/dL (8.6-10.2) Objective HEAD AND NECK: No JVD LUNGS: Clear. CARDIOVASCULAR: Nl S1 and S2 with no gallop or murmur. ABDOMEN: Soft and nontender. EXTREMITIES: No pitting edema. ERIN MARTE Sep 19, 2016 16:37
[2016-09-19] MEDS ORDERED: Warfarin Sodium 10mg ORAL SCH (17:00)
--- NOTE | 2016-09-19 18:31 | Nephrology Progress Note ---
Assessment/Plan Problem List: (1) Non compliance w medication regimen (2) Pulmonary embolism (3) Chest pain (4) Vomiting (5) Diarrhea Plan Continue pain management Monitor counts Monitor PT/INR- goal of 2 Pt instructed to f/u with PCP out pt on Subjective Constitutional: Denies: chills, diaphoresis, fever, malaise, no symptoms, other , weakness HEENT: Denies: blurred vision, double vision, ear discharge, ear pain, eye pain , mouth pain, mouth swelling, no symptoms, nose congestion, nose pain, other, tearing, throat pain, throat swelling Genitourinary: Denies: burning, discharge, flank pain, frequency, hematuria, incontinence, no symptoms, other, pain, urgency Neurologic/Psychiatric: Denies: anxiety, depressed, emotional problems, headache, no symptoms, numbness, other, paresthesia, pre-existing deficit, seizure, tingling, tremors, weakness Subjective Pt has been discharged, leaving at this time Objective Objective Last 24 Hour Vital Signs Date Time Temp Pulse Resp B/P Pulse Ox O2 Delivery O2 Flow Rate FiO2 09/19/16 16:00 98.1 78 20 138/77 99 Room Air 09/19/16 12:00 98.4 108 20 149/96 97 Room Air 09/19/16 08:35 134/75 09/19/16 08:00 98.6 83 20 134/75 96 Room Air 09/19/16 04:00 97.8 81 18 134/81 98 Room Air 09/18/16 20:00 97.9 62 18 140/62 100 Room Air Intake and Output 09/18/16 09/19/16 19:00 07:00 Intake Total 1800 ml 750 ml Balance 1800 ml 750 ml Intake Oral 1800 ml 750 ml # Voids 2 3 Laboratory Tests 09/19/16 06:59: White Blood Count 4.2L, Red Blood Count 4.08L, Hemoglobin 9.8L, Hematocrit 32.3L , Mean Corpuscular Volume 79L, Mean Corpuscular Hemoglobin 24.0L, Mean Corpuscular Hemoglobin Concent 30.2L, Red Cell Distribution Width 15.3H, Platelet Count 259, Mean Platelet Volume 7.1, Neutrophils (%) (Auto) 40.1L, Lymphocytes (%) (Auto) 43.0, Monocytes (%) (Auto) 9.1, Eosinophils (%) (Auto) 5.3H, Basophils (%) (Auto) 2.6H, Prothrombin Time 17.0H, Prothromb Time International Ratio 1.6H, Sodium Level 133L, Potassium Level 4.7, Chloride Level 93L, Carbon Dioxide Level 24, Anion Gap 16H, Blood Urea Nitrogen 9, Creatinine 0.7, Estimat Glomerular Filtration Rate > 60, Glucose Level 249H, Calcium Level 9.2 Height (Feet): 5 Height (Inches): 4.00 Weight (Pounds): 198 General Appearance: no apparent distress, alert EENT: normal ENT inspection Neck: normal alignment, supple Cardiovascular: normal rate, regular rhythm, no JVD Respiratory/Chest: lungs clear, normal breath sounds, no respiratory distress Abdomen: non tender, soft, no organomegaly Extremities: non-tender, normal inspection, no calf tenderness Neurologic: alert, oriented x 3, responsive, normal mood/affect Lillian Dexter N.P. Sep 19, 2016 18:31
--- NOTE | 2016-09-20 00:14 | General Progress Note ---
Assessment/Plan Assessment/Plan Assessment/Recs: # Pulmonary emboli, is s/p IVC filter. Continue Coumadin for now, INR goal 2-3. Per the patient, she has received hypercoagulable workup in the past. # DVT history, status post IVC filter placement. On coumadin, tolerating high doses. # Coagulopathy - continue Coumadin. Continue Lovenox. # Hypertension -is on blood pressure control. # S/P IVC filter # Chronic pain- continue pain management. # Requires outpatient followup for management of anticoagulation, has not tolerated eliquis or xarelto in the past # Appreciate consultation!! Subjective Constitutional: Reports: no symptoms HEENT: Reports: no symptoms Cardiovascular: Reports: no symptoms Respiratory: Reports: no symptoms Gastrointestinal/Abdominal: Reports: no symptoms Genitourinary: Reports: no symptoms Neurologic/Psychiatric: Reports: no symptoms Endocrine: Reports: no symptoms Hematologic/Lymphatic: Reports: anemia Allergies: Coded Allergies: CODEINE (Verified Allergy, Unknown, SWELLING, ITCHING, 12/06/09) IBUPROFEN (Verified Allergy, Unknown, SWELLING, ITCHING, 12/06/09) METOCLOPRAMIDE (Verified Allergy, Unknown, SWELLING, ITCHING, 12/06/09) MORPHINE (Verified Allergy, Unknown, SWELLING, ITCHING, 12/06/09) Subjective pt to be DC, educated on medications and will f/u, I wrote her a script Objective Last 24 Hour Vital Signs Date Time Temp Pulse Resp B/P Pulse Ox O2 Delivery O2 Flow Rate FiO2 09/19/16 16:00 98.1 78 20 138/77 99 Room Air 09/19/16 12:00 98.4 108 20 149/96 97 Room Air 09/19/16 08:35 134/75 09/19/16 08:00 98.6 83 20 134/75 96 Room Air 09/19/16 04:00 97.8 81 18 134/81 98 Room Air Intake and Output 09/19/16 09/20/16 19:00 07:00 Intake Total 600 ml Balance 600 ml Intake Oral 600 ml # Voids 3 Laboratory Tests 09/19/16 06:59: White Blood Count 4.2L, Red Blood Count 4.08L, Hemoglobin 9.8L, Hematocrit 32.3L , Mean Corpuscular Volume 79L, Mean Corpuscular Hemoglobin 24.0L, Mean Corpuscular Hemoglobin Concent 30.2L, Red Cell Distribution Width 15.3H, Platelet Count 259, Mean Platelet Volume 7.1, Neutrophils (%) (Auto) 40.1L, Lymphocytes (%) (Auto) 43.0, Monocytes (%) (Auto) 9.1, Eosinophils (%) (Auto) 5.3H, Basophils (%) (Auto) 2.6H, Prothrombin Time 17.0H, Prothromb Time International Ratio 1.6H, Sodium Level 133L, Potassium Level 4.7, Chloride Level 93L, Carbon Dioxide Level 24, Anion Gap 16H, Blood Urea Nitrogen 9, Creatinine 0.7, Estimat Glomerular Filtration Rate > 60, Glucose Level 249H, Calcium Level 9.2 Height (Feet): 5 Height (Inches): 4.00 Weight (Pounds): 198 General Appearance: no apparent distress EENT: TMs normal Neck: supple Cardiovascular: normal rate Respiratory/Chest: lungs clear Abdomen: non tender Extremities: non-tender Edema: no edema noted Leg (L), no edema noted Leg (R), no edema noted Pedal (L) , no edema noted Pedal (R), no edema noted Generalized Skin: warm/dry Matthew Mesa Sep 20, 2016 00:14
--- NOTE | 2016-09-21 07:01 | Discharge Summary ---
Discharge Summary Hospital Course Date of Admission Sep 11, 2016 at 21:01 Date of Discharge Sep 19, 2016 at 18:15 Admitting Diagnosis acute coronary syndrome HPI Kimberly Heard is a 46 year old female who was admitted on Sep 11, 2016 at 21:01 for Acute Coronary Syndrome Hospital Course dc summary #[id number] Discharge Medications Continued Medications: Amlodipine Besylate* (Amlodipine Besylate*) 10 Mg Tablet 10 MG PO DAILY, #30 Insulin Glargine (Lantus) 100 Unit/1 Ml Insuln.pen 15 UNITS SUBQ BEDTIME, #1 EA 0 Refills Levothyroxine Sodium* (Synthroid*) 100 Mcg Tablet 100 MCG ORAL DAILY, TAB Take in the morning on an empty stomach, at least 30 minutes before food. Losartan/Hydrochlorothiazide 100-25 Tablet (Hyzaar 100-25 Tablet) 1 Each Tablet 1 TAB ORAL DAILY, TAB Oxycodone Hcl (Oxycodone Hcl) 30 Mg Tablet 30 MG PO EVERY 3 HOURS PRN for Breakthrough Pain, #100 Oxycodone Hcl Er* (Oxycontin*) 40 Mg Tab.er.12h 60 MG ORAL THREE TIMES A DAY, TAB Discontinued Medications: Warfarin Sod* (Warfarin Sod*) 7.5 Mg Tablet 7.5 MG PO DAILY, #30 Discharge Condition Upon Discharge: stable Discharge Disposition Patient was discharged to Home () scripts for Lovenox and Coumadin provided Discharge Diagnoses: Discharge Instructions Discharge Instructions Special Instructions I have been assigned to complete a D/C Summary on this account. I was not involved in the patient management Ban Larson NP (Vanchtein) Sep 21, 2016 07:01
--- NOTE | 2016-09-21 09:38 | Discharge Summary 2 SIG ---
DATE OF ADMISSION: 09/11/2016 DATE OF DISCHARGE: 09/19/2016 REASON FOR ADMISSION: The patient is a 46-year-old female, came to emergency room complaining of chest pain and chest tightness. She quantifies the chest pain as being 6/10 on a scale 1 to 10. The patient also reported history of DVT three months ago with the IVC filter placed subsequently. The patient was on Coumadin, but was not taking that for several months due to nausea and vomiting. She denied fever and chills. Occasional epigastric abdominal pain. She denied fall or trauma. CTA of the chest in the emergency room revealed small bilateral lower lobe segmental pulmonary emboli. The patient started on anticoagulation in the emergency room with Lovenox and transferred to the floor for further management. ADMITTING DIAGNOSES: 1. Pulmonary emboli. 2. History of deep venous thrombosis with status post inferior vena cava filter. 3. Noncompliance with medication. 4. Chest pain likely secondary to pulmonary embolism. 5. Nausea and vomiting. HOSPITAL STAY: The patient admitted to telemetry floor initially. Cardiology and Pulmonary consults were requested along with the technical specialist cytology and pain specialist. The patient started on Lovenox along with Coumadin to bridge to therapeutic INR. INR prior to discharge still 1.6. The patient was discharged on Lovenox and Coumadin and to follow up with her primary doctor in few days as outlined by medical doctor here in the facility. ID doctor followed the patient due to nausea and vomiting and the patient started diarrhea. The patient was on empiric antibiotics. Diarrhea resolved. Blood culture negative. The patient is off antibiotics. No leukocytosis. No fever. ID recommended to keep the patient off antibiotics. Cardiology and Pulmonology specialist seen the patient. Echocardiogram was done, which revealed normal ejection fraction of 55% to 60% and right ventricular pressure of 38 consistent with mild pulmonary hypertension. No evidence of thrombus. Initially, bradycardic with heart rate of 55 sinus bradycardia on EKG. The patient off any SV node blockers or AV node blockers. Bradycardia resolved. According to pantograph ii engraver, chest pain atypical likely secondary to PE. Serial troponins were negative. EKG revealed no ischemic changes. Thus, the patient ruled out for acute CO. Blood pressure was managed with valsartan and hydrochlorothiazide and was stable. Blood sugar was managed with sliding scale of insulin was stable. The patient with chronic pain syndrome. Pain specialist consult was requested. Lumbar x-ray revealed chronic degenerative changes, but no acute pathology. Pain management was addressed in the hospital. Pain was controlled. Road Advisor seen the patient and closely follow her. Hypercoagulability workup was done in the past. The patient did not tolerate Xarelto and Eliquis in the past. The patient will need close outpatient followup for INR monitoring and at this time continue both Lovenox and Coumadin until INR reached therapeutic window. The patient was counseled on compliance with the medication regimen. DISCHARGE DIAGNOSES: 1. Pulmonary emboli . 2. History of deep venous thrombosis with status post inferior vena cava filter. 3. Noncompliance. 4. Atypical chest pain likely secondary to pulmonary embolism. 5. Hypertension. 6. Diabetes. 7. Chronic pain syndrome. 8. Lumbar degenerative disease. 9. Lumbar spondylosis. 10. Nausea and vomiting with diarrhea, resolved. DISCHARGE MEDICATIONS: See medication reconciliation list. The patient was given prescription for Lovenox and Coumadin and further instructions by primary medical doctor. DISCHARGE INSTRUCTIONS: The patient to follow up with the primary medical doctor in few days as outlined by primary medical doctor. Eamon Alvarado M.D. I have been assigned to dictate discharge summary on this account and I was not involved in the patient's management. Ban mccoycharmaine) N.PAlexsander DR: Jeremías JOB#: [id number] CC:
== END 2016-09-19 18:15 | disposition home or self-care (01) | DRG 176 ==
LOC: EMR 20:32 → 2E 21:01 → EDBEDREQ 21:48 → 3E 09-16 17:30
DX: I26.99 Other pulmonary embolism without acute cor pulmonale (principal); I27.2 Other secondary pulmonary hypertension; F11.20 Opioid dependence, uncomplicated; I10 Essential (primary) hypertension; E11.9 Type 2 diabetes mellitus without complications; D64.9 Anemia, unspecified; Z86.718 Personal history of other venous thrombosis and embolism; Z91.14 Patient's other noncompliance with medication regimen; R11.2 Nausea with vomiting, unspecified; G89.4 Chronic pain syndrome; M51.36 Other intervertebral disc degeneration, lumbar region; M47.896 Other spondylosis, lumbar region; R19.7 Diarrhea, unspecified; R07.89 Other chest pain; Z88.6 Allergy status to analgesic agent; Z88.8 Allergy status to other drugs, medicaments and biological substances; Z79.01 Long term (current) use of anticoagulants; F41.9 Anxiety disorder, unspecified; E03.9 Hypothyroidism, unspecified; Z79.4 Long term (current) use of insulin; R00.1 Bradycardia, unspecified; Z98.84 Bariatric surgery status
CPT/HCPCS: 36415; 71010; 71275; 72110; 80048; 80053; 82550; 82553; 82607; 82728; 83010; 83020; 83690; 83880; 84484; 85007; 85025; 85060; 85379; 85610; 85730; 86703; 87040; 93005; 93306; 97803; J2405

== ENCOUNTER 2016-10-01 17:41 | Emergency (ER) | payer BC ==
[~2016-10-01] VITALS: Ht 162.6 cm; Wt 88.5 kg
[~2016-10-01 17:41] MED LIST changes: +AMLODIPINE BESY10 MG PO; +OXYCODONE HCL30 MG PO; +OXYCONTIN40 MG ORAL; +WARFARIN SODIU7.5 MG PO
--- NOTE | 2016-10-01 18:14 | Emergency Room Report ---
History of Present Illness General Chief Complaint: Chest Pain Source: Patient Present Illness HPI Patient is a 46-year-old female presented after increased chest pain. Patient gradual onset of symptoms. Patient prior history of chronic pain as well as pulmonary embolism. Patient had recently had discontinued her medications after not checking her INR. The patient was hospitalized approximately one week ago. She denied any fever. She denied productive cough. She reports having some sharp pain to the right side of her chest. The patient states he has had multiple clots in the past . she reports marked multiple medication allergies. Allergies: Coded Allergies: ACETAMINOPHEN (Unverified Allergy, Mild, Rash, 10/01/16) lip redness. CODEINE (Verified Allergy, Unknown, SWELLING, ITCHING, 12/06/09) IBUPROFEN (Verified Allergy, Unknown, SWELLING, ITCHING, 12/06/09) METOCLOPRAMIDE (Verified Allergy, Unknown, SWELLING, ITCHING, 12/06/09) MORPHINE (Verified Allergy, Unknown, SWELLING, ITCHING, 12/06/09) Patient History Past Medical History: see triage record Last Menstrual Period: 09/10/16 Now: No Reviewed Nursing Documentation: PMH: Agreed, PSxH: Agreed Nursing Documentation-PMH Past Medical History: No History, Except For Hx Hypertension: Yes Hx Diabetes: Yes Hx Cancer: No Hx Gastrointestinal Problems: Yes - gastric bypass 2008, cholecystectomy 2001 Hx Neurological Problems: No Review of Systems All Other Systems: negative except mentioned in HPI Physical Exam Vital Signs Date Time Temp Pulse Resp B/P Pulse Ox O2 Delivery O2 Flow Rate FiO2 10/01/16 17:50 98.4 86 14 158/91 100 Room Air Sp02 EP Interpretation: reviewed, normal General Appearance: normal inspection, well appearing, no apparent distress, alert, GCS 15, non-toxic Head: atraumatic ENT: normal ENT inspection, hearing grossly normal, normal voice Neck: normal inspection, full range of motion, supple, no bony tend Respiratory: normal inspection, lungs clear, normal breath sounds, no respiratory distress, no retraction, no wheezing Cardiovascular #1: regular rate, rhythm, no edema Gastrointestinal: normal inspection, normal bowel sounds, non tender, soft, no guarding, no hernia Genitourinary: no CVA tenderness Musculoskeletal: normal inspection, back normal, normal range of motion Neurologic: normal inspection, alert, oriented x3, responsive, bandage wrapping machine operator III-XII nml as tested, speech normal Psychiatric: normal inspection, judgement/insight normal, mood/affect normal Skin: normal inspection, normal color, no rash Medical Decision Making Diagnostic Impression: Primary Impression: Chronic pain disorder Additional Impressions: Subtherapeutic anticoagulation History of pulmonary embolus (PE) ER Course Patient presented for chest pain.Differential diagnosis included but was not limited to acute coronary syndrome, pulmonary embolism, pneumonia, aortic dissection, shingles, pneumothorax, aortic dissection, esophageal rupture, pericarditis. Because of complexity of patient's case laboratory testing and imaging studies were ordered.I laboratory studies were notable for subtherapeutic INR. the patient did not have significant anemia. A bedside ultrasound was performed which showed no pericardial effusion or right ventricular dysfunction. The patient is advised to reinstitute her Coumadin. Patient was given Lovenox subcutaneous. She was given prescription for Coumadin. The patient was advised to return if she began having persistent vomiting or shortness of breath or other concerns. Labs Test 10/01/16 19:00 White Blood Count 6.8 K/UL (4.8-10.8) Red Blood Count 4.16 M/UL (4.20-5.40) Hemoglobin 10.1 G/DL (12.0-16.0) Hematocrit 32.8 % (37.0-47.0) Mean Corpuscular Volume 79 FL (80-99) Mean Corpuscular Hemoglobin 24.4 PG (27.0-31.0) Mean Corpuscular Hemoglobin Concent 30.9 G/DL (32.0-36.0) Red Cell Distribution Width 15.3 % (11.6-14.8) Platelet Count 275 K/UL (150-450) Mean Platelet Volume 6.5 FL (6.5-10.1) Neutrophils (%) (Auto) 64.8 % (45.0-75.0) Lymphocytes (%) (Auto) 24.7 % (20.0-45.0) Monocytes (%) (Auto) 7.3 % (1.0-10.0) Eosinophils (%) (Auto) 2.2 % (0.0-3.0) Basophils (%) (Auto) 0.9 % (0.0-2.0) Prothrombin Time 9.5 SEC (9.30-11.50) Prothromb Time International Ratio 0.9 (0.9-1.1) Activated Partial Thromboplast Time 22 SEC (23-33) Troponin I < 0.30 ng/mL (<=0.30) Last Vital Signs Date Time Temp Pulse Resp B/P Pulse Ox O2 Delivery O2 Flow Rate FiO2 10/01/16 17:50 98.4 86 14 158/91 100 Room Air Status: improved Disposition: HOME, SELF-CARE Condition: Stable Scripts Warfarin Sod* (COUMADIN*) 10 Mg Tablet 10 MG ORAL DAILY, #30 TAB Prov: Pastor Parr 10/01/16 Pastor Parr October 01, 2016 18:14
[2016-10-01 18:15] VITALS: BP 162/85
[2016-10-01] MEDS ORDERED: Oxycodone/Acetaminophen 5-325 ORAL ONE (18:15)
[2016-10-01 19:23] LABS: BASOPHILS % (AUTO) 0.9 % (0.0-2.0); EOSINOPHILS % (AUTO) 2.2 % (0.0-3.0); LYMPHOCYTES % (AUTO) 24.7 % (20.0-45.0); MEAN CORPUSCULAR HEMOGLOBIN 24.4 PG (27.0-31.0); MEAN CORPUSCULAR HGB CONC 30.9 G/DL (32.0-36.0); MEAN CORPUSCULAR VOLUME 79 FL (80-99); MEAN PLATELET VOLUME 6.5 FL (6.5-10.1); MONOCYTES % (AUTO) 7.3 % (1.0-10.0); NEUTROPHILS % (AUTO) 64.8 % (45.0-75.0); PLATELET COUNT 275 K/UL (150-450); RED BLOOD COUNT 4.16 M/UL (4.20-5.40); RED CELL DISTRIBUTION WIDTH 15.3 % (11.6-14.8); WHITE BLOOD COUNT 6.8 K/UL (4.8-10.8)
[2016-10-01 19:30] LABS: INR 0.9 (0.9-1.1); PROTHROMBIN TIME 9.5 SEC (9.30-11.50)
[2016-10-01] MEDS ORDERED: Enoxaparin 80mg Inj SUBQ ONE (19:45)
[2016-10-01 19:51] LABS: TROPONIN I < 0.30 ng/mL (<=0.30)
[2016-10-01] MEDS ORDERED: COUMADIN10 MG ORAL (20:06)
[2016-10-01 20:15] VITALS: BP 162/85
[2016-10-01] MEDS ORDERED: Warfarin Sodium 10mg ORAL ONE (20:15)
[2016-10-01 20:33] LABS: ALANINE AMINOTRANSFERASE 18 U/L (3-33); ALBUMIN/GLOBULIN RATIO 1.1 (1.0-2.7); ANION GAP 15 (5-15); ASPARTATE AMINO TRANSFERASE 15 U/L (5-40); CALCIUM 9.3 mg/dL (8.6-10.2); CARBON DIOXIDE 23 mEQ/L (20-30); CHLORIDE 97 mEQ/L (98-107); CREATININE 0.6 mg/dL (0.5-0.9); GLOMERULAR FILTRATION RATE > 60 mL/min (>60); HEMOLYSIS 2; POTASSIUM 4.1 mEQ/L (3.4-4.9); SODIUM 135 mEQ/L (135-145); TOTAL PROTEIN 7.4 g/dL (6.6-8.7)
== END 2016-10-01 20:14 | disposition home or self-care (01) ==
LOC: EMR 18:19
DX: G89.29 Other chronic pain (principal); R79.1 Abnormal coagulation profile; Z86.711 Personal history of pulmonary embolism; Z88.6 Allergy status to analgesic agent; I10 Essential (primary) hypertension; E11.9 Type 2 diabetes mellitus without complications; Z90.49 Acquired absence of other specified parts of digestive tract; Z98.84 Bariatric surgery status
CPT/HCPCS: 36415; 80053; 84484; 85025; 85610; 85730; 96372; 99283; J1650